=== PATIENT | female | born 1970 | race Caucasian/White ===

== ENCOUNTER 2018-07-02 12:53 | Emergency (ER) | payer BC, OTHER ==
[2018-07-02] MEDS ORDERED: METOCLOPRAMIDE 10 MG/2mL INJ ONE (13:30)
[2018-07-02] MEDS ORDERED: MORPHINE 4 MG/ML SYR ONE (13:30)
[2018-07-02] MEDS ORDERED: ONDANSETRON 4 MG/2 ML VIAL ONE (13:31)
[2018-07-02] MEDS ORDERED: NA CHLORIDE 0.9% 1,000 ML ONE (13:31)
--- NOTE | 2018-07-02 13:41 | RAD REPORT ---
EXAM DESCRIPTION: CT - Head Brain Wo Cont - 07/02/2018 1:32 pm CLINICAL HISTORY: Severe headache COMPARISON: None. TECHNIQUE: Axial 5 mm thick images of the head were obtained without IV contrast. All CT scans are performed using dose optimization technique as appropriate and may include automated exposure control or mA/KV adjustment according to patient size. FINDINGS: No intracranial hemorrhage, mass, edema or shift of mid-line structures. No acute infarcti on changes seen. Mild volume loss changes are present. No cortical edema or sulcal effacement. Ventri cles are normal. Mastoid air cells and visualized portions of the paranasal sinuses are clear. No acute bony findings. IMPRESSION: Negative non-contrast CT head examination for acute finding.
[2018-07-02 13:50] LABS: Absolute Lymphocytes (CBC) 2.6 K/uL (0.7-4.9); Absolute Monocytes 0.6 K/uL (0.1-1.3); Absolute Neutrophil 5.2 K/uL (1.8-8.0); Basophils % 1.1 % (0-1.3); Eosinophils % 3.2 % (0-4.4); Hematocrit 42.6 % (36.0-45.0); Lymphocytes % 29.9 % (15.3-44.8); MCV 103.7 fL (80-100); MPV 10.4 fL (7.6-11.3); Monocytes % 6.6 % (3.3-12.3); RBC Red Blood Cell Count 4.11 M/uL (3.86-4.86)
[2018-07-02 13:53] LABS: Protime INR 0.88
[2018-07-02 14:01] LABS: Potassium 3.8 mmol/L (3.5-5.1)
--- NOTE | 2018-07-02 15:08 | RAD REPORT ---
EXAM DESCRIPTION: CT - Head angio - 07/02/2018 2:36 pm CLINICAL HISTORY: Headache COMPARISON: CT head same date TECHNIQUE: During dynamic enhancement using nonionic IV contrast axial 1 millimeter thick images of the head were obtained. Sagittal and coronal reformatted images were generated and reviewed using max imum intensity projection protocol. The CT scan was performed using dose optimization techniques as appropriate to a performed exam incl uding one or more of the following: Automated exposure control, adjustment of the mA and/or kV accord ing to patient size (this includes techniques or standardized protocols for targeted exams where dose is matched to indication/reason for exam) and use of iterative reconstruction technique. FINDINGS: No aneurysm or mid vascular malformation. No vasculitis are diffuse vascular process ident ifiable. There is no stenosis, major branch occlusion or other acute vascular finding. Major venous s inuses are all patent. No extravasation of contrast. IMPRESSION: Negative CT angio head examination.
--- NOTE | 2018-07-02 15:12 | RAD REPORT ---
EXAM DESCRIPTION: CT - Neck Angio - 07/02/2018 2:37 pm CLINICAL HISTORY: Severe headache COMPARISON: CT head same date TECHNIQUE: During dynamic enhancement using nonionic IV contrast, axial 2 millimeter thick images we re obtained. Sagittal and coronal reformatted images were generated and reviewed using maximum intens ity projection protocol. The CT scan was performed using dose optimization techniques as appropriate to a performed exam incl uding one or more of the following: Automated exposure control, adjustment of the mA and/or kV accord ing to patient size (this includes techniques or standardized protocols for targeted exams where dose is matched to indication/reason for exam) and use of iterative reconstruction technique. FINDINGS: The aortic arch is 3 vessel. There is no stenosis at the great vessel or vertebral artery origins. The common carotid, internal carotid and vertebral artery show no stenosis, dissection or fo micheline abnormality. There is no aneurysm or vascular malformation. No suspicious vascular finding. No house spicious finding in the soft tissues. IMPRESSION: Negative CT angio neck examination.
--- NOTE | 2018-07-02 15:21 | ER ---
Nurse's Notes [facility] Name: Sally Anderson Age: 48 yrs Sex: Female : 1970 Arrival Date: 07/02/2018 Time: 12:56 Bed 30 Private MD: None, None Diagnosis: Headache associated with sexual activity Presentation: 07/02 13:03 Presenting complaint: Patient states: Severe headache that started during intercourse hb yesterday at 1400. Also c/o neck stiffness x 2-3 days. Denies headache hx/fever. Transition of care: patient was not received from another setting of care. Onset of symptoms was July 01, 2018. Risk Assessment: Do you want to hurt yourself or someone else? Patient reports no desire to harm self or others. Care prior to arrival: None. 13:03 Method Of Arrival: Ambulatory hb 13:03 Acuity: SAMANTHA 3 hb 13:15 Initial Sepsis Screen: Does the patient meet any 2 criteria? No. Patient's initial kr2 sepsis screen is negative. Does the patient have a suspected source of infection? No. Patient's initial sepsis screen is negative. Triage Assessment: 13:10 Headache History: Denies prior headaches. General: Appears in no apparent distress. kr2 uncomfortable, well groomed, well developed, well nourished. General: Behavior is calm, cooperative, appropriate for age. Pain: Also complains of nausea, inability to perform activities of daily living. Pain: Complains of pain in base of the skull and occipital area Pain does not radiate. Pain currently is 8 out of 10 on a pain scale. Quality of pain is described as aching, dull, Pain began suddenly, Is continuous. Historical: - Allergies: 13:06 No Known Allergies; hb - Home Meds: 13:06 None [Active]; hb - PMHx: 13:06 None; hb - PSHx: 13:06 Cholecystectomy; hb 13:06 Appendectomy; Tonsillectomy; hb - Immunization history:: Adult Immunizations up to date. - Social history:: Smoking status: Patient/guardian denies using tobacco. - Ebola Screening: : No symptoms or risks identified at this time. - Family history:: not pertinent. - Hospitalizations: : No recent hospitalization is reported. Screenin:54 Abuse screen: Denies threats or abuse. Denies injuries from another. Nutritional kr2 screening: No deficits noted. Tuberculosis screening: No symptoms or risk factors identified. Fall Risk IV access (20 points). Assessment: 13:10 General: Appears in no apparent distress. uncomfortable, well groomed, well developed, kr2 well nourished, Behavior is calm, cooperative, appropriate for age. Pain: Complains of pain in occipital area and base of the skull Pain does not radiate. Pain currently is 8 out of 10 on a pain scale. Quality of pain is described as aching, dull, Pain began suddenly, Is continuous, Alleviated by nothing. Neuro: Level of Consciousness is awake, alert, obeys commands, Oriented to person, place, time, situation, Appropriate for age Melter Loader are equal bilaterally Moves all extremities. Gait is steady, Speech is normal, Facial symmetry appears normal, Pupils are PERRLA, Intact Reports headache occipital area. Cardiovascular: Capillary refill < 3 seconds in bilateral fingers Patient's skin is warm and dry. Respiratory: Airway is patent Respiratory effort is even, unlabored, Respiratory pattern is regular, symmetrical. GI: Abdomen is flat, non-distended, Reports nausea. : Denies burning with urination. EENT: Nares are clear bilaterally Oral mucosa is moist. Derm: Skin is intact, is healthy with good turgor, Skin is pink, warm \\T\\ dry. Musculoskeletal: Circulation, motion, and sensation intact. 14:00 Reassessment: Patient appears in no apparent distress at this time. Patient and/or kr2 family updated on plan of care and expected duration. Pain level reassessed. Patient is alert, oriented x 3, equal unlabored respirations, skin warm/dry/pink. 14:50 Reassessment: Patient appears in no apparent distress at this time. Patient and/or kr2 family updated on plan of care and expected duration. Pain level reassessed. Patient is alert, oriented x 3, equal unlabored respirations, skin warm/dry/pink. Patient states, "the pain has let up a lot" Patient states feeling better. Patient states symptoms have improved. 15:30 Reassessment: Patient appears in no apparent distress at this time. Patient and/or kr2 family updated on plan of care and expected duration. Pain level reassessed. Patient is alert, oriented x 3, equal unlabored respirations, skin warm/dry/pink. Patient states feeling better. Patient states symptoms have improved. Vital Signs: 13:05 BP 148 / 102; Pulse 88; Resp 16; Temp 98.1; Pulse Ox 100% on R/A; Weight 86.18 kg; hb Height 5 ft. 6 in. (167.64 cm); Pain 8/10; 13:50 BP 133 / 67; Pulse 60; Resp 17; Pulse Ox 98% on R/A; kr2 14:51 BP 123 / 80; Pulse 60; Resp 17; Pulse Ox 98% on R/A; kr2 15:31 BP 119 / 76; Pulse 62; Resp 15; Pulse Ox 99% on R/A; kr2 13:05 Body Mass Index 30.67 (86.18 kg, 167.64 cm) hb ED Course: 12:56 Patient arrived in ED. sb2 12:57 None, None is Private Physician. sb2 13:05 Triage completed. hb 13:06 Arm band placed on right wrist. hb 13:09 Jamal Barone MD is Attending Physician. rn 13:15 Radiology exam delayed due to lab results not completed at this time. (BUN/Creatinine). sw 13:15 Patient has correct armband on for positive identification. Placed in gown. Bed in low kr2 position. Call light in reach. Side rails up X 1. Pulse ox on. NIBP on. Door closed. Noise minimized. Warm blanket given. Head of bed elevated. 13:17 Jessica Bonilla, RN is Primary Nurse. kr2 13:32 CT Head Brain wo Cont In Process Unspecified. EDMS 13:37 Initial lab(s) drawn, by mn, sent to lab. Inserted saline lock: 20 gauge in right kr2 antecubital area, using aseptic technique. ,using aseptic technique. IV inserted by concrete engineering technician Blood collected. 14:34 CT completed. Patient tolerated procedure well. Patient moved to CT via wheelchair. Patient moved back from CT. 14:36 Head angio In Process Unspecified. EDMS 14:37 Neck Angio In Process Unspecified. EDMS 15:31 No provider procedures requiring assistance completed. IV discontinued, intact, kr2 bleeding controlled, No redness/swelling at site. Pressure dressing applied. Administered Medications: 13:30 Drug: Reglan 10 mg Route: IVP; Site: right antecubital; kr2 14:53 Follow up: Response: No adverse reaction; Pain is decreased; Nausea is decreased kr2 13:30 Drug: morphine 4 mg Route: IVP; Site: right antecubital; kr2 14:53 Follow up: Response: No adverse reaction; Pain is decreased kr2 13:30 Drug: Zofran 4 mg Route: IVP; Site: right antecubital; kr2 14:53 Follow up: Response: No adverse reaction; Nausea is decreased kr2 13:40 Drug: NS 0.9% 1000 ml Route: IV; Rate: 1000 ml; Site: right antecubital; kr2 14:54 Follow up: Response: No adverse reaction; IV Status: Completed infusion kr2 Outcome: 15:21 Discharge ordered by . rn 15:32 Discharged to home ambulatory. kr2 15:32 Condition: good 15:32 Discharge instructions given to patient, Instructed on discharge instructions, follow up and referral plans. Demonstrated understanding of instructions, follow-up care. 15:33 Patient left the ED. kr2 Signatures: Dispatcher [employer] Triny Rivera Roman, MD MD rn Warren, Shannon sw Baxter, Heather, RN RN Jessica Bonilla RN RN kr2 Peggy Car2 Corrections: (The following items were deleted from the chart) 13:09 13:03 Presenting complaint: Patient states: Severe headache that started during hb intercourse yesterday at 1400. Denies headache hx hb
--- NOTE | 2018-07-02 15:21 | EDPHYS ---
Physician Documentation [facility] Name: Sally Anderson Age: 48 yrs Sex: Female : 1970 Arrival Date: 07/02/2018 Time: 12:56 Bed 30 Private MD: None, None ED Physician Jamal Barone HPI: 07/02 13:20 The patient has elevated blood pressure and discovered this at home. Onset: The rn symptoms/episode began/occurred yesterday, at 14:30. Modifying factors:. Severity of symptoms: At its worst the blood pressure was moderate, in the emergency department the blood pressure is unchanged. The patient has not experienced similar symptoms in the past. REports sudden onset posterior headache that began during sex yesterday, no fever, no vomiting, thinks slept wrong because now left neck is hurting, no hx of headaches like this. . Historical: - Allergies: 13:06 No Known Allergies; hb - Home Meds: 13:06 None [Active]; hb - PMHx: 13:06 None; hb - PSHx: 13:06 Cholecystectomy; hb 13:06 Appendectomy; Tonsillectomy; hb - Immunization history:: Adult Immunizations up to date. - Social history:: Smoking status: Patient/guardian denies using tobacco. - Ebola Screening: : No symptoms or risks identified at this time. - Family history:: not pertinent. - Hospitalizations: : No recent hospitalization is reported. ROS: 13:20 Constitutional: Negative for fever, chills, and weight loss, Eyes: Negative for injury, rn pain, redness, and discharge, Neck: + left neck pain Cardiovascular: Negative for chest pain, palpitations, and edema, Respiratory: Negative for shortness of breath, cough, wheezing, and pleuritic chest pain, Abdomen/GI: Negative for abdominal pain, nausea, vomiting, diarrhea, and constipation, MS/Extremity: Negative for injury and deformity, Skin: Negative for injury, rash, and discoloration, Neuro: + headache, no focal weakness/tingling/seizure Exam: 13:20 Constitutional: This is a well developed, well nourished patient who is awake, alert, rn security to room on own, holding head Head/Face: Normocephalic, atraumatic. Eyes: Pupils equal round and reactive to light, extra-ocular motions intact. Lids and lashes normal. Conjunctiva and sclera are non-icteric and not injected. Cornea within normal limits. Periorbital areas with no swelling, redness, or edema. ENT: MMM Neck: Trachea midline, no thyromegaly or masses palpated, and no cervical lymphadenopathy. Supple, full range of motion without nuchal rigidity, or vertebral point tenderness. No Meningismus. Skin: Warm, dry, no rash MS/ Extremity: Pulses equal, no cyanosis. Neuro: Awake and alert, GCS 15, oriented to person, place, time, and situation. Cranial nerves II-XII grossly intact. Motor strength 5/5 in all extremities. Sensory grossly intact. Cerebellar exam normal. Normal gait. Vital Signs: 13:05 BP 148 / 102; Pulse 88; Resp 16; Temp 98.1; Pulse Ox 100% on R/A; Weight 86.18 kg; hb Height 5 ft. 6 in. (167.64 cm); Pain 8/10; 13:50 BP 133 / 67; Pulse 60; Resp 17; Pulse Ox 98% on R/A; kr2 14:51 BP 123 / 80; Pulse 60; Resp 17; Pulse Ox 98% on R/A; kr2 15:31 BP 119 / 76; Pulse 62; Resp 15; Pulse Ox 99% on R/A; kr2 13:05 Body Mass Index 30.67 (86.18 kg, 167.64 cm) hb MDM: 13:09 Patient medically screened. rn 15:18 Differential diagnosis: hypertensive crisis, Malignant HTN, intracerebral hemorrhage, rn aneurysm, sex related headache, vascular headache. Data reviewed: vital signs, nurses notes, lab test result(s), radiologic studies, CT scan, and as a result, I will discharge patient. Counseling: I had a detailed discussion with the patient and/or guardian regarding: the historical points, exam findings, and any diagnostic results supporting the discharge/admit diagnosis, lab results, radiology results, the need for outpatient follow up, to return to the emergency department if symptoms worsen or persist or if there are any questions or concerns that arise at home. Response to treatment: the patient's symptoms have markedly improved after treatment, and as a result, I will discharge patient. Special discussion: I discussed with the patient/guardian in detail that at this point there is no indication for admission to the hospital. It is understood, however, that if the symptoms persist or worsen the patient needs to return immediately for re-evaluation. 07/02 13:09 Order name: CBC with Diff; Complete Time: 14:05 rn 07/02 13:09 Order name: Basic Metabolic Panel; Complete Time: 14:05 rn 07/02 13:09 Order name: Protime (+inr); Complete Time: 14:05 rn 07/02 13:09 Order name: Ptt, Activated; Complete Time: 14:05 rn 07/02 13:09 Order name: CT Head Brain wo Cont; Complete Time: 14:05 rn 07/02 15:32 Order name: Urine Dipstick--Ancillary (enter results) bd 07/02 13:09 Order name: IV Start; Complete Time: 13:41 rn 07/02 13:13 Order name: Head angio; Complete Time: 15:14 EDMS 07/02 13:13 Order name: Neck Angio; Complete Time: 15:14 EDMS Administered Medications: 13:30 Drug: Reglan 10 mg Route: IVP; Site: right antecubital; kr2 14:53 Follow up: Response: No adverse reaction; Pain is decreased; Nausea is decreased kr2 13:30 Drug: morphine 4 mg Route: IVP; Site: right antecubital; kr2 14:53 Follow up: Response: No adverse reaction; Pain is decreased kr2 13:30 Drug: Zofran 4 mg Route: IVP; Site: right antecubital; kr2 14:53 Follow up: Response: No adverse reaction; Nausea is decreased kr2 13:40 Drug: NS 0.9% 1000 ml Route: IV; Rate: 1000 ml; Site: right antecubital; kr2 14:54 Follow up: Response: No adverse reaction; IV Status: Completed infusion kr2 Disposition: 07/02/18 15:21 Discharged to Home. Impression: Headache associated with sexual activity. - Condition is Stable. - Discharge Instructions: Migraine Headache. - Medication Reconciliation Form, Thank You Letter, Antibiotic Education, Prescription Opioid Use form. - Follow up: Private Physician; When: As needed; Reason: Recheck today's complaints, Re-evaluation by your physician. - Problem is new. - Symptoms have improved. Signatures: Dispatcher [employer] EDMS Jamal Barone MD MD rn Baxter, Heather, RN RN hb Reaves, Jessica, RN RN kr2 Corrections: (The following items were deleted from the chart) 15:33 15:21 07/02/2018 15:21 Discharged to Home. Impression: Headache associated with sexual kr2 activity. Condition is Stable. Forms are Medication Reconciliation Form, Thank You Letter, Antibiotic Education, Prescription Opioid Use. Follow up: Private Physician; When: As needed; Reason: Recheck today's complaints, Re-evaluation by your physician. Problem is new. Symptoms have improved. rn
[2018-07-02 18:34] LABS: Urine Blood NEGATIVE (NEG); Urine Glucose NEGATIVE (NEG); Urine Protein NEGATIVE (NEG); Urine pH 5.5 (5.0-7.0)
== END 2018-07-02 15:33 | disposition home or self-care (01) ==
LOC: ER 12:53
DX: G44.82 Headache associated with sexual activity (principal)
CPT/HCPCS: 36415; 70450; 70496; 70498; 80048; 81003; 85025; 85610; 85730; 96361; 96374; 96375; 99284; J2405; J2765; J7030; Q9967

== ENCOUNTER 2021-06-17 19:29 | Emergency (ER) | payer BC, OTHER ==
--- NOTE | 2021-06-17 20:48 | EDPHYS ---
Physician Documentation [facility] Name: Sally Anderson Age: 51 yrs Sex: Female : 1970 Arrival Date: 06/17/2021 Time: 19:30 Bed 3 Private MD: ED Physician Robb Call HPI: 06/17 20:05 This 51 yrs old Female presents to ER via Ambulatory with complaints of pkl Breathing Difficulty, ARM SWELLING, Allergic Reaction. 20:05 The patient has shortness of breath at rest. Onset: The symptoms/episode began/occurred pkl just prior to arrival. Patient was stung several times on her left hand by a yellow jacket about 3 hours ago. Now complain of difficulty breathing. 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 - Social history:: Smoking status: unknown. ROS: 20:05 Eyes: Negative for injury, pain, redness, and discharge, ENT: Negative for injury, pkl pain, and discharge, Neck: Negative for injury, pain, and swelling, Cardiovascular: Negative for chest pain, palpitations, and edema. 20:05 Respiratory: Positive for shortness of breath, wheezing. 20:05 Abdomen/GI: Negative for abdominal pain, nausea, vomiting, and diarrhea. 20:05 Back: Negative for acute changes. 20:05 : Negative for urinary symptoms. 20:05 MS/extremity: Positive for bite, swelling, of the left hand. 20:05 Neuro: Negative for altered mental status, loss of consciousness. Exam: 20:05 Head/Face: Normocephalic, atraumatic. Eyes: Pupils equal round and reactive to light, pkl extra-ocular motions intact. Lids and lashes normal. Conjunctiva and sclera are non-icteric and not injected. Cornea within normal limits. Periorbital areas with no swelling, redness, or edema. ENT: Nares patent. No nasal discharge, no septal abnormalities noted. Tympanic membranes are normal and external auditory canals are clear. Oropharynx with no redness, swelling, or masses, exudates, or evidence of obstruction, uvula midline. Mucous membranes moist. Neck: Trachea midline, no thyromegaly or masses palpated, and no cervical lymphadenopathy. Supple, full range of motion without nuchal rigidity, or vertebral point tenderness. No Meningismus. Chest/axilla: Normal chest wall appearance and motion. Nontender with no deformity. No lesions are appreciated. Cardiovascular: Regular rate and rhythm with a normal S1 and S2. No gallops, murmurs, or rubs. Normal PMI, no JVD. No pulse deficits. 20:05 Respiratory: mild respiratory distress is noted, Respirations: labored breathing, that is mild, Breath sounds: bronchial sounds, that are mild, are scattered, rhonchi, that are mild, are scattered. 20:05 Abdomen/GI: Bowel sounds: normal, Palpation: abdomen is soft and non-tender, in all quadrants. 20:05 Back: Exam negative for acute changes. 20:05 : Exam negative for acute changes. 20:05 Musculoskeletal/extremity: Extremities: grossly normal except: noted in the left hand: pain, swelling. 20:05 Neuro: Orientation: is normal, Mentation: is normal, Cranial nerves: grossly normal, pkl Motor: is normal. Vital Signs: 19:37 BP 129 / 102; Pulse 99; Resp 28 S; Pulse Ox 96% on R/A; Weight 81.65 kg (R); Height 5 bb ft. 6 in. (167.64 cm) (R); 19:38 BP 129 / 102; Pulse 96; Resp 28; Temp 98.0(O); Pulse Ox 97% on 4 lpm NC; oe 21:00 BP 119 / 88; Pulse 84; Resp 18; Temp 98.7; Pulse Ox 100% on R/A; Pain 0/10; wg 19:37 Body Mass Index 29.05 (81.65 kg, 167.64 cm) bb MDM: 19:51 Patient medically screened. pkl 20:45 Data reviewed: vital signs, nurses notes. ED course: Patient feeling better. No pkl respiratory distress noted. Advised to return if necessary. Administered Medications: 19:49 Drug: NS 0.9% 500 ml Route: IV; Rate: bolus; Site: left antecubital; ea 20:00 Follow up: IV Status: Completed infusion; IV Intake: 500ml wg 19:50 Drug: NS 0.9% 1000 ml Route: IV; Rate: 125 ml/hr; Site: left antecubital; ea 21:00 Follow up: IV Status: Completed infusion; IV Intake: 250ml wg 19:50 Drug: SOLU-Medrol (methylPrednisoLONE) 125 mg Route: IVP; Site: left antecubital; ea 21:09 Follow up: Response: No adverse reaction wg 19:53 Drug: EPINEPHrine 1mg/mL 1:1,000 0.3 ml Route: Sub-Q; Site: right upper arm; ea 21:08 Follow up: Response: No adverse reaction wg 19:54 Drug: Pepcid (famotidine) 10 mg Route: IVP; Site: left antecubital; ea 21:08 Follow up: Response: No adverse reaction wg 19:54 Drug: Benadryl (diphenhydrAMINE) 25 mg Route: IVP; Site: left antecubital; ea 21:08 Follow up: Response: No adverse reaction wg Disposition Summary: 06/17/21 20:47 Discharge Ordered Location: Home pkl Problem: new pkl Symptoms: have improved pkl Condition: Stable pkl Diagnosis - Acute allergic reaction. Stung by yellow jacket lrft hand pkl Followup: pkl - With: Private Physician - When: 2 - 3 days - Reason: Re-evaluation by your physician Forms: - Medication Reconciliation Form pkl - Thank You Letter pkl - Antibiotic Education pkl - Prescription Opioid Use pkl Signatures: Robb Call MD MD pkl Latricia Dixon, Kathi Lang RN, RN RN ea Gamba, Liam, RN
--- NOTE | 2021-06-17 20:48 | ER ---
Nurse's Notes [facility] Name: Sally Anderson Age: 51 yrs Sex: Female : 1970 Arrival Date: 06/17/2021 Time: 19:30 Bed 3 Private MD: Diagnosis: Acute allergic reaction. Stung by yellow jacket lrft hand Presentation: 06/17 19:37 Chief complaint: Patient states: she was bitten by a yellow jacket several times on her bb left hand about 3 to 4 this afternoon took 2 Benadryl but symptoms are worsening she is short of breath and is having difficulty breathing. Coronavirus screen: At this time, the client does not indicate any symptoms associated with coronavirus-19. Ebola Screen: No symptoms or risks identified at this time. Initial Sepsis Screen: Does the patient meet any 2 criteria? No. Patient's initial sepsis screen is negative. Does the patient have a suspected source of infection? No. Patient's initial sepsis screen is negative. Risk Assessment: Do you want to hurt yourself or someone else? Patient reports no desire to harm self or others. Onset of symptoms was June 17, 2021. 19:37 Method Of Arrival: Ambulatory 19:37 Acuity: SAMANTHA 2 bb Triage Assessment: 21:07 General: Appears distressed, Behavior is anxious. Respiratory: Reports shortness of wg breath Onset: The symptoms/episode began/occurred today, the patient has moderate shortness of breath. 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 - Social history:: Smoking status: unknown. Screenin:54 Abuse screen: Denies threats or abuse. Nutritional screening: No deficits noted. ea Tuberculosis screening: No symptoms or risk factors identified. Fall Risk None identified. Assessment: 19:30 General: Appears uncomfortable, Behavior is appropriate for age. Pain: Complains of ea pain in left hand. Neuro: Level of Consciousness is awake, alert, obeys commands, Oriented to person, place, time. Cardiovascular: Patient's skin is warm and dry. Respiratory: Airway is patent Respiratory effort is even, labored, Respiratory pattern is tachypnea. Derm: Skin is pink, warm \T\ dry. 21:07 Cardiovascular: Rhythm is regular. Respiratory: Breath sounds are clear bilaterally. wg Vital Signs: 19:37 BP 129 / 102; Pulse 99; Resp 28 S; Pulse Ox 96% on R/A; Weight 81.65 kg (R); Height 5 bb ft. 6 in. (167.64 cm) (R); 19:38 BP 129 / 102; Pulse 96; Resp 28; Temp 98.0(O); Pulse Ox 97% on 4 lpm NC; oe 21:00 BP 119 / 88; Pulse 84; Resp 18; Temp 98.7; Pulse Ox 100% on R/A; Pain 0/10; wg 19:37 Body Mass Index 29.05 (81.65 kg, 167.64 cm) bb ED Course: 19:30 Patient arrived in ED. cf2 19:39 Triage completed. bb 19:39 Arm band placed on Patient placed in an exam room, on a stretcher, on pulse oximetry. bb 19:47 Kathi Redmond, ROSHAN is Primary Nurse. ea 19:51 Robb Call MD is Attending Physician. pkl 19:53 Inserted saline lock: 18 gauge in left forearm, using aseptic technique. wg 19:54 Patient has correct armband on for positive identification. Bed in low position. Call ea light in reach. Side rails up X2. 21:07 IV discontinued, intact, bleeding controlled, No redness/swelling at site. Pressure wg dressing applied. 21:08 No provider procedures requiring assistance completed. wg Administered Medications: 19:49 Drug: NS 0.9% 500 ml Route: IV; Rate: bolus; Site: left antecubital; ea 20:00 Follow up: IV Status: Completed infusion; IV Intake: 500ml wg 19:50 Drug: NS 0.9% 1000 ml Route: IV; Rate: 125 ml/hr; Site: left antecubital; ea 21:00 Follow up: IV Status: Completed infusion; IV Intake: 250ml wg 19:50 Drug: SOLU-Medrol (methylPrednisoLONE) 125 mg Route: IVP; Site: left antecubital; ea 21:09 Follow up: Response: No adverse reaction wg 19:53 Drug: EPINEPHrine 1mg/mL 1:1,000 0.3 ml Route: Sub-Q; Site: right upper arm; ea 21:08 Follow up: Response: No adverse reaction wg 19:54 Drug: Pepcid (famotidine) 10 mg Route: IVP; Site: left antecubital; ea 21:08 Follow up: Response: No adverse reaction wg 19:54 Drug: Benadryl (diphenhydrAMINE) 25 mg Route: IVP; Site: left antecubital; ea 21:08 Follow up: Response: No adverse reaction wg Intake: 20:00 IV: 500ml; Total: 500ml. wg 21:00 IV: 250ml; Total: 750ml. wg Outcome: 20:47 Discharge ordered by . delvis 21:06 Discharged to home ambulatory. wg 21:06 Condition: stable 21:06 Discharge instructions given to patient, Instructed on discharge instructions, follow up and referral plans. medication usage, Demonstrated understanding of instructions, follow-up care, medications, Prescriptions given X 1. 21:10 Patient left the ED. wg Signatures: Robb Call MD MD pkl Ballard, Brenda RN RN Pepe Hopson Elena, RN RN ea Frazier, Celesta Ronen Harrison RN
[2021-06-17 22:23] VITALS: BP 119/88; TEMP 98.7; O2SAT 100
== END 2021-06-17 21:10 | disposition home or self-care (01) ==
LOC: ER 19:29
DX: T63.461A Toxic effect of venom of wasps, accidental (unintentional), initial encounter (principal); Z91.030 Bee allergy status; Z91.038 Other insect allergy status
CPT/HCPCS: 96361; 96372; 96374; 96375; 99284

== ENCOUNTER 2023-05-24 21:59 | Emergency (ER) | payer BC, OTHER ==
--- OUTSIDE RECORDS SUMMARY | 2023-05-24 22:04 | XMS REPORT | Continuity of Care Document ---
:1970 Author Organization [facility] t Address [address] [place] [address] [place] [id number] Care Team Providers Name Role Phone Brunilda Cleaning Primary Care Physician Brunilda Cleaning Attending Clinician Unavailable Thao Kulkarni Attending Clinician Unavailable THAO KULKARNI Attending Clinician Unavailable Any Grant MD Attending Clinician Jacquie Crespo LVN Attending Clinician Jarrett Navarro MD Attending Clinician Braydon Perkins DO Attending Clinician Asif Martinez MD Attending Clinician ASIF MARTNIEZ Attending Clinician Unavailable Justin Cadena MD Attending Clinician [place] [employer] CRNA Attending Clinician Thao Kulkarni Admitting Clinician Unavailable Asif Martinez MD Admitting Clinician ASIF MARTINEZ Admitting Clinician Unavailable Payers Payer Name Policy Type Policy Number Effective Date Expiration Date [place] 6 [id number] [facility]iri t [employer] of - [facility] Problems Condition Condition Condition Status Onset Resolution Last Treating Co mments Source Name Details Category Date Date Treatment Clinician Date Perforated Perforated Disease Active 2020-10 U nivers appendix appendix 2-05 ity of 00:00: [place] 00 Medical Branch Acute Acute Disease Active 2020-10 Univers appendicit appendicit 2-04 it y of is with is with 00:00: [place] perforatio perforatio 00 Me dical n and n and Branch generalize generalize d d peritoniti peritoniti s, without s, without abscess or abscess or gangrene gangrene [id number] [place], [place] n [id number] joint, Spirit knee, - [facility] right [facility] [id number] Pain, [place] [id number] joint, [facility] knee, left - [facility] [id number] Other tear Problem Co mmon of medial Spirit meniscus - [facility] of right [facility] knee as [facility] current Medical injury, Center subsequent encounter [id number] Primary Problem Comm on osteoarthr Spirit itis of - [facility] right knee [facility] [id number] Pre-op Problem Common testing Spirit - [facility] [id number] Status Problem 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 [facility] Allergies, Adverse Reactions, Alerts Allergy Allergy Status Severity Reaction(s) Onset Inactive Treating Comm ents Source Name Type Date Date Clinician No Known DA Active U [facility] Allergie 1-13 [facility] [place] NO KNOWN Drug Active Univers ALLERGIE Class ity of S [facility] Social History Social Habit Start Date Stop Date Quantity Comments Source History SDOH University o f Alcohol Frequency [place] [facility] History SDOH University o f Alcohol Std Drinks [place] [facility] History SDOH University o f Alcohol Binge [place] [facility] al [facility] Exposure to Not sure University of SARS-CoV-2 (event) [facility] Gender identity [facility] Sexual orientation [facility] History of Tobacco [facility] - Use [facility] Alcohol intake 2021-09-06 2021-09-06 Current drinker Unive rsity of 00:00:00 00:00:[address] [facility] [place] ([facility] [place] Tobacco use and 2021-09-04 2021-09-04 Never used Universit y of exposure 00:00:00 00:00:00 [facility] Alcohol Comment 2021-09-04 2021-09-04 social drinker Unive rsity of 00:00:00 00:00:00 [facility] Sex Ass[birth year] At [birth year] [facility] Smoking Status Start Date Stop Date Source Tobacco smoking consumption [facility] unknown Never Smoker [facility] - [facility] Medications Ordered Filled Start Stop Current Ordering Indication Dosage Frequency Signature Comments Components Source Medication Medication Date Date Medication? Clinician (SIG) Name Name Acetaminoph Acetaminoph No 1{table Acetaminop en-Codeine en-Codeine - t_as_ne hen-Codein #3 300-30 #3 300-30 00:00: eded} e #3 MG MG 00 300-30 MG Acetaminoph Acetaminoph No 1{table Acetaminop en-Codeine en-Codeine - t_as_ne hen-Codein #3 300-30 #3 300-30 00:00: eded} e #3 MG MG 00 300-30 MG Acetaminoph Acetaminoph No 1{table Acetaminop en-Codeine en-Codeine - t_as_ne hen-Codein #3 300-30 #3 300-30 00:00: eded} e #3 MG MG 00 300-30 MG Mobic 7.5 Mobic 7.5 2021- No 1{table QD Mobic 7.5 MG MG 06-02 t} MG 00:00: 00:00 00 :00 Mobic 7.5 Mobic 7.5 2021- No 1{table QD Mobic 7.5 MG MG 06-02 t} MG 00:00: 00:00 00 :00 Mobic 7.5 Mobic 7.5 2021- No 1{table QD Mobic 7.5 MG MG 06-02 t} MG 00:00: 00:00 00 :00 Mobic 7.5 Mobic 7.5 2021- No 1{table QD Mobic 7.5 MG MG 06-02 t} MG 00:00: 00:00 00 :00 Mobic 7.5 Mobic 7.5 2021- No 1{table QD Mobic 7.5 MG MG 06-02 t} MG 00:00: 00:00 00 :00 Mobic 7.5 Mobic 7.5 2021- No 1{table QD Mobic 7.5 MG MG 06-02 t} MG 00:00: 00:00 00 :00 Mobic 7.5 Mobic 7.5 2021- No 1{table QD Mobic 7.5 MG MG 06-02 t} MG 00:00: 00:00 00 :00 Mobic 7.5 Mobic 7.5 2021- No 1{table QD Mobic 7.5 MG MG 06-02 t} MG 00:00: 00:00 00 :00 KCL 2020-10- No 40meq 40 mEq, Univers (KLOR-CON 2- 12- Oral, ity of M20) tablet 15:30: 14:55 ONCE, 1 [place] 40 mEq 00 :00 dose, On Medical [facility] Branch 09/06/21 at 0930, Routine SIMVASTATIN 2020-10 Yes 5mg Take 5 mg U nivers ORAL 2-06 by mouth. ity of 13:18: [address] sertraline 2020-10 Yes 100mg Take 100 Un ruben HCl 2-06 mg by ity of (SERTRALINE 13:18: [place] ORAL[place] [address] [place] [address] metformin 2020-10 Yes 500mg Take 500 Uni vers ER 500 mg 2-06 mg by ity of 24 hr 13:18: mouth [place] tablet 09 daily with Medical breakfast. Branch SIMVASTATIN 2020-10 Yes 5mg Take 5 mg U nivers ORAL 2-06 by mouth. ity of 13:18: [address] sertraline 2021-1 Yes 100mg Take 100 Un rub[place] HCl 2-06 mg by ity of (SERTRALINE 13:18: [place] ORAL[place] Medical Branch metformin 2020-10 Yes 500mg Take 500 Uni vers ER 500 mg 2-06 mg by ity of 24 hr 13:18: mouth [place] tablet 09 daily with Medical breakfast. Branch SIMVASTATIN 2020-10 Yes 5mg Take 5 mg U nivers ORAL 2-06 by mouth. ity of 13:18: [address] Branch sertraline 2020-10 Yes 100mg Take 100 Un ruben HCl 2-06 mg by ity of (SERTRALINE 13:18: [place] ORAL[place] metformin 2020-10 Yes 500mg Take 500 Uni vers ER 500 mg 2-06 mg by ity of 24 hr 13:18: mouth [place] tablet 09 daily with Medical breakfast. Branch SIMVASTATIN 2020-10 Yes 5mg Take 5 mg U nivers ORAL 2-06 by mouth. ity of 13:18: [address] sertraline 2020-10 Yes 100mg Take 100 Un ruben HCl 2-06 mg by ity of (SERTRALINE 13:18: [place] ORAL[place] [facility] Branch metformin 2020-10 Yes 500mg Take 500 Uni vers ER 500 mg 2-06 mg by ity of 24 hr 13:18: mouth [place] tablet 09 daily with Medical breakfast. Branch SIMVASTATIN 2020-10 Yes 5mg Take 5 mg U nivers ORAL 2-06 by mouth. ity of 13:18: [address] Branch sertraline 2020-10 Yes 100mg Take 100 Un ruben HCl 2-06 mg by ity of (SERTRALINE 13:18: [place] OR[place] [address] [place] [address] Branch metformin 2020-10 Yes 500mg Take 500 Uni vers ER 500 mg 2-06 mg by ity of 24 hr 13:18: mouth [place] tablet 09 daily with Medical breakfast. Branch SIMVASTATIN 2020-10 Yes 5mg Take 5 mg U nivers ORAL 2-06 by mouth. ity of 13:18: [address] Branch sertraline 2020-10 Yes 100mg Take 100 Un ruben HCl 2-06 mg by ity of (SERTRALINE 13:18: [place] ORAL[place] [facility] metformin 2020-10 Yes 500mg Take 500 Uni vers ER 500 mg 2-06 mg by ity of 24 hr 13:18: mouth [place] tablet 09 daily with Medical breakfast. Branch SIMVASTATIN 2020-10 Yes 5mg Take 5 mg U nivers ORAL 2-06 by mouth. ity of 13:18: [place] 09 Medical Branch sertraline 2020-10 Yes 100mg Take 100 Un ruben HCl 2-06 mg by ity of (SERTRALINE 13:18: [place]. [place] ORAL[place] 09 [place] Branch metformin 2020-10 Yes 500mg Take 500 Uni vers ER 500 mg 2-06 mg by ity of 24 hr 13:18: mouth [place] tablet 09 daily with Medical breakfast. Branch SIMVASTATIN 2020-10 Yes 5mg Take 5 mg U nivers ORAL 2-06 by mouth. ity of 13:18: [place] 09 Medical Branch sertraline 2020-10 Yes 100mg Take 100 Un ruben HCl 2-06 mg by ity of (SERTRALINE 13:18: [place]. [place] ORAL[place] 09 [place] Branch metformin 2020-10 Yes 500mg Take 500 Uni vers ER 500 mg 2-06 mg by ity of 24 hr 13:18: mouth [place] tablet 09 daily with Medical breakfast. Branch phentermine 2020-10- No 37.5mg Take 37.5 Univers 37.5 mg 2-06 12-06 mg by ity of capsule 11:44: 00:00 mouth [place] 07 :00 every Medical morning. Branch phentermine 2020-10 No 37.5mg Take 37.5 Univers 37.5 mg 2-06 12-06 mg by ity of capsule 11:44: 00:00 mouth [place] 07 :00 every Medical morning. Branch phentermine 2020-10- No 37.5mg Take 37.5 Univers 37.5 mg 2-06 12-06 mg by ity of capsule 11:44: 00:00 mouth [place] 07 :00 every Medical morning. Branch HYDROcodone 2020-10 Yes [id number] 1{tbl} Take 1 Un ruben -acetaminop 2-06 tablet by ity of hen 5-325 00:00: mouth [place] mg tablet 00 every 6 Medical (six) Branch hours as needed for Pain (scale 7-10). Indication s: acute pain HYDROcodone 2020-10 Yes [id number] 1{tbl} Take 1 Un ruben -acetaminop 2-06 tablet by ity of hen 5-325 00:00: mouth [place] mg tablet 00 every 6 Medical (six) Branch hours as needed for Pain (scale 7-10). Indication s: acute pain HYDROcodone 2020-10 Yes 4647 1{tbl} Take 1 Un ruben -acetaminop 2-06 tablet by ity of hen 5-325 00:00: mouth [place] mg tablet 00 every 6 Medical (six) Branch hours as needed for Pain (scale 7-10). Indication s: acute pain HYDROcodone 2020-10 Yes 4647 1{tbl} Take 1 Un ruben -acetaminop 2-06 tablet by ity of hen 5-325 00:00: mouth [place] mg tablet 00 every 6 Medical (six) Branch hours as needed for Pain (scale 7-10). Indication s: acute pain HYDROcodone 2020-10 Yes 4647 1{tbl} Take 1 Un ruben -acetaminop 2-06 tablet by ity of hen 5-325 00:00: mouth [place] mg tablet 00 every 6 Medical (six) Branch hours as needed for Pain (scale 7-10). Indication s: acute pain HYDROcodone 2020-10 Yes 4647 1{tbl} Take 1 Un ruben -acetaminop 2-06 tablet by ity of hen 5-325 00:00: mouth [place] mg tablet 00 every 6 Medical (six) Branch hours as needed for Pain (scale 7-10). Indication s: acute pain HYDROcodone 2020-10 Yes 4647 1{tbl} Take 1 Un ruben -acetaminop 2-06 tablet by ity of hen 5-325 00:00: mouth [place] mg tablet 00 every 6 Medical (six) Branch hours as needed for Pain (scale 7-10). Indication s: acute pain HYDROcodone 2020-10 Yes 4647 1{tbl} Take 1 Un ruben -acetaminop 2-06 tablet by ity of hen 5-325 00:00: mouth [place] mg tablet 00 every 6 Medical (six) Branch hours as needed for Pain (scale 7-10). Indication s: acute pain amoxicillin 2020-10 202- No [id number] 1{tbl} Take 1 Univers -clavulanat 2-06 12-15 tablet by it y of e 00:00: 05:59 mouth 2 [place] (AUGMENTIN) 00 :00 (two) Medical 875-125 mg times Branch per tablet daily for 8 days. amoxicillin 2020-10- No [id number] 1{tbl} Take 1 Univers -clavulanat 2-06 12-15 tablet by it y of e 00:00: 05:59 mouth 2 [place] (AUGMENTIN) 00 :00 (two) Medical 875-125 mg times Branch per tablet daily for 8 days. amoxicillin 2020-10- No [id number] 1{tbl} Take 1 Univers -clavulanat 2-06 12-15 tablet by it y of e 00:00: 05:59 mouth 2 [place] (AUGMENTIN) 00 :00 (two) Medical 875-125 mg times Branch per tablet daily for 8 days. amoxicillin 2020-10 No [id number] 1{tbl} Take 1 Univers -clavulanat 2- 12-15 tablet by it y of e 00:00: 05:59 mouth 2 [place] (AUGMENTIN) 00 :00 (two) Medical 875-125 mg times Branch per tablet daily for 8 days. amoxicillin 2020-10 No [id number] 1{tbl} Take 1 Univers -clavulanat 2- 12-15 tablet by it y of e 00:00: 05:59 mouth 2 [place] (AUGMENTIN) 00 :00 (two) Medical 875-125 mg times Branch per tablet daily for 8 days. potassium 2020-10 10meq 10 mEq, IV Univers chloride in 11-06 Piggyback, i ty of water 10 18:00: 21:38 Q1H, 3 [place] mEq/100 mL 00 :00 doses, Medical RTU 10 mEq First dose Bra nch (after last modificati on) on 09/05/21 at 1200, Last dose on 09/05/21 at 1400, Administer over 60 Minutes, 100 mL lidocaine 2020-10 PRN, Univers 1% 11-06 Starting ity of (XYLOCAINE) 17:16: 18:03 on Sun [place] 10 mg/mL (1 00 :46 09/05/21 at Me dical %) 1116, Branch injection Until 09/05/21 at 1203, Routine, Intra-op morpHINE 2020-10 Yes 2mg 2 mg, Slow Uni vers injection 2 2-05 IV Push, ity of mg 17:04: Q4HPRN, [place] [id number] Starting Medical on Sun Branch 09/05/21 at 1104, Until Discontinu ed, Routine, Breakthrou gh pain morpHINE 2020-10 Yes 2mg 2 mg, Slow Uni vers injection 2 2-05 IV Push, ity of mg 17:04: [place] [address] Starting Medical on Sun Branch 09/05/21 at 1104, Until Discontinu ed, Routine, Breakthrou gh pain HYDROcodone 2020-10 Yes 1{tbl} 1 tablet, Univers -acetaminop 2-05 Oral, ity of hen (NORCO) 17:04: Q6HPRN, [place] 10-325 mg 27 Starting Medica l tablet 1 on Sun Branch tablet 09/05/21 at 1104, Until Discontinu ed, Routine, Pain (scale 7-10) HYDROcodone 2020-10 Yes 1{tbl} 1 tablet, Univers -acetaminop 2-05 Oral, ity of hen (NORCO) 17:04: Q6HPRN, [place] 10-325 mg 27 Starting Medica l tablet 1 on Sun Branch tablet 09/05/21 at 1104, Until Discontinu ed, Routine, Pain (scale 7-10) HYDROcodone 2020-10 Yes 1{tbl} 1 tablet, Univers -acetaminop 2-05 Oral, ity of hen (NORCO 17:04: Q6HPRN, [place] 5) 5-325 mg 16 Starting Medi micheline tablet 1 on Sun Branch tablet 09/05/21 at 1104, Until Discontinu ed, Routine, Pain (scale 4-6) HYDROcodone 2020-10 Yes 1{tbl} 1 tablet, Univers -acetaminop 2-05 Oral, ity of hen (NORCO 17:04: Q6HPRN, [place] 5) 5-325 mg 16 Starting Medi micheline tablet 1 on Sun Branch tablet 09/05/21 at 1104, Until Discontinu ed, Routine, Pain (scale 4-6) ibuprofen 2020-10 Yes 400mg 400 mg, Univ ers (IBU) 2-05 Oral, ity of tablet 400 17:03: Q6HPRN, [place] mg 12 Starting Medical on Sun Branch 09/05/21 at 1103, Until Discontinu ed, Routine, Pain (scale 1-3) ibuprofen 2020-10 Yes 400mg 400 mg, Univ ers (IBU) 2-05 Oral, ity of tablet 400 17:03: Q6HPRN, [place] mg 12 Starting Medical on Sun Branch 09/05/21 at 1103, Until Discontinu ed, Routine, Pain (scale 1-3) bupivacaine 2020-10- No PRN, Unive rs (preserv 11-06 Starting ity of free) 0.5% 16:06: 18:03 on Sun [place] (SENSORCAIN 00 :46 09/05/21 at Pa dictx E [facility]) 0.5 1006, Branch % (5 mg/mL) Until Sun injection 09/05/21 at 1203, Routine, Intra-op piperacilli 2020-10 Yes 3.375g 3.375 g, Univers n-tazobacta 2-05 IV ity of m (ZOSYN) 15:45: [place]back, [place] 3.375 g in 00 Q6H ABX, Medic al NaCl 0.9% First dose Bran ch (NS) 100 mL on Sun MINI-BAG 09/05/21 at 0945, Until Discontinu ed, Administer over 30 Minutes, 100 mL
Reas on for Anti-Infec tive: Documented Infection< br>Documen alejandra Infection Site: Abdominal< br>Duratio n of Therapy: 14 days piperacilli 2020-10 Yes 3.375g 3.375 g, Univers n-tazobacta 2-05 IV ity of m (ZOSYN) 15:45: [place], [place] 3.375 g in 00 Q6H ABX, Medic al NaCl 0.9% First dose Bran ch (NS) 100 mL on Sun MINI-BAG 09/05/21 at 0945, Until Discontinu ed, Administer over 30 Minutes, 100 mL
Reas on for Anti-Infec tive: Documented Infection< br>Documen alejandra Infection Site: Abdominal< br>Duratio n of Therapy: 14 days sodium 2020-10- No PRN, Univers chloride 11-06 Starting ity of 0.9 % 15:45: 18:03 on [place] irrigation 00 :46 09/05/21 at Med ical solution 0945, Branch Until 09/05/21 at 1203, Intra-op enoxaparin 2020-10 Yes 40mg 40 mg, Unive rs (LOVENOX) 2- Subcutaneo ity of injection 15:00: [place], DAILY, [place] 40 mg 00 First dose Medical on [facility] 09/05/21 at 0900, Until Discontinu ed, Routine enoxaparin 2020-10 Yes 40mg 40 mg, Unive rs (LOVENOX) 2- Subcutaneo ity of injection 15:00: us, DAILY, [place] 40 mg 00 First dose Medical on [facility] 09/05/21 at 0900, Until Discontinu ed, Routine proMETHazin 2020-10 Yes 25mg 25 mg, IV U nivers e 2- Piggyback, ity of (PHENERGAN) 13:58: Q4HPRN, [place] 25 mg in 14 Starting Medical NaCl 0.9% on [facility] (NS) 50 mL 09/05/21 at IV 0758, piggyback Until Discontinu ed, Routine, Nausea and Vomiting (N/V) proMETHazin 2020-10 Yes 25mg 25 mg, IV U nivers e 11-06 Piggyback, ity of (PHENERGAN) 13:58: Q4HPRN, [place] 25 mg in 14 Starting Medical NaCl 0.9% on [facility] (NS) 50 mL 09/05/21 at IV 0758, piggyback Until Discontinu ed, Routine, Nausea and Vomiting (N/V) acetaminoph 2020-10- No 1000mg 1,000 mg, Univers en ADULT 11-06 IV ity of (OFIRMEV) 13:00: 12:28 Infusion, [place] injection 00 :00 Administer Medi micheline 1,000 mg over 15 Branch Minutes, ONCE, 1 dose, On [place] 09/05/21 at 0700, Routine
Indicatio n: Non-periop erative Patient
Approved by: Per Policy (NPO Status) piperacilli 2020-10- No 3.375g 3.375 g, Univers n-tazobacta 11-06 IV ity of m (ZOSYN) 10:00: 10:16 [place]back, [place] 3.375 g in 00 :00 ONCE, 1 Medica l NaCl 0.9% dose, On Branch (NS) 100 mL Sun MINI-BAG 09/05/21 at 0400, Administer over 30 Minutes, 100 mL
Reas on for Anti-Infec tive: Surgical Prophylaxi s
Surgi micheline Prophylaxi s: Abdominal< br>Dura tion of therapy: within 24 hours of surgery lactated 2020-10- No 1000mL at 100 Univ ers ringers IV 2-05 12-05 mL/hr, ity of infusion 06:30: 17:08 1,000 mL, [place] 1,000 mL 00 :13 IV Medical Infusion, Branch CONTINUOUS , Starting on 09/05/21 at 0030, Until 09/05/21 at 1108, Routine Sliding 2020-10 [facility] us, Q6H, ity of Insulin - 06:00: First dose [place] Lispro 00 on Sun Medical (HumaLOG) + 09/05/21 at Br anch Fsbg 0000, Testing Until Discontinu ed, Routine Sliding 2020-10 [facility] us, Q6H, ity of Insulin - 06:00: First dose [place] Lispro 00 on Sun Medical (HumaLOG) + 09/05/21 at Br anch Fsbg 0000, Testing Until Discontinu ed, Routine D5W 0.45% 2020-10- No 1000mL at 125 Uni vers NaCl 2-05 12-05 mL/hr, ity of (1/2NS) IV 06:00: 05:18 1,000 mL, [place] infusion 00 :31 IV Medical 1,000 mL Infusion, Branch CONTINUOUS , Starting on 09/05/21 at 0000, Until 09/04/21 at 2318, MACI piperacilli 2020-10- No 3.375g 3.375 g, Univers n-tazobacta 2- 12-05 IV ity of m (ZOSYN) 05:45: 05:08 Piggyback, [place] 3.375 g in 00 :00 ONCE, 1 Medica l NaCl 0.9% dose, On Branch (NS) 100 mL Sat MINI-BAG 09/04/21 at 2345, Administer over 30 Minutes, 100 mL
Reas on for Anti-Infec tive: Surgical Prophylaxi s
Surgi micheline Prophylaxi s: Abdominal< br>Dura tion of therapy: within 24 hours of surgery LORazepam 2020-10 Yes .5mg 0.5 mg, Unive rs (ATIVAN) 2-05 Slow IV ity of injection 05:22: Push, [place] 0.5 mg 25 QHSPRN, Medical Starting Branch on 09/04/21 at 2322, Until Discontinu ed, Routine, Anxiety LORazepam 2020-10 Yes .5mg 0.5 mg, Unive rs (ATIVAN) 2-05 Slow IV ity of injection 05:22: Push, [place] 0.5 mg 25 QHSPRN, Medical Starting Branch on 09/04/21 at 2322, Until Discontinu ed, Routine, Anxiety morpHINE 2020-10 4mg 4 mg, Slow Un ruben injection 4 2- 12-05 IV Push, ity of mg 05:15: 04:07 ONCE, 1 [place] 00 :00 dose, On Medical Sat Branch 09/04/21 at 2315, STAT glucagon 2020-10 Yes 1mg 1 mg, Univers (GLUCAGEN 2-05 Intramuscu ity of DIAGNOSTIC 04:52: lar, PRN, [place] KIT) 43 Starting Medical injection 1 on Sat Branch mg 09/04/21 at 2252, Until Discontinu ed, MACI, Blood Glucose < or = 70 mg/dL and patient is unable to swallow or has mental changes. dextrose 50 2020-10 Yes 25mL 25 mL, Univ ers % in water 2-05 Slow IV ity of (D50W) 04:52: Push, PRN, [place] injection 43 Starting Medica l 25 mL on Sat Branch 09/04/21 at 2252, Until Discontinu ed, MACI, Blood Glucose < or = 70 mg/dL and patient is unable to swallow or has mental status changes. glucagon 2020-10 Yes 1mg 1 mg, Univers (GLUCAGEN 2-05 Intramuscu ity of DIAGNOSTIC 04:52: lar, PRN, [place] KIT) 43 Starting Medical injection 1 on [facility] Branch mg 09/04/21 at 2252, Until Discontinu ed, MACI, Blood Glucose < or = 70 mg/dL and patient is unable to swallow or has mental changes. dextrose 50 2020-10 Yes 25mL 25 mL, Univ ers % in water 2-05 Slow IV ity of (D50W) 04:52: Push, PRN, [place] injection 43 Starting Medica l 25 mL on [facility] Branch 09/04/21 at 2252, Until Discontinu ed, MACI, Blood Glucose < or = 70 mg/dL and patient is unable to swallow or has mental status changes. ondansetron 2020-10 Yes 4mg 4 mg, Slow Univers (ZOFRAN 2-05 IV Push, ity of (PF)) 04:52: Q6HPRN, [place] injection 4 32 Starting Medi micheline mg on [facility] Branch 09/04/21 at 2252, Until Discontinu ed, Routine, Nausea and Vomiting (N/V) ondansetron 2020-10 Yes 4mg 4 mg, Slow Univers (ZOFRAN 2-05 IV Push, ity of (PF)) 04:52: Q6HPRN, [place] injection 4 32 Starting Medi micheline mg on [facility] Branch 09/04/21 at 2252, Until Discontinu ed, Routine, Nausea and Vomiting (N/V) morpHINE 2020-10- No 4mg 4 mg, Slow Un ruben injection 4 2- 12-05 IV Push, ity of mg 04:52: 17:07 Q4HPRN, [place] 26 :07 Starting Medical on [facility] Branch 09/04/21 at 2252, Until 09/05/21 at 1107, Routine, Pain (scale 7-10) FENTanyl PF 2020-10- No 50ug 50 mcg, Un ruben (SUBLIMAZE 2- 12-05 Slow IV ity o f (PF)) 04:30: 03:31 Push, [place] injection 00 :00 ONCE, 1 Medical 50 mcg dose, On Branch 09/04/21 at 2230, Routine NaCl 0.9% 2020-10- No 1000mL at 999 Uni vers (NS) IV 2- 12-05 mL/hr, ity of infusion 04:30: 05:49 Intravenou [place] 1,000 mL 00 :35 s, Medical CONTINUOUS Branch , Starting on 09/04/21 at 2230, Until 09/04/21 at 2349, Routine iohexol 2020-10- No [id number] 120mL 120 mL, Univers (OMNIPAQUE 11-06 Intravenou it y of 350 04:15: 03:55 s, ONCE, 1 [place] BULK-100 00 :00 dose, On Medical mL) Sat Branch injection 09/04/21 at 120 mL 2215, Routine ketorolac 2020-10- No 30mg 30 mg, Unive rs (TORADOL) 11-06 Slow IV ity of injection 03:45: 02:39 Push, [place] 30 mg 00 :00 ONCE, 1 Medical dose, On Branch 09/04/21 at 2145, Routine
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 Restricted medication : JARRETT NAVARRO FENTanyl PF 2020-10- No 50ug 50 mcg, Un ruben (SUBLIMAZE 11-06 Slow IV ity o f (PF)) 03:12: 03:13 Push, [place] injection 00 :00 ONCE, 1 Medical 50 mcg dose, On Branch 09/04/21 at 2115, STAT metFORMIN metFORMIN No metFORMIN HCl HCl HCl Contrave Contrave No Contrave metFORMIN metFORMIN No metFORMIN HCl HCl HCl Contrave Contrave No Contrave metFORMIN metFORMIN No metFORMIN HCl HCl HCl Contrave Contrave No Contrave metFORMIN metFORMIN No metFORMIN HCl HCl HCl Contrave Contrave No Contrave metFORMIN metFORMIN No metFORMIN HCl HCl HCl Contrave Contrave No Contrave metFORMIN metFORMIN No metFORMIN HCl HCl HCl Contrave Contrave No Contrave metFORMIN metFORMIN No metFORMIN HCl HCl HCl Contrave Contrave No Contrave metFORMIN metFORMIN No metFORMIN HCl HCl HCl Contrave Contrave No Contrave metFORMIN metFORMIN No metFORMIN HCl HCl HCl Contrave Contrave No Contrave Immunizations Ordered Filled Immunization Date Status Comments Sour e Immunization Name Name SARS-COV-2 COVID-2021-07-26 Completed Unive rsity of MODERNA VACCINE 00:00:00 [facility] SARS-COV-2 COVID-19 2021-07-26 Completed Unive rsity of MODERNA VACCINE 00:00:00 [facility] SARS-COV-2 COVID-19 2021-07-26 Completed Unive rsity of MODERNA VACCINE 00:00:00 [facility] SARS-COV-2 COVID-19 2021-07-26 Completed Unive rsity of MODERNA VACCINE 00:00:00 [facility] SARS-COV-2 COVID-19 2021-07-26 Completed Unive rsity of MODERNA VACCINE 00:00:00 [facility] SARS-COV-2 COVID-19 2021-07-26 Completed Unive rsity of MODERNA VACCINE 00:00:00 [facility] SARS-COV-2 COVID-19 2021-07-26 Completed Unive rsity of MODERNA VACCINE 00:00:00 [facility] SARS-COV-2 COVID-19 2021-07-26 Completed Unive rsity of MODERNA VACCINE 00:00:00 [facility] MODERNA COVID-19 2021-07-26 Completed Methodis t MRNA VACCINATION 00:00:00 [facility] Influenza Virus 2021-07-21 Completed Universit y of Vaccine 00:00:00 [facility] Influenza Virus 2021-07-21 Completed Universit y of Vaccine 00:00:00 [facility] Influenza Virus 2021-07-21 Completed Universit y of Vaccine 00:00:00 [facility] Influenza Virus 2021-07-21 Completed Universit y of Vaccine 00:00:00 [facility] Influenza Virus 2021-07-21 Completed Universit y of Vaccine 00:00:00 [facility] Influenza Virus 2021-07-21 Completed Universit y of Vaccine 00:00:00 [facility] Influenza Virus 2021-07-21 Completed Universit y of Vaccine 00:00:00 [facility] Influenza Virus 2021-07-21 Completed Universit y of Vaccine 00:00:00 [facility] MODERNA COVID-19 2020-10-21 Completed Methodis t MRNA VACCINATION 00:00:00 [facility] MODERNA COVID-19 2020-09-23 Completed Methodis t MRNA VACCINATION 00:00:00 [facility] Influenza Virus 2020-07-13 Completed Universit y of Vaccine Quad IM 3+ 00:00:00 [facility] Influenza Virus 2020-07-13 Completed Universit y of Vaccine Quad IM 3+ 00:00:00 [facility] Influenza Virus 2020-07-13 Completed Universit y of Vaccine Quad IM 3+ 00:00:00 [facility] Influenza Virus 2020-07-13 Completed Universit y of Vaccine Quad IM 3+ 00:00:00 [facility] Influenza Virus 2020-07-13 Completed Universit y of Vaccine Quad IM 3+ 00:00:00 [facility] Influenza Virus 2020-07-13 Completed Universit y of Vaccine Quad IM 3+ 00:00:00 [facility] Influenza Virus 2020-07-13 Completed Universit y of Vaccine Quad IM 3+ 00:00:00 [facility] Influenza Virus 2020-07-13 Completed Universit y of Vaccine Quad IM 3+ 00:00:00 [facility] Zoster Vaccine 2020-06-03 Completed University of Recombinant 00:00:00 [facility] Zoster Vaccine 2020-06-03 Completed University of Recombinant 00:00:00 [facility] Zoster Vaccine 2020-06-03 Completed University of Recombinant 00:00:00 [facility] Zoster Vaccine 2020-06-03 Completed University of Recombinant 00:00:00 [facility] Zoster Vaccine 2020-06-03 Completed University of Recombinant 00:00:00 [facility] Zoster Vaccine 2020-06-03 Completed University of Recombinant 00:00:00 [facility] Zoster Vaccine 2020-06-03 Completed University of Recombinant 00:00:00 [facility] Zoster Vaccine 2020-06-03 Completed University of Recombinant 00:00:00 [facility] Influenza Virus 2018-07-17 Completed Universit y of Vaccine (3+ yrs) 00:00:00 [facility] Influenza Virus 2018-07-17 Completed Universit y of Vaccine (3+ yrs) 00:00:00 [facility] Influenza Virus 2018-07-17 Completed Universit y of Vaccine (3+ yrs) 00:00:00 [facility] Influenza Virus 2018-07-17 Completed Universit y of Vaccine (3+ yrs) 00:00:00 [facility] Influenza Virus 2018-07-17 Completed Universit y of Vaccine (3+ yrs) 00:00:00 [facility] Influenza Virus 2018-07-17 Completed Universit y of Vaccine (3+ yrs) 00:00:00 [facility] Influenza Virus 2018-07-17 Completed Universit y of Vaccine (3+ yrs) 00:00:00 [facility] Influenza Virus 2018-07-17 Completed Universit y of Vaccine (3+ yrs) 00:00:00 [facility] Influenza Virus 2017-06-07 Completed Universit y of Vaccine Quad IM 3+ 00:00:00 [facility] Influenza Virus 2017-06-07 Completed Universit y of Vaccine Quad IM 3+ 00:00:00 [facility] Influenza Virus 2017-06-07 Completed Universit y of Vaccine Quad IM 3+ 00:00:00 [facility] Influenza Virus 2017-06-07 Completed Universit y of Vaccine Quad IM 3+ 00:00:00 [facility] Influenza Virus 2017-06-07 Completed Universit y of Vaccine Quad IM 3+ 00:00:00 [facility] Influenza Virus 2017-06-07 Completed Universit y of Vaccine Quad IM 3+ 00:00:00 [facility] Influenza Virus 2017-06-07 Completed Universit y of Vaccine Quad IM 3+ 00:00:00 [facility] Influenza Virus 2017-06-07 Completed Universit y of Vaccine Quad IM 3+ 00:00:00 [facility] Influenza Virus 2016-07-15 Completed Universit y of Vaccine Quad IM 00:00:00 [place] [facility] 6+ [facility] Influenza Virus 2016-07-15 Completed Universit y of Vaccine Quad IM 00:00:00 [place] [facility] Multi-dose 6+ [facility] Influenza Virus 2016-07-15 Completed Universit y of Vaccine Quad IM 00:00:00 [place] [facility] Multi-dose 6+ MO Branch Influenza Virus 2016-07-15 Completed Universit y of Vaccine Quad IM 00:00:00 [place] [facility] Multi-dose 6+ MO Branch Influenza Virus 2016-07-15 Completed Universit y of Vaccine Quad IM 00:00:00 [place] [facility] Multi-dose 6+ MO Branch Influenza Virus 2016-07-15 Completed Universit y of Vaccine Quad IM 00:00:00 [place] [facility] Multi-dose 6+ MO Branch Influenza Virus 2016-07-15 Completed Universit y of Vaccine Quad IM 00:00:00 [place] [facility] Multi-dose 6+ MO Branch Influenza Virus 2016-07-15 Completed Universit y of Vaccine Quad IM 00:00:00 [place] [facility] Multi-dose 6+ MO [facility] Tetanus Toxoid, 2014-08-02 Completed Universit y of Absorbed 00:00:00 [facility] Tetanus Toxoid, 2014-08-02 Completed Universit y of Absorbed 00:00:00 [facility] Tetanus Toxoid, 2014-08-02 Completed Universit y of Absorbed 00:00:00 [facility] Tetanus Toxoid, 2014-08-02 Completed Universit y of Absorbed 00:00:00 [facility] Tetanus Toxoid, 2014-08-02 Completed Universit y of Absorbed 00:00:00 [facility] Tetanus Toxoid, 2014-08-02 Completed Universit y of Absorbed 00:00:00 [facility] Tetanus Toxoid, 2014-08-02 Completed Universit y of Absorbed 00:00:00 [facility] Tetanus Toxoid, 2014-08-02 Completed Universit y of Absorbed 00:00:00 [facility] Influenza Virus 2014-07-14 Completed Universit y of Vaccine (3+ yrs) 00:00:00 [facility] Influenza Virus 2014-07-14 Completed Universit y of Vaccine (3+ yrs) 00:00:00 [facility] Influenza Virus 2014-07-14 Completed Universit y of Vaccine (3+ yrs) 00:00:00 [facility] Influenza Virus 2014-07-14 Completed Universit y of Vaccine (3+ yrs) 00:00:00 [facility] Influenza Virus 2014-07-14 Completed Universit y of Vaccine (3+ yrs) 00:00:00 [facility] Influenza Virus 2014-07-14 Completed Universit y of Vaccine (3+ yrs) 00:00:00 [facility] Influenza Virus 2014-07-14 Completed Universit y of Vaccine (3+ yrs) 00:00:00 [facility] Influenza Virus 2014-07-14 Completed Universit y of Vaccine (3+ yrs) 00:00:00 [facility] Influenza Virus 2013-07-05 Completed Universit y of Vaccine (3+ yrs) 00:00:00 [facility] Influenza Virus 2013-07-05 Completed Universit y of Vaccine (3+ yrs) 00:00:00 [facility] Influenza Virus 2013-07-05 Completed Universit y of Vaccine (3+ yrs) 00:00:00 [facility] Influenza Virus 2013-07-05 Completed Universit y of Vaccine (3+ yrs) 00:00:00 [place] [facility] Influenza Virus 2013-07-05 Completed Universit y of Vaccine (3+ yrs) 00:00:00 [facility] dictx Branch Influenza Virus 2013-07-05 Completed Universit y of Vaccine (3+ yrs) 00:00:00 [facility] dictx Branch Influenza Virus 2013-07-05 Completed Universit y of Vaccine (3+ yrs) 00:00:00 [facility] Influenza Virus 2013-07-05 Completed Universit y of Vaccine (3+ yrs) 00:00:00 [facility] Influenza Virus 2012-07-04 Completed Universit y of Vaccine (3+ yrs) 00:00:00 [facility] Influenza Virus 2012-07-04 Completed Universit y of Vaccine (3+ yrs) 00:00:00 [facility] Influenza Virus 2012-07-04 Completed Universit y of Vaccine (3+ yrs) 00:00:00 [facility] Influenza Virus 2012-07-04 Completed Universit y of Vaccine (3+ yrs) 00:00:00 [facility] Influenza Virus 2012-07-04 Completed Universit y of Vaccine (3+ yrs) 00:00:00 [facility] Influenza Virus 2012-07-04 Completed Universit y of Vaccine (3+ yrs) 00:00:00 [facility] Influenza Virus 2012-07-04 Completed Universit y of Vaccine (3+ yrs) 00:00:00 [facility] Influenza Virus 2012-07-04 Completed Universit y of Vaccine (3+ yrs) 00:00:00 [facility] Influenza Virus 2011-07-06 Completed Universit y of Vaccine (3+ yrs) 00:00:00 [facility] Influenza Virus 2011-07-06 Completed Universit y of Vaccine (3+ yrs) 00:00:00 [facility] Influenza Virus 2011-07-06 Completed Universit y of Vaccine (3+ yrs) 00:00:00 [facility] dictx Branch Influenza Virus 2011-07-06 Completed Universit y of Vaccine (3+ yrs) 00:00:00 [facility] Influenza Virus 2011-07-06 Completed Universit y of Vaccine (3+ yrs) 00:00:00 [facility] Influenza Virus 2011-07-06 Completed Universit y of Vaccine (3+ yrs) 00:00:00 [facility] Influenza Virus 2011-07-06 Completed Universit y of Vaccine (3+ yrs) 00:00:00 [facility] Influenza Virus 2011-07-06 Completed Universit y of Vaccine (3+ yrs) 00:00:00 [facility] TDAP 2011-04-29 Completed University of 00:00:00 [facility] TDAP 2011-04-29 Completed University of 00:00:[address] [facility] TDAP 2011-04-29 Completed University of 00:00:[address] [facility] TDAP 2011-04-29 Completed University of 00:00:[address] [facility] TDAP 2011-04-29 Completed University of 00:00:00 [facility] TDAP 2011-04-29 Completed University of 00:00:00 [facility] TDAP 2011-04-29 Completed University of 00:00:00 [facility] TDAP 2011-04-29 Completed University of 00:00:00 [facility] Influenza Virus 2010-07-05 Completed Universit y of Vaccine (3+ yrs) 00:00:00 [facility] Influenza Virus 2010-07-05 Completed Universit y of Vaccine (3+ yrs) 00:00:00 [facility] Influenza Virus 2010-07-05 Completed Universit y of Vaccine (3+ yrs) 00:00:00 [facility] Influenza Virus 2010-07-05 Completed Universit y of Vaccine (3+ yrs) 00:00:00 [facility] Influenza Virus 2010-07-05 Completed Universit y of Vaccine (3+ yrs) 00:00:00 [facility] Influenza Virus 2010-07-05 Completed Universit y of Vaccine (3+ yrs) 00:00:00 [facility] Influenza Virus 2010-07-05 Completed Universit y of Vaccine (3+ yrs) 00:00:00 [facility] Influenza Virus 2010-07-05 Completed Universit y of Vaccine (3+ yrs) 00:00:00 [facility] H1n1 Vaccine 2009-07-28 Completed University o f 00:00:00 [facility] H1n1 Vaccine 2009-07-28 Completed University o f 00:00:00 [facility] H1n1 Vaccine 2009-07-28 Completed University o f 00:00:00 [facility] H1n1 Vaccine 2009-07-28 Completed University o f 00:00:00 [facility] H1n1 Vaccine 2009-07-28 Completed University o f 00:00:00 [facility] H1n1 Vaccine 2009-07-28 Completed University o f 00:00:00 [facility] H1n1 Vaccine 2009-07-28 Completed University o f 00:00:00 [facility] H1n1 Vaccine 2009-07-28 Completed University o f 00:00:00 [facility] Influenza Virus 2009-07-08 Completed Universit y of Vaccine (3+ yrs) 00:00:00 [facility] Influenza Virus 2009-07-08 Completed Universit y of Vaccine (3+ yrs) 00:00:00 [facility] Influenza Virus 2009-07-08 Completed Universit y of Vaccine (3+ yrs) 00:00:00 [facility] Influenza Virus 2009-07-08 Completed Universit y of Vaccine (3+ yrs) 00:00:00 [facility] Influenza Virus 2009-07-08 Completed Universit y of Vaccine (3+ yrs) 00:00:00 [facility] Influenza Virus 2009-07-08 Completed Universit y of Vaccine (3+ yrs) 00:00:00 [facility] Influenza Virus 2009-07-08 Completed Universit y of Vaccine (3+ yrs) 00:00:00 [facility] Influenza Virus 2009-07-08 Completed Universit y of Vaccine (3+ yrs) 00:00:00 [facility] Vital Signs Vital Name Observation Time Observation Value Comments Source height 2022-07-28 08:00:00 66 [in_i] [facility] weight 2022-07-28 08:00:00 170 [lb_av] [facility] temperature 2022-07-28 08:00:00 97.3 [degF] [facility] bmi 2022-07-28 08:00:00 27.44 kg/m2 [facility] blood pressure 2022-07-28 08:00:00 122 mm[Hg] [facility] blood pressure 2022-07-28 08:00:00 72 mm[Hg] [facility] diastolic [facility] height 2022-06-16 13:15:00 66 [in_i] [facility] weight 2022-06-16 13:15:00 170 [lb_av] [facility] temperature 2022-06-16 13:15:00 98.0 [degF] [facility] bmi 2022-06-16 13:15:00 27.44 kg/m2 [facility] blood pressure 2022-06-16 13:15:00 120 mm[Hg] [facility] systolic [facility] blood pressure 2022-06-16 13:15:00 80 mm[Hg] [facility] diastolic [facility] height 2022-06-02 08:30:00 66 [in_i] [facility] weight 2022-06-02 08:30:00 170 [lb_av] [facility] temperature 2022-06-02 08:30:00 97.3 [degF] [facility] bmi 2022-06-02 08:30:00 27.44 kg/m2 [facility] blood pressure 2022-06-02 08:30:00 116 mm[Hg] [facility] systolic [facility] blood pressure 2022-06-02 08:30:00 75 mm[Hg] [facility] diastolic [facility] Systolic blood 2021-09-06 17:14:00 125 mm[Hg] [facility] Diastolic blood 2021-09-06 17:14:00 57 mm[Hg] Unive rsity of pressure [facility] Heart rate 2021-09-06 17:14:00 80 /min Universi [facility] Body temperature 2021-09-06 17:14:00 36.94 Michelle Univ ersity [facility] Respiratory rate 2021-09-06 17:14:00 18 /[facility] Oxygen saturation in 2021-09-06 17:14:00 94 /min University Arterial blood by [facility] Pulse oximetry Branch Body weight 2021-09-06 09:44:00 86.002 kg [facility] [place] [facility] BMI 2021-09-06 09:44:00 29.70 kg/m2 [facility] [place] [facility] Body height 2021-09-05 02:21:00 170.2 cm [facility] [place] [facility] Heart rate 2021-09-05 17:05:00 99 /min [facility] [place] [facility] Respiratory rate 2021-09-05 17:05:00 12 /min Univ ersity [facility] [place] [facility] Oxygen saturation in 2021-09-05 17:05:00 95 /min University of Arterial blood by [place] [employer] micheline Pulse oximetry Branch Systolic blood 2021-09-05 17:04:00 113 mm[Hg] Univer sity of pressure [facility] Diastolic blood 2021-09-05 17:04:00 62 mm[Hg] Unive rsity of pressure [facility] Body temperature 2021-09-05 16:53:00 37.17 Michelle Univ ersity [facility] [place] [facility] Body weight 2021-09-05 10:28:00 85.276 kg [facility] [place] [facility] BMI 2021-09-05 10:28:00 29.70 kg/m2 [facility] [place] [facility] Body height 2021-09-05 02:21:00 170.2 cm [facility] [place] [facility] Systolic blood 2021-09-06 17:14:00 125 mm[Hg] Univer sity of pressure [facility] Diastolic blood 2021-09-06 17:14:00 57 mm[Hg] Unive rsity of pressure [facility] Heart rate 2021-09-06 17:14:00 80 /min [facility]i [facility] [place] [facility] Body temperature 2021-09-06 17:14:00 36.94 Mcihelle Univ ersity [facility] [place] [facility] Respiratory rate 2021-09-06 17:14:00 18 /min Univ ersity [facility] [place] [facility] Oxygen saturation in 2021-09-06 17:14:00 94 /min University of Arterial blood by [place] [employer] micheline Pulse oximetry Branch Body weight 2021-09-06 09:44:00 86.002 kg [facility] [place] [facility] BMI 2021-09-06 09:44:00 29.70 kg/m2 [facility] [place] [facility] Body height 2021-09-05 02:21:00 170.2 cm [facility] Procedures Procedure Date / Time Performing Clinician Source Performed [id number] 2021-10-18 00:00:00 [facility] [id number] 2021-10-18 00:00:00 [facility] [id number] 2021-10-18 00:00:00 [facility] POCT GLUCOSE (AUTOMATED) 2021-09-06 17:46:00 Asif Martinez [facility] POCT GLUCOSE (AUTOMATED) 2021-09-06 17:46:00 Asif Martinez [facility] POCT GLUCOSE (AUTOMATED) 2021-09-06 17:46:00 Asif [facility] BASIC METABOLIC PANEL 2021-09-06 10:45[facility], CO2, GLUCOSE, Medica l Branch BUN, CREATININE, CA) CBC WITH DIFF 2021-09-06 10:45:00 Vinny [facility] CBC WITH DIFF 2021-09-06 10:45:00 glenn [facility] BASIC METABOLIC PANEL 2021-09-06 10:45[facility]00 [facility] ([facility], K, CL, CO2, GLUCOSE, Medica l Branch BUN, CREATININE, CA) BASIC METABOLIC PANEL 2021-09-06 10:45[facility]00 [facility] ([facility], K, CL, CO2, GLUCOSE, Medica l Branch BUN, CREATININE, CA) CBC WITH DIFF 2021-09-06 10:45[facility] 2021-09-06 05:29:00 Asif Martinez [facility] POCT GLUCOSE (AUTOMATED) 2021-09-06 05:29:00 Asif Martinez [facility] POCT GLUCOSE (AUTOMATED) 2021-09-06 05:29:00 Asif Martinez [facility] POCT GLUCOSE (AUTOMATED) 2021-09-06 00:10:00 Jarrett Navarro Un iversity [facility] POCT GLUCOSE (AUTOMATED) 2021-09-06 00:10:00 Jarrett Navarro Un iversity [facility] POCT GLUCOSE (AUTOMATED) 2021-09-06 00:10:00 Jarrett Navarro Un iversity [facility] LAPAROSCOPIC APPENDECTOMY 2021-09-05 14:45:00 [facility] LAPAROSCOPIC APPENDECTOMY 2021-09-05 14:45:00 [facility] LAPAROSCOPIC APPENDECTOMY 2021-09-05 14:45:00 Any [facility] CBC WITH DIFF 2021-09-05 12:31:00 [facility] CBC WITH DIFF 2021-09-05 12:31:00 [facility] CBC WITH DIFF 2021-09-05 12:31:00 [facility] POCT GLUCOSE (AUTOMATED) 2021-09-05 11:37:00 Jarrett Navarro Un iversity [facility] POCT GLUCOSE (AUTOMATED) 2021-09-05 11:37:00 Jarrett Navarro Un iversity [facility] POCT GLUCOSE (AUTOMATED) 2021-09-05 11:37:00 [facility] VITAMIN B12, LEVEL 2021-09-05 10:21:00 Braydon Perkins [facility] FOLATE 2021-09-05 10:21:00 [facility] BASIC METABOLIC PANEL 2021-09-05 10:21:00 Braydon Perkins [facility] (NA, K, CL, CO2, GLUCOSE, Medica l Branch BUN, CREATININE, CA) BASIC METABOLIC PANEL 2021-09-05 10:21:00 Braydon Perkins [facility] (NA, K, CL, CO2, GLUCOSE, Medica l Branch BUN, CREATININE, CA) VITAMIN B12, LEVEL 2021-09-05 10:21:00 Braydon Perkins [facility] FOLATE 2021-09-05 10:21:00 [facility]don [facility] VITAMIN B12, LEVEL 2021-09-05 10:21:00 Braydon Perkins [facility] FOLATE 2021-09-05 10:21:00 [facility] BASIC METABOLIC PANEL 2021-09-05 10:21:00 Braydon Perkins [facility] (NA, K, CL, CO2, GLUCOSE, Medica l Branch BUN, CREATININE, CA) POCT GLUCOSE (AUTOMATED) 2021-09-05 06:24:00 Jarrett Navarro [facility] POCT GLUCOSE (AUTOMATED) 2021-09-05 06:24:00 Jarrett Navarro [facility] POCT GLUCOSE (AUTOMATED) 2021-09-05 06:24:00 Jarrett Navarro [facility] GLYCOSYLATED HEMOGLOBIN 2021-09-05 05:28:00 [facility] (A1C) Medical Branch GLYCOSYLATED HEMOGLOBIN 2021-09-05 05:28:00 [facility] (A1C) Medical [place] GLYCOSYLATED HEMOGLOBIN 2021-09-05 05:28:00 [facility] ([facility]) Medical Branch CT ABDOMEN PELVIS W 2021-09-05 04:02:16 Jarrett Navarro [facility] CONTRAST Medical Branch CT ABDOMEN PELVIS W 2021-09-05 04:02:16 Jarrett Navarro [facility] CONTRAST Medical Branch CT ABDOMEN PELVIS W 2021-09-05 04:02:16 Jarrett Navarro [facility] CONTRAST Medical Branch COVID-19 (ID NOW RAPID 2021-09-05 04:01:00 [facility]) Medical Branch LAB ONLY COVID 2021-09-05 04:01:00 Jarrett Navarro [facility] INTERPRETATION Medical Branch COVID-19 (ID NOW RAPID 2021-09-05 04:01:00 [facility] TEST[facility] Medical Branch LAB ONLY COVID 2021-09-05 04:01:00 Jarrett Navarro [facility] INTERPRETATION [facility] Branch COVID-19 (ID NOW RAPID 2021-09-05 04:01:00 [facility] TEST[facility] Medical Branch LAB ONLY COVID 2021-09-05 04:01:00 Jarrett Navarro [facility] INTERPRETATION [facility] LIPASE 2021-09-05 02:23:00 Jarrett Navarro [facility] MAGNESIUM 2021-09-05 02:23:00 [facility] COMP. METABOLIC PANEL 2021-09-05 02:23:00 Jarrett Navarro [facility] ([id number]) [facility] CBC WITH DIFF 2021-09-05 02:23:00 Jarrett Navarro [facility] URINALYSIS 2021-09-05 02:23:00 Jarrett Navarro [facility] COMP. METABOLIC PANEL 2021-09-05 02:23:00 Jarrett Navarro [facility] ([id number]) [facility] CBC WITH DIFF 2021-09-05 02:23:00 Jarrett Navarro [facility] LIPASE 2021-09-05 02:23:00 Jarrett Navarro [facility] URINALYSIS 2021-09-05 02:23:00 Jarrett Navarro [facility] MAGNESIUM 2021-09-05 02:23:00 [facility] LIPASE 2021-09-05 02:23:00 Jarrett Navarro [facility] MAGNESIUM 2021-09-05 02:23:00 [facility] COMP. METABOLIC PANEL 2021-09-05 02:23:00 Jarrett Navarro [facility] ([id number]) [facility] CBC WITH DIFF 2021-09-05 02:23:00 Jarrett Navarro [facility] URINALYSIS 2021-09-05 02:23:00 Jarrett Navarro [facility] NOTICE OF PRIVACY 2021-09-05 02:13:46 Doctor Unassigned, [facility] [facility] NOTICE OF PRIVACY 2021-09-05 02:13:46 Doctor Unassigned, [facility] NOTICE OF PRIVACY 2021-09-05 02:13:46 Doctor Unassigned, [facility] CONSENT/REFUSAL FOR 2021-09-05 02:13:08 Doctor Unassigned, [facility] [place] [facility] CONSENT/REFUSAL FOR 2021-09-05 02:13:08 Doctor Unassigned, [facility] DIAGNOSIS AND TREATMENT [place] [facility] CONSENT/REFUSAL FOR 2021-09-05 02:13:08 Doctor Unassigned, [facility]NOS[facility] [place] [facility] Plan of Care Planned Activity Planned Date Details Comments Source Future Scheduled 2023-05-08 [facility] Test 06:18:31 malignant neoplasm of colon (procedure) [code = 265623682] Future Scheduled 2023-05-08 [facility] Test 06:18:31 malignant neoplasm of colon (procedure) [code = 903769540] Future Scheduled 2023-05-08 [facility] 06:18:31 screening (procedure) [code = 112571795] Future Scheduled 2023-05-08 [facility] Test 06:18:31 malignant neoplasm of cervix (procedure) [code = 249946744] Future Scheduled 2023-05-08 BREAST CANCER [facility] Test 06:18:31 SCREENING [code = BREAST CANCER SCREENING] Future Scheduled 2023-05-08 [facility] Test 06:18:31 malignant neoplasm of colon (procedure) [code = 026594403] Future Scheduled 2023-05-08 [facility] Test 06:18:31 malignant neoplasm of colon (procedure) [code = 680086723] Future Scheduled 2023-05-08 [facility] 06:18:31 (2 of 2) [code = SHINGLES VACCINES (2 of 2)] Future Scheduled 2023-05-08 COVID-19 VACCINE (4 [facility] 06:18:31 - Moderna series) [code = COVID-19 VACCINE (4 - Moderna series)] Future Scheduled 2023-05-08 INFLUENZA VACCINE [facility] 06:18:31 [code = INFLUENZA VACCINE] Future Scheduled 2023-05-08 Scre[facility] Test 06:18:31 malignant neoplasm of colon (procedure) [code = 923858151] Encounters Start End Encounter Admission Attending Care Care Encounter Source Date/Time Date/Time Type Type Clinicians Facility Department ID 2022-11-10 Outpatient Black, STLMLC STLMLC [id number] Common 15:58:01 Brunilda [id number] [facility] 2022-09-28 Outpatient Black, STLMLC STLMLC [id number] Common 14:29:03 Brunilda [id number] [facility] 2022-06-13 Outpatient Black, STLMLC STLMLC [id number] Common 12:11:02 Brunilda [id number] [facility] 2022-06-02 Outpatient Black, STLMLC STLMLC [id number] Common 08:31:03 Brunilda [id number] [facility] 2022-07-28 2022-07-28 NON-BILLAB STLMLC STLMLC [id number] Common 00:00:00 00:00:00 LE VISIT Spiri t [facility] 2022-06-27 2022-06-27 (TEL) STLMLC STLMLC [id number] Co mmon 00:00:00 00:00:00 [facility] 2022-06-21 2022-06-21 (TEL) STLMLC STLMLC [id number] Co mmon 00:00:00 00:00:00 [facility] 2022-06-20 2022-06-20 (TEL) STLMLC STLMLC [id number] Co mmon 00:00:00 00:00:00 [facility] 2022-06-16 2022-06-16 OFFICE STLMLC STLMLC [id number] Co mmon 00:00:00 00:00:00 VISIT EST Spir it PT LEVEL 3 [facility] 2022-06-02 2022-06-02 OFFICE STLMLC STLMLC [id number] Co mmon 00:00:00 00:00:00 VISIT NEW Spir it PT LEVEL 3 - [facility] 2022-06-02 2022-06-02 [facility] [id number] Co mmon 00:00:00 00:00:00 Spirit - [facility] 2021-10-18 2021-10-21 Inpatient EL Thao Kulkarni [facility] [id number] [facility] [facility] 12:28:00 13:47:00 30 [facility] 2021-10-12 2021-10-12 Outpatient KULKARNITHAO CLAY [facility] [id number] [place] 00:00:00 00:00:00 224 Method i 2021-10-06 2021-10-06 Telephone ESTRELLITA Grant 1.2.840.114 [id number] Univers 00:00:00 00:00:00 Any CRUMP 350.1.13.10 it y of [facility] 4.2.7.2.686 Jay as [phone] [facility] 010 Branch 2021-10-06 2021-10-06 Multidisci [facility] 1.2.840.114 [id number] Univers 00:00:00 00:00:00 plinary Any [facility] 350.1.13.10 i ty of [facility] 4.2.7.2.686 [place] [phone] [facility] 188 Branch 2021-09-17 2021-09-17 Telephone SHARI Grant 1.2.840.114 [id number] Univers 00:00:00 00:00:00 Any [place] 350.1.13.10 i ty [place] [phone] Pa dical NAL 188 Branch BUILDING 2021-09-07 2021-09-07 Transition JUAN Crespo 1.2.840.114 [id number] Univers 00:00:00 00:00:00 of Care Jacquie LEON 350.1.13.10 [place] [id number] [facility] 403 Branch 2021-09-04 2021-09-06 [facility] [place] S 1.2.840.5 [id number] Univers 20:13:00 13:14:00 Encounter Braydon Perkins 92790.1.1 ity of [place] 3.104.2.7 [place] .3.027718 Medica l .8 Branch 2021-09-04 2021-09-06 [facility]patient [facility] [id number] Univers 20:13:00 13:14:00 ASIF ity of [facility] 2021-09-06 2021-09-06 Telephone [facility] 1.2.840.114 [id number] Univers 00:00:00 00:00:00 Any [place] 350.1.13.10 i ty of [facility] 4.[place] [id number] Pa dical NAL 188 [facility] 2021-09-05 2021-09-05 Surgery [facility] 1.2.952.563 [id number] Univers 09:00:00 11:09:00 Any [place] 350.1.13.10 i ty [place] SURGICAL [id number] [facility] 020 [place] 2021-09-05 2021-09-05 Anesthesia Justin Cadena 1.2.840.1 [id number] Univers 09:00:00 10:52:00 Event [place] 11450.1.1 ity of 3.104.2.7 [place] .3.328313 Medica l .8 Branch 2021-09-04 2021-09-04 Travel 1.2.840.1 1.2.859.161 [id number] [id number] Univers 00:00:00 00:00:00 10889.1.1 350.1.13.10 ity of 3.104.2.7 4.[place]7.3.698 [place] .3.939628 084.8 Medica l .8 [place] Results Test Description Test Time Test Comments Results Result Comments Source SURGICAL 2021-10-21 16:18:00 Test Item Value Reference Range Interpretation Comme nts SURGICAL RUN DATE: (test 10/21/21 [facility] PAGE 1 RUN TIME: 1619 Specimen Inquiry RUN USER: INTERFACE code = PATIENT: SALLY HOWELL [id number] LOC: DANITA U #: [id number] AGE/SX: 51/F ROOM: [facility] RE10/18/21REG DR: Thao Kulkarni MD : 68 BED: A DIS: 10/21/21 STATUS: DIS IN TLOC: SPEC #: [id number] RECD: STATUS: JOVON REQ #: [id number] SERENE: 10/18/21- [address] [facility] [address]: Thao Kulkarni MD ENTERED: 10/02 04/22-901 SP TYPE: SURGICAL OTHR DR: Brunilda Cleaning ORDERED: ANATOMIC SPEC/2, SPEC TRACK, 65084, 30769, 69108, 10415/3, 51170 COPIES TO: Thao Kulkarni MD [address] [place], [place] [address] [facility] [address] [facility] [address] [place] [address] PROCEDURES: 883 05 (10/18/21-901) 50771 (10/18/21) 52132 (10/20/21) 08149 (10/21/21) 39495 (10/21) TISSUES: A. PERITONEUM BIOPSY - FROZEN, PERITONEAL NODULE B. COLON NOS - RIGHT COLON SAMAN L DIAGNOSIS A. PERITONEAL NODULE, BIOPSY: - Fibroadipose tissue with inflammation, fat necrosis a nd reactive changes. - No neuroendocrine tumor identified.- See comment. B. COLON, RIGHT, RESECTION:- No residual neuroendocrine tumor identified- Unremarkable small bowel and colonic mucosa. - Focal reactive changes in pericolonic adipose tissue. - Twenty-five benign lymph nodes ( 0/25). Comment : Peritoneal nodule biopsy consists a piece of fibroadipose tissue with fatnecrosis, inflammation, a nd reactive changes. No definitive neuroendocrine tumor is seen. The tissue has thermal artifact. To exclude neuroendocrine tumor, immunohistochemicalstudy of CD56, synaptophysin and chromogran in is performed and is negative, excludingneuroendocrine tumor. AE1/AE3 has some nonspecific stain. CONTINUED ON NEXT PAGE RUN DATE: 10/21/21 [facility] PAGE 2 RUN TIME: 1619 Specimen Inquiry RUN USER: INTERFACE SPEC #: [id number] PATIENT: SALLY MILTON #[id number] (Continued) -- GROSS DESCRIPTION A. Spec imen is received in fresh labeled peritoneal nodule for frozen section. Thespecimen consists a piece of pink brown soft tissue, 0.7 x 0.6 x 0.2 cm. Attachedperforation is performed as ATP1. The speci men is entirely submitted in AFS1. B. The specimen received in formalin labeled, "right colon" and c onsists of a right colonresection. Both the proximal and distal margins are stapled shut. The segmen t of terminalileum measures 3.8 cm in length and averages from 1.8 up to 2.3 cm in overall maximumdia meter. The ascending colon measures 16.5 x 5.5 x 4.5 cm. The appendix is notidentified. The serosa is pink-jacobo and intact revealing slight right jacobo attachedadhesions within the fat subjacent to the cec um. The specimen is opened along the anterioraspect to reveal pink-jacobo edematous mucosa within the terminal ileum and ascending colon. A discrete mass -polypoid areas are grossly not identified. The cecum is slightlyedematous and measures up to 3.5 cm in overall maximum dimension. The attached fat issectioned to reveal multiple irregular pink-jacobo lymph nodes ranging in size from 0.2 up to1.2 cm in greatest dimension. Inside Sales Coordinator section is submitted. Summary of sections: B1: Proximal miguel n submitted tangential B2: Distal margin submitted tangentialB3: Inside Sales Coordinator sectioning of the mucosa at the area of the terminal ileumB4-B7: Inside Sales Coordinator perpendicular cross sections of the cecum at the area of the possible appendicular openingB8-B9: Inside Sales Coordinator sectioning of the mucosa at the area of the ascending colon submitted from proximal to jiawkzV98: Inside Sales Coordinator se ctioning of the fibromembranous adhesions situated within the fat subjacent to the trwdzQ76: S titched radial vascular margin submitted udjqfpbdamH51: 5 possible lymph mcjitP43: 5 possible lymph n odesB14: 5 possible lymph dwbkzL09: 5 possible lymph itrllP49: 5 possible lymph nodes KKTechnical comp onent performed at [facility],[id number] , [place] [address] Immunohistochemistry: This t est was developed and its performance characteristicsdetermined by this laboratory. It has not been approved nor does it need approval by [place] FDA. Appropriate positive and negative controls are review ed and judged to beacceptable. This laboratory is certified under the Clinical Laboratory Improvem entAmendments (CLIA-88) as qualified to perform high complexity clinical laboratory testing. CONTINUED ON NEXT PAGE RUN DATE: 10/21/21 [facility] PAGE 3 RUN TIME: 1619 Specimen Inquiry RUN USER: INTERFACE SPEC #: [id number] PATIENT: SALLY MILTON #[id number] (Continued) -- INTRAOPERATIVE CONSULTATI ON ATP1-AFS1: PERITONEAL NODULE, BIOPSY: - Fibrous tissue with focal increase in cellularity and thermal artifact, defer to permanent sections. - Reported to Dr. Kulkarni at 9:16 a.m. October 18, [address] Dexter (starting at 8:56 am). MICROSCOPIC DESCRIPTION A and B. The diagnoses are based on micro scopic examination. CLINICAL INFORMATION NEUROENDOCRINE OF APPENDIX Signed GueritaBisong 0 10/21/21 1618 END OF REPORT BASIC METABOLIC [id number] 06:06:00 Test Item Value Reference Range Interpretation Comments SODIUM (test code = NA) 142 mEq/L 135-145 N POTASSIUM (test code = K) 3.8 mEq/L 3.5-5.0 N CHLORIDE (test code = CL) 106 mEq/L 100-115 N CARBON DIOXIDE (test code = CO2) 28 mEq/L 22-31 N ANION GAP (test code = GAP) 11.40 10-20 N GLUCOSE (test code = GLU) 103 mg/dL 65-110 N BLOOD UREA NITROGEN (test code = 6 mg/dL 7-18 L BUN) CREATININE (test code = CREAT) 0.6 mg/dL 0.5-1.0 N CALCIUM (test code = CA) 7.9 mg/dL 8.4-10.2 L GLOMERULAR FILTRATION RATE (test 105 ml/min >60 N code = GFR) CBC W/AUTO [id number] 05:50:00 Test Item Value Reference Range Interpretation Comments WHITE BLOOD CELL (test code = WBC) 7.7 K/mm3 6.5-12.3 N RED BLOOD CELL (test code = RBC) 3.09 M/mm3 3.51-4.69 L HEMOGLOBIN (test code = HGB) 10.4 g/dL 10.1-13.8 N HEMATOCRIT (test code = HCT) 32.5 % 32.5-41.8 N MEAN CELL VOLUME (test code = MCV) 105.2 fL 84.6-96.6 H MEAN CELL HGB (test code = MCH) 33.7 pg 27.3-33.9 N MEAN CELL HGB CONCETRATION (test 32.0 gm/dL 32.0-34.2 N code = MCHC) RED CELL DISTRIBUTION WIDTH (test 12.5 % 12.2-16.3 N code = RDW) PLATELET COUNT (test code = PLT) 173 K/mm3 134-363 N MEAN PLATELET VOLUME (test code = 11.7 fL 9.2-12.7 N MPV) NEUTROPHIL % (test code = NT%) 71.8 % 57.9-77.3 N LYMPHOCYTE % (test code = LY%) 17.8 % 14.5-29.7 N MONOCYTE % (test code = MO%) 6.7 % 3.6-10.2 N EOSINOPHIL % (test code = EO%) 3.2 % 0.0-3.0 H BASOPHIL % (test code = BA%) 0.1 % 0.1-0.9 N NEUTROPHIL # (test code = NT#) 5.6 K/mm3 LYMPHOCYTE # (test code = LY#) 1.4 K/mm3 MONOCYTE # (test code = MO#) 0.5 K/mm3 EOSINOPHIL # (test code = EO#) 0.25 K/mm3 BASOPHIL # (test code = BA#) 0.0 K/mm3 RBC MORPHOLOGY REQUIRED (test code NORMAL NORMAL = RBCM) PLATELET MORPHOLOGY REQUIRED (test NORMAL NORMAL code = PLTMR) BASIC METABOLIC [id number] 05:30:00 Test Item Value Reference Range Interpretation Comments SODIUM (test code = NA) 137 mEq/L 135-145 N POTASSIUM (test code = K) 3.8 mEq/L 3.5-5.0 N CHLORIDE (test code = CL) 103 mEq/L 100-115 N CARBON DIOXIDE (test code = CO2) 27 mEq/L 22-31 N ANION GAP (test code = GAP) 10.90 10-20 N GLUCOSE (test code = GLU) 98 mg/dL 65-110 N BLOOD UREA NITROGEN (test code = 5 mg/dL 7-18 L BUN) GLOMERULAR FILTRATION RATE (test 105 ml/min >60 N code = GFR) CREATININE (test code = CREAT) 0.6 mg/dL 0.5-1.0 N CALCIUM (test code = CA) 7.6 mg/dL 8.4-10.2 L CBC W/AUTO [id number] 05:18:00 Test Item Value Reference Range Interpretation Comments WHITE BLOOD CELL (test code = WBC) 7.8 K/mm3 6.5-12.3 N RED BLOOD CELL (test code = RBC) 3.04 M/mm3 3.51-4.69 L HEMOGLOBIN (test code = HGB) 10.4 g/dL 10.1-13.8 N HEMATOCRIT (test code = HCT) 32.3 % 32.5-41.8 L MEAN CELL VOLUME (test code = MCV) 106.3 fL 84.6-96.6 H MEAN CELL HGB (test code = MCH) 34.2 pg 27.3-33.9 H MEAN CELL HGB CONCETRATION (test 32.2 gm/dL 32.0-34.2 N code = MCHC) RED CELL DISTRIBUTION WIDTH (test 12.7 % 12.2-16.3 N code = RDW) PLATELET COUNT (test code = PLT) 168 K/mm3 134-363 N MEAN PLATELET VOLUME (test code = 11.4 fL 9.2-12.7 N MPV) NEUTROPHIL % (test code = NT%) 71.1 % 57.9-77.3 N LYMPHOCYTE % (test code = LY%) 19.2 % 14.5-29.7 N MONOCYTE % (test code = MO%) 5.6 % 3.6-10.2 N EOSINOPHIL % (test code = EO%) 3.3 % 0.0-3.0 H BASOPHIL % (test code = BA%) 0.3 % 0.1-0.9 N NEUTROPHIL # (test code = NT#) 5.6 K/mm3 LYMPHOCYTE # (test code = LY#) 1.5 K/mm3 MONOCYTE # (test code = MO#) 0.4 K/mm3 EOSINOPHIL # (test code = EO#) 0.26 K/mm3 BASOPHIL # (test code = BA#) 0.0 K/mm3 RBC MORPHOLOGY REQUIRED (test code NORMAL NORMAL = RBCM) PLATELET MORPHOLOGY REQUIRED (test NORMAL NORMAL code = PLTMR) BASIC METABOLIC [id number] 05:12:00 Test Item Value Reference Range Interpretation Comments SODIUM (test code = NA) 139 mEq/L 135-145 N POTASSIUM (test code = K) 4.2 mEq/L 3.5-5.0 N CHLORIDE (test code = CL) 104 mEq/L 100-115 N CARBON DIOXIDE (test code = CO2) 27 mEq/L 22-31 N ANION GAP (test code = GAP) 12.30 10-20 N GLUCOSE (test code = GLU) 107 mg/dL 65-110 N BLOOD UREA NITROGEN (test code = 9 mg/dL 7-18 N BUN) GLOMERULAR FILTRATION RATE (test 65 ml/min >60 N code = GFR) CREATININE (test code = CREAT) 0.9 mg/dL 0.5-1.0 N CALCIUM (test code = CA) 7.8 mg/dL 8.4-10.2 L CBC W/AUTO [id number] 04:52:00 Test Item Value Reference Range Interpretation Comments WHITE BLOOD CELL (test code = WBC) 10.0 K/mm3 6.5-12.3 N RED BLOOD CELL (test code = RBC) 3.40 M/mm3 3.51-4.69 L HEMOGLOBIN (test code = HGB) 11.7 g/dL 10.1-13.8 N HEMATOCRIT (test code = HCT) 35.3 % 32.5-41.8 N MEAN CELL VOLUME (test code = MCV) 103.8 fL 84.6-96.6 H MEAN CELL HGB (test code = MCH) 34.4 pg 27.3-33.9 H MEAN CELL HGB CONCETRATION (test 33.1 gm/dL 32.0-34.2 N code = MCHC) RED CELL DISTRIBUTION WIDTH (test 12.8 % 12.2-16.3 N code = RDW) PLATELET COUNT (test code = PLT) 211 K/mm3 134-363 N MEAN PLATELET VOLUME (test code = 11.2 fL 9.2-12.7 N MPV) NEUTROPHIL % (test code = NT%) 76.2 % 57.9-77.3 N LYMPHOCYTE % (test code = LY%) 16.4 % 14.5-29.7 N MONOCYTE % (test code = MO%) 6.3 % 3.6-10.2 N EOSINOPHIL % (test code = EO%) 0.4 % 0.0-3.0 N BASOPHIL % (test code = BA%) 0.4 % 0.1-0.9 N NEUTROPHIL # (test code = NT#) 7.6 K/mm3 LYMPHOCYTE # (test code = LY#) 1.6 K/mm3 MONOCYTE # (test code = MO#) 0.6 K/mm3 EOSINOPHIL # (test code = EO#) 0.04 K/mm3 BASOPHIL # (test code = BA#) 0.0 K/mm3 RBC MORPHOLOGY REQUIRED (test code NORMAL NORMAL = RBCM) PLATELET MORPHOLOGY REQUIRED (test NORMAL NORMAL code = PLTMR) COVID 19 Asymptomatic IH [id number] 18:59:00 Test Item Value Reference Range Interpretation Comments COVID 19 NEGATIVE NEGATIVE This test has b een Asymptomatic IH AG authorize d only for the (test code = detection ofpro teins from COVNONPUIAG) SARS-CoV-2, not for any other viruses orpathogens. Ne gative results should be treated as presumptive andconfirmed wi th a molecular assay , if necessary for patientmanageme nt. Negative result s do not rule out COVID- 19 andshould not b e used as the sole basis for treatment orpat ient management deci sions, including infec tion controldecision s. Negative result s should be considered i n thecontext of a patient's recent exposure s, history and thepresence of clinical signs and symptoms consis tent withCOVID-19. T his test has not been FD A cleared or approved; th e test hasbeen authori zed by FDA under an Emerge ncy Use Authorization(E UA) for use by rachel barry certified under the CLIA thatmeet the re quirements to perform mode rate, high or waivedcomple xity tests. This pa t is authorized for use at thePoint of Car e (POC), i.e., in patien t care settingsoperati ng under a CLIA Certificat e of Waiver, Certifi angel ofCompliance, o r Certificate of Accreditation. This test is only authori zed for the duration of thedeclaration that circumstances e xist justifying theauthorizatio n of emergency use o f in vitro diagnostic test sfor detection and/o r diagnosis of CO VID-19 under Bqhbltk57 4(b)(1) of the Act, 21 U.S .C. 360bbb-3(b)(1), unless theauthorizatio n is terminated or r evoked sooner. COMPREHENSIVE METABOLIC [id number] 15:49:00 Test Item Value Reference Range Interpretation Comments SODIUM (test code = NA) 141 mEq/L 135-145 N POTASSIUM (test code = K) 4.1 mEq/L 3.5-5.0 N CHLORIDE (test code = CL) 104 mEq/L 100-115 N CARBON DIOXIDE (test code = CO2) 30 mEq/L 22-31 N ANION GAP (test code = GAP) 10.90 10-20 N GLUCOSE (test code = GLU) 92 mg/dL 65-110 N BLOOD UREA NITROGEN (test code = 13 mg/dL 7-18 N BUN) GLOMERULAR FILTRATION RATE (test 88 ml/min >60 N code = GFR) CREATININE (test code = CREAT) 0.7 mg/dL 0.5-1.0 N TOTAL PROTEIN (test code = PROT) 6.8 gm/dL 6.3-8.2 N ALBUMIN (test code = ALB) 3.9 gm/dL 3.4-4.8 N CALCIUM (test code = CA) 8.9 mg/dL 8.4-10.2 N BILIRUBIN TOTAL (test code = 0.3 mg/dL 0.2-1.0 N BILT) SGOT/AST (test code = AST) 18 units/L 15-37 N SGPT/ALT (test code = ALT) 21 units/L 12-78 N ALKALINE PHOSPHATASE TOTAL (test 121 units/L 46-116 H code = ALKP) HCG SERUM [id number] 15:39:00 Test Item Value Reference Range Interpretation Comments HCG SERUM QUAL (test code = HCGQL) NEGATIVE PROTHROMBIN [id number] 15:27:00 Test Item Value Reference Range Interpretation Comments PROTHROMBIN TIME PATIENT (test code 10.3 secs 10.1-12.3 N = PTP) THROMBOPLASTIN TIME [id number] 15:27:00 Test Item Value Reference Range Interpretation Comments THROMBOPLASTIN TIME PARTIAL (test 29.9 secs 22-38 N code = PTT) CBC W/AUTO [id number] 15:24:00 Test Item Value Reference Range Interpretation Comments WHITE BLOOD CELL (test code = WBC) 7.1 K/mm3 6.5-12.3 N RED BLOOD CELL (test code = RBC) 3.72 M/mm3 3.51-4.69 N HEMOGLOBIN (test code = HGB) 12.5 g/dL 10.1-13.8 N HEMATOCRIT (test code = HCT) 38.2 % 32.5-41.8 N MEAN CELL VOLUME (test code = MCV) 102.7 fL 84.6-96.6 H MEAN CELL HGB (test code = MCH) 33.6 pg 27.3-33.9 N MEAN CELL HGB CONCETRATION (test 32.7 gm/dL 32.0-34.2 N code = MCHC) RED CELL DISTRIBUTION WIDTH (test 12.5 % 12.2-16.3 N code = RDW) PLATELET COUNT (test code = PLT) 210 K/mm3 134-363 N MEAN PLATELET VOLUME (test code = 11.5 fL 9.2-12.7 N MPV) NEUTROPHIL % (test code = NT%) 49.0 % 57.9-77.3 L LYMPHOCYTE % (test code = LY%) 40.5 % 14.5-29.7 H MONOCYTE % (test code = MO%) 8.0 % 3.6-10.2 N EOSINOPHIL % (test code = EO%) 1.8 % 0.0-3.0 N BASOPHIL % (test code = BA%) 0.4 % 0.1-0.9 N NEUTROPHIL # (test code = NT#) 3.5 K/mm3 LYMPHOCYTE # (test code = LY#) 2.9 K/mm3 MONOCYTE # (test code = MO#) 0.6 K/mm3 EOSINOPHIL # (test code = EO#) 0.13 K/mm3 BASOPHIL # (test code = BA#) 0.0 K/mm3 RBC MORPHOLOGY REQUIRED (test code NORMAL NORMAL = RBCM) PLATELET MORPHOLOGY REQUIRED (test NORMAL NORMAL code = PLTMR) POCT GLUCOSE (AUTOMATED)2021-09-06 17:48:10 Test Item Value Reference Range Interpretation Comments POCT GLU (test code = 3931211821) 111 mg/dL 70-110 H Lab Interpretation (test code = Abnormal 60542-3) [facility] GLUCOSE (AUTOMATED)2021-09-06 17:48:10 Test Item Value Reference Range Interpretation Comments POCT GLU (test code = 8637707924) 111 mg/dL 70-110 H Lab Interpretation (test code = Abnormal 25318-9) [facility] GLUCOSE (AUTOMATED)2021-09-06 17:48:10 Test Item Value Reference Range Interpretation Comments POCT GLU (test code = 9662222909) 111 mg/dL 70-110 H Lab Interpretation (test code = Abnormal 40703-8) [facility] WITH [id number] 12:34:27 Test Item Value Reference Range Interpretation Comments WBC (test code = See_Comment H [Automated 6690-2) message] The system which generated this result transmit alejandra reference range : 4.30 - 11.10 10*3/?L. The reference range was not used to interpret this result as normal/abnormal . RBC (test code = See_Comment L [Automated 789-8) message] The system which generated this result transmit alejandra reference range : 3.93 - 5.25 10*6/?L. The reference range was not used to interpret this result as normal/abnormal . HGB (test code = 10.2 g/dL 11.6-15.0 L 718-7) HCT (test code = 31.2 % 35.7-45.2 L 4544-3) MCV (test code = 106.5 fL 80.6-95.5 H 787-2) MCH (test code = 34.8 pg 25.9-32.8 H 785-6) MCHC (test code = 32.7 g/dL 31.6-35.1 786-4) RDW-SD (test code = 51.0 fL 39.0-49.9 H 79313-4) RDW-CV (test code = 13.0 % 12.0-15.5 788-0) PLT (test code = See_Comment L [Automated 777-3) message] The system which generated this result transmit alejandra reference range : 166 - 358 10*3/ ?L. The reference range was not u sed to interpret th is result as normal/abnormal . MPV (test code = 11.8 fL 9.5-12.9 69534-3) NRBC/100 WBC (test See_Comment [Automat ed code = [id number]) message] The system which generated this result transmit alejandra reference range : 0.0 - 10.0 /100 WBCs. The reference range was not used to interpret this result as normal/abnormal . NRBC x10^3 (test code <0.01 See_Comment [Auto mated = [id number]) message] The system which generated this result transmit alejandra reference range : 10*3/?L. The reference range was not used to interpret this result as normal/abnormal . GRAN MAT (NEUT) % 86.9 % (test code = 770-8) IMM GRAN % (test code 1.60 % = [id number]) LYMPH % (test code = 7.9 % 736-9) MONO % (test code = 3.1 % 5905-5) EOS % (test code = 0.2 % 713-8) BASO % (test code = 0.3 % 706-2) GRAN MAT x10^3(ANC) 10.44 10*3/uL 1.88-7.09 H (test code = [id number]) IMM GRAN x10^3 (test 0.19 10*3/uL 0.00-0.06 H code = [id number]) LYMPH x10^3 (test code 0.95 10*3/uL 1.32-3.29 L = 731-0) MONO x10^3 (test code 0.37 10*3/uL 0.33-0.92 = 742-7) EOS x10^3 (test code = <0.03 0.03-0.39 L 711-2) BASO x10^3 (test code 0.03 10*3/uL 0.01-0.07 = 704-7) Lab Interpretation Abnormal (test code = 10270-6) [facility] WITH [id number] 12:34:27 Test Item Value Reference Range Interpretation Comments WBC (test code = See_Comment H [Automated 6690-2) message] The system which generated this result transmit alejandra reference range : 4.30 - 11.10 10*3/?L. The reference range was not used to interpret this result as normal/abnormal . RBC (test code = See_Comment L [Automated 789-8) message] The system which generated this result transmit alejandra reference range : 3.93 - 5.25 10*6/?L. The reference range was not used to interpret this result as normal/abnormal . HGB (test code = 10.2 g/dL 11.6-15.0 L 718-7) HCT (test code = 31.2 % 35.7-45.2 L 4544-3) MCV (test code = 106.5 fL 80.6-95.5 H 787-2) MCH (test code = 34.8 pg 25.9-32.8 H 785-6) MCHC (test code = 32.7 g/dL 31.6-35.1 786-4) RDW-SD (test code = 51.0 fL 39.0-49.9 H 03906-5) RDW-CV (test code = 13.0 % 12.0-15.5 788-0) PLT (test code = See_Comment L [Automated 777-3) message] The system which generated this result transmit alejandra reference range : 166 - 358 10*3/ ?L. The reference range was not u sed to interpret th is result as normal/abnormal . MPV (test code = 11.8 fL 9.5-12.9 67551-7) NRBC/100 WBC (test See_Comment [Automat ed code = 1559594260) message] The system which generated this result transmit alejandra reference range : 0.0 - 10.0 /100 WBCs. The reference range was not used to interpret this result as normal/abnormal . NRBC x10^3 (test code <0.01 See_Comment [Auto mated = 6146397136) message] The system which generated this result transmit alejandra reference range : 10*3/?L. The reference range was not used to interpret this result as normal/abnormal . GRAN MAT (NEUT) % 86.9 % (test code = 770-8) IMM GRAN % (test code 1.60 % = 3816266256) LYMPH % (test code = 7.9 % 736-9) MONO % (test code = 3.1 % 5905-5) EOS % (test code = 0.2 % 713-8) BASO % (test code = 0.3 % 706-2) GRAN MAT x10^3(ANC) 10.44 10*3/uL 1.88-7.09 H (test code = 3709846811) IMM GRAN x10^3 (test 0.19 10*3/uL 0.00-0.06 H code = 3510518262) LYMPH x10^3 (test code 0.95 10*3/uL 1.32-3.29 L = 731-0) MONO x10^3 (test code 0.37 10*3/uL 0.33-0.92 = 742-7) EOS x10^3 (test code = <0.03 0.03-0.39 L 711-2) BASO x10^3 (test code 0.03 10*3/uL 0.01-0.07 = 704-7) Lab Interpretation Abnormal (test code = 79621-1) [facility] WITH [id number] 12:34:27 Test Item Value Reference Range Interpretation Comments WBC (test code = See_Comment H [Automated 4290-2) message] The system which generated this result transmit alejandra reference range : 4.30 - 11.10 10*3/?L. The reference range was not used to interpret this result as normal/abnormal . RBC (test code = See_Comment L [Automated 769-8) message] The system which generated this result transmit alejandra reference range : 3.93 - 5.25 10*6/?L. The reference range was not used to interpret this result as normal/abnormal . HGB (test code = 10.2 g/dL 11.6-15.0 L 718-7) HCT (test code = 31.2 % 35.7-45.2 L 4544-3) MCV (test code = 106.5 fL 80.6-95.5 H 787-2) MCH (test code = 34.8 pg 25.9-32.8 H 785-6) MCHC (test code = 32.7 g/dL 31.6-35.1 786-4) RDW-SD (test code = 51.0 fL 39.0-49.9 H 95985-3) RDW-CV (test code = 13.0 % 12.0-15.5 788-0) PLT (test code = See_Comment L [Automated 777-3) message] The system which generated this result transmit alejandra reference range : 166 - 358 10*3/ ?L. The reference range was not u sed to interpret th is result as normal/abnormal . MPV (test code = 11.8 fL 9.5-12.9 71199-2) NRBC/100 WBC (test See_Comment [Automat ed code = 2296896361) message] The system which generated this result transmit alejandra reference range : 0.0 - 10.0 /100 WBCs. The reference range was not used to interpret this result as normal/abnormal . NRBC x10^3 (test code <0.01 See_Comment [Auto mated = 4448086806) message] The system which generated this result transmit alejandra reference range : 10*3/?L. The reference range was not used to interpret this result as normal/abnormal . GRAN MAT (NEUT) % 86.9 % (test code = 770-8) IMM GRAN % (test code 1.60 % = 9427990768) LYMPH % (test code = 7.9 % 736-9) MONO % (test code = 3.1 % 5905-5) EOS % (test code = 0.2 % 713-8) BASO % (test code = 0.3 % 706-2) GRAN MAT x10^3(ANC) 10.44 10*3/uL 1.88-7.09 H (test code = 5578245645) IMM GRAN x10^3 (test 0.19 10*3/uL 0.00-0.06 H code = 6177131837) LYMPH x10^3 (test code 0.95 10*3/uL 1.32-3.29 L = 731-0) MONO x10^3 (test code 0.37 10*3/uL 0.33-0.92 = 742-7) EOS x10^3 (test code = <0.03 0.03-0.39 L 711-2) BASO x10^3 (test code 0.03 10*3/uL 0.01-0.07 = 704-7) Lab Interpretation Abnormal (test code = 10745-4) [facility] METABOLIC PANEL (NA, K, CL, CO2, GLUCOSE, BUN, CREATININE, CA)2021-09-06 11:57:18 Test Item Value Reference Range Interpretation Comments NA (test code = 135 mmol/L 135-145 8927037358) K (test code = 3.4 mmol/L 3.5-5.0 L 5508504035) CL (test code = 105 mmol/L 98-108 2134090250) CO2 TOTAL (test code = 26 mmol/L 23-31 2928335081) AGAP (test code = 2-16 4009909941) BUN (test code = 12 mg/dL 7-23 7605923223) GLUCOSE (test code = 101 mg/dL 70-110 9362000829) CREATININE (test code = 0.68 mg/dL 0.50-1.04 1036026854) CALCIUM (test code = 8.3 mg/dL 8.6-10.6 L 7683447277) eGFR (test code = mL/min/1.73m2 7491838630) NEAL (test code = NEAL) Association of Glomerular Filtration Rate (GFR) and Staging of Kidney Disease* + --+ --+ ------+| GFR (mL/min/1.73 m2) ?| With Kidney Damage ?| ?Without Kidney Damage+ --------+ --------+ +| ?>90 ?| ?Stage one ?| ? Normal ?+ ---+ ---+ -------+| ?60-89 ?| ?Stage two ?| ? Decreased GFR ? + --+ --+ ------+| ?30-59 ?| ?Stage three ?| ? Stage three ? + --+ --+ ------+| ?15-29 ?| ?Stage four ? | ? Stage four ?+ ---+ ---+ -------+| ?<15 (or dialysis) ? ?| ?Stage five ? | ? Stage five ?+ ---+ ---+ -------+ *Each stage assumes the associated GFR level has been in effect for at least three months. ?Stages 1 to 5, with or without kidney disease, indicate chronic kidney disease. Notes: Determination of stages one and two (with eGFR >59mL/min/1.73 m2) requires estimation of kidney damage for at least three months as defined by structural or functional abnormalities of the kidney, manifested by either:Pathological abnormalities or Markers of kidney damage (including abnormalities in the composition of the blood or urine or abnormalities in imaging tests). Lab Interpretation Abnormal (test code = 52096-6) [facility] METABOLIC PANEL (NA, K, CL, CO2, GLUCOSE, BUN, CREATININE, CA)2021-09-06 11:57:18 Test Item Value Reference Range Interpretation Comments NA (test code = 135 mmol/L 135-145 2225520434) K (test code = 3.4 mmol/L 3.5-5.0 L 1133067389) CL (test code = 105 mmol/L 98-108 4182405236) CO2 TOTAL (test code = 26 mmol/L 23-31 6160852461) AGAP (test code = 2-16 4628188826) BUN (test code = 12 mg/dL 7-23 1625638923) GLUCOSE (test code = 101 mg/dL 70-110 5534778174) CREATININE (test code = 0.68 mg/dL 0.50-1.04 9869402790) CALCIUM (test code = 8.3 mg/dL 8.6-10.6 L 9211725990) eGFR (test code = mL/min/1.73m2 3158896716) NEAL (test code = NEAL) Association of Glomerular Filtration Rate (GFR) and Staging of Kidney Disease* + --+ --+ ------+| GFR (mL/min/1.73 m2) ?| With Kidney Damage ?| ?Without Kidney Damage+ --------+ --------+ +| ?>90 ?| ?Stage one ?| ? Normal ?+ ---+ ---+ -------+| ?60-89 ?| ?Stage two ?| ? Decreased GFR ? + --+ --+ ------+| ?30-59 ?| ?Stage three ?| ? Stage three ? + --+ --+ ------+| ?15-29 ?| ?Stage four ? | ? Stage four ?+ ---+ ---+ -------+| ?<15 (or dialysis) ? ?| ?Stage five ? | ? Stage five ?+ ---+ ---+ -------+ *Each stage assumes the associated GFR level has been in effect for at least three months. ?Stages 1 to 5, with or without kidney disease, indicate chronic kidney disease. Notes: Determination of stages one and two (with eGFR >59mL/min/1.73 m2) requires estimation of kidney damage for at least three months as defined by structural or functional abnormalities of the kidney, manifested by either:Pathological abnormalities or Markers of kidney damage (including abnormalities in the composition of the blood or urine or abnormalities in imaging tests). Lab Interpretation Abnormal (test code = 91069-8) [facility] METABOLIC PANEL (NA, K, CL, CO2, GLUCOSE, BUN, CREATININE, CA)2021-09-06 11:57:18 Test Item Value Reference Range Interpretation Comments NA (test code = 135 mmol/L 135-145 4120247472) K (test code = 3.4 mmol/L 3.5-5.0 L 6120195348) CL (test code = 105 mmol/L 98-108 2488215502) CO2 TOTAL (test code = 26 mmol/L 23-31 6366979755) AGAP (test code = 2-16 5083329550) BUN (test code = 12 mg/dL 7-23 8048466058) GLUCOSE (test code = 101 mg/dL 70-110 4285110026) CREATININE (test code = 0.68 mg/dL 0.50-1.04 2509860408) CALCIUM (test code = 8.3 mg/dL 8.6-10.6 L 5152255982) eGFR (test code = mL/min/1.73m2 4393952302) NEAL (test code = NEAL) Association of Glomerular Filtration Rate (GFR) and Staging of Kidney Disease* + --+ --+ ------+| GFR (mL/min/1.73 m2) ?| With Kidney Damage ?| ?Without Kidney Damage+ --------+ --------+ +| ?>90 ?| ?Stage one ?| ? Normal ?+ ---+ ---+ -------+| ?60-89 ?| ?Stage two ?| ? Decreased GFR ? + --+ --+ ------+| ?30-59 ?| ?Stage three ?| ? Stage three ? + --+ --+ ------+| ?15-29 ?| ?Stage four ? | ? Stage four ?+ ---+ ---+ -------+| ?<15 (or dialysis) ? ?| ?Stage five ? | ? Stage five ?+ ---+ ---+ -------+ *Each stage assumes the associated GFR level has been in effect for at least three months. ?Stages 1 to 5, with or without kidney disease, indicate chronic kidney disease. Notes: Determination of stages one and two (with eGFR >59mL/min/1.73 m2) requires estimation of kidney damage for at least three months as defined by structural or functional abnormalities of the kidney, manifested by either:Pathological abnormalities or Markers of kidney damage (including abnormalities in the composition of the blood or urine or abnormalities in imaging tests). Lab Interpretation Abnormal (test code = 24063-5) [facility] GLUCOSE (AUTOMATED)2021-09-06 06:20:39 Test Item Value Reference Range Interpretation Comments POCT GLU (test code = 2183312502) 140 mg/dL 70-110 H Lab Interpretation (test code = Abnormal 61340-0) [facility] GLUCOSE (AUTOMATED)2021-09-06 06:20:39 Test Item Value Reference Range Interpretation Comments POCT GLU (test code = 9152282777) 140 mg/dL 70-110 H Lab Interpretation (test code = Abnormal 80675-9) [facility] GLUCOSE (AUTOMATED)2021-09-06 00:12:38 Test Item Value Reference Range Interpretation Comments POCT GLU (test code = 3601799373) 156 mg/dL 70-110 H Lab Interpretation (test code = Abnormal 58515-6) [facility] GLUCOSE (AUTOMATED)2021-09-06 00:12:38 Test Item Value Reference Range Interpretation Comments POCT GLU (test code = 6984331748) 156 mg/dL 70-110 H Lab Interpretation (test code = Abnormal 38550-2) [facility] [id number] 22:15:38 Test Item Value Reference Range Interpretation Comments VIT B12 (test code = 506 pg/mL 240-930 6245601412) NEAL (test code = NEAL) Biotin has been reported to cause a positive bias, interpret results relative to patient's use of biotin. Lab Interpretation (test Normal code = 69980-2) [facility] [id number] 22:15:38 Test Item Value Reference Range Interpretation Comments VIT B12 (test code = 506 pg/mL 240-930 0509530076) NEAL (test code = NEAL) Biotin has been reported to cause a positive bias, interpret results relative to patient's use of biotin. Lab Interpretation (test Normal code = 62138-5) [facility] [id number] 22:15:38 Test Item Value Reference Range Interpretation Comments VIT B12 (test code = 506 pg/mL 240-930 5225265099) NEAL (test code = NEAL) Biotin has been reported to cause a positive bias, interpret results relative to patient's use of biotin. Lab Interpretation (test Normal code = 30113-2) [facility]2021-12-05 18:09:03 Test Item Value Reference Range Interpretation Comments FOLATE SER (test code = 5.5 ng/mL 3.0-20.0 Biot in has been 2500271444) reported to cau se a positive bias, interpret resul ts relative to patient's use o f biotin. Lab Interpretation (test Normal code = 85686-4) [facility]2021-12-05 18:09:03 Test Item Value Reference Range Interpretation Comments FOLATE SER (test code = 5.5 ng/mL 3.0-20.0 Biot in has been 1738133228) reported to cau se a positive bias, interpret resul ts relative to patient's use o f biotin. Lab Interpretation (test Normal code = 00867-4) [facility]2021-12-05 18:09:03 Test Item Value Reference Range Interpretation Comments FOLATE SER (test code = 5.5 ng/mL 3.0-20.0 Biot in has been 8802166711) reported to cau se a positive bias, interpret resul ts relative to patient's use o f biotin. Lab Interpretation (test Normal code = 71406-6) [facility] with [id number] 15:18:16 Test Item Value Reference Range Interpretation Comments WBC (test code = See_Comment L [Automated 6690-2) message] The sy stem which generated this result transmitted reference range : 4.30 - 11.10 10*3/?L. The reference range was not used to interpret this result as normal/abnormal . RBC (test code = See_Comment L [Automated 789-8) message] The sy stem which generated this result transmitted reference range : 3.93 - 5.25 10*6/?L. The reference range was not used to interpret this result as normal/abnormal . HGB (test code = 12.2 g/dL 11.6-15.0 718-7) HCT (test code = 36.2 % 35.7-45.2 4544-3) MCV (test code = 102.8 fL 80.6-95.5 H 787-2) MCH (test code = 34.7 pg 25.9-32.8 H 785-6) MCHC (test code = 33.7 g/dL 31.6-35.1 786-4) RDW-SD (test code = 46.8 fL 39.0-49.9 84083-2) RDW-CV (test code = 12.5 % 12.0-15.5 788-0) PLT (test code = See_Comment L [Automated 777-3) message] The sy stem which generated this result transmitted reference range : 166 - 358 10*3/ ?L. The reference r lorin was not used to interpret this result as normal/abnormal . MPV (test code = 11.5 fL 9.5-12.9 96225-7) NRBC/100 WBC (test See_Comment [Automat ed code = 3700211390) message] The system which generated this result transmitted reference range : 0.0 - 10.0 /100 WBCs. The refer ence range was not u sed to interpret th is result as normal/abnormal . NRBC x10^3 (test code <0.01 See_Comment [Auto mated = 4316202155) message] The s ystem which generated this result transmitted reference range : 10*3/?L. The reference range was not used to interpret this result as normal/abnormal . SEG % (test code = 62 % 33-76 40916-8) BAND % (test code = 33 % 0-1 H 60714-4) LYMPH % (test code = 5 % 14-54 L 87700-1) ANC (test code = 2.60 10*3/uL 1.88-7.09 753-4) Lab Interpretation Abnormal (test code = 18674-2) [facility] with [id number] 15:18:16 Test Item Value Reference Range Interpretation Comments WBC (test code = See_Comment L [Automated 6690-2) message] The sy stem which generated this result transmitted reference range : 4.30 - 11.10 10*3/?L. The reference range was not used to interpret this result as normal/abnormal . RBC (test code = See_Comment L [Automated 789-8) message] The sy stem which generated this result transmitted reference range : 3.93 - 5.25 10*6/?L. The reference range was not used to interpret this result as normal/abnormal . HGB (test code = 12.2 g/dL 11.6-15.0 718-7) HCT (test code = 36.2 % 35.7-45.2 4544-3) MCV (test code = 102.8 fL 80.6-95.5 H 787-2) MCH (test code = 34.7 pg 25.9-32.8 H 785-6) MCHC (test code = 33.7 g/dL 31.6-35.1 786-4) RDW-SD (test code = 46.8 fL 39.0-49.9 70699-8) RDW-CV (test code = 12.5 % 12.0-15.5 788-0) PLT (test code = See_Comment L [Automated 777-3) message] The sy stem which generated this result transmitted reference range : 166 - 358 10*3/ ?L. The reference r lorin was not used to interpret this result as normal/abnormal . MPV (test code = 11.5 fL 9.5-12.9 88782-5) NRBC/100 WBC (test See_Comment [Automat ed code = 4067176587) message] The system which generated this result transmitted reference range : 0.0 - 10.0 /100 WBCs. The refer ence range was not u sed to interpret th is result as normal/abnormal . NRBC x10^3 (test code <0.01 See_Comment [Auto mated = 2512246674) message] The s ystem which generated this result transmitted reference range : 10*3/?L. The reference range was not used to interpret this result as normal/abnormal . SEG % (test code = 62 % 33-76 25064-9) BAND % (test code = 33 % 0-1 H 00538-0) LYMPH % (test code = 5 % 14-54 L 47719-3) ANC (test code = 2.60 10*3/uL 1.88-7.09 753-4) Lab Interpretation Abnormal (test code = 23476-3) [facility] Metabolic Panel (NA, K, CL, CO2, GLUCOSE, BUN, CREATININE, CA)2021-09-05 11:47:06 Test Item Value Reference Range Interpretation Comments NA (test code = 137 mmol/L 135-145 2143940322) K (test code = 3.4 mmol/L 3.5-5.0 L 5531364861) CL (test code = 106 mmol/L 98-108 8658882621) CO2 TOTAL (test code = 26 mmol/L 23-31 6874532608) AGAP (test code = 2-16 4007658574) BUN (test code = 7 mg/dL 7-23 4722042754) GLUCOSE (test code = 107 mg/dL 70-110 2633468502) CREATININE (test code = 0.74 mg/dL 0.50-1.04 2794894112) CALCIUM (test code = 8.8 mg/dL 8.6-10.6 7037909892) eGFR (test code = mL/min/1.73m2 6822134673) NEAL (test code = NEAL) Association of Glomerular Filtration Rate (GFR) and Staging of Kidney Disease* + --+ --+ ------+| GFR (mL/min/1.73 m2) ?| With Kidney Damage ?| ?Without Kidney Damage+ --------+ --------+ +| ?>90 ?| ?Stage one ?| ? Normal ?+ ---+ ---+ -------+| ?60-89 ?| ?Stage two ?| ? Decreased GFR ? + --+ --+ ------+| ?30-59 ?| ?Stage three ?| ? Stage three ? + --+ --+ ------+| ?15-29 ?| ?Stage four ? | ? Stage four ?+ ---+ ---+ -------+| ?<15 (or dialysis) ? ?| ?Stage five ? | ? Stage five ?+ ---+ ---+ -------+ *Each stage assumes the associated GFR level has been in effect for at least three months. ?Stages 1 to 5, with or without kidney disease, indicate chronic kidney disease. Notes: Determination of stages one and two (with eGFR >59mL/min/1.73 m2) requires estimation of kidney damage for at least three months as defined by structural or functional abnormalities of the kidney, manifested by either:Pathological abnormalities or Markers of kidney damage (including abnormalities in the composition of the blood or urine or abnormalities in imaging tests). Lab Interpretation Abnormal (test code = 93728-2) [facility] (NA, K, CL, CO2, GLUCOSE, BUN, CREATININE, CA)2021-09-05 11:47:06 Test Item Value Reference Range Interpretation Comments NA (test code = 137 mmol/L 135-145 6592485557) K (test code = 3.4 mmol/L 3.5-5.0 L 4220225915) CL (test code = 106 mmol/L 98-108 3785438480) CO2 TOTAL (test code = 26 mmol/L 23-31 5595996129) AGAP (test code = 2-16 5104904535) BUN (test code = 7 mg/dL 7-23 5186860053) GLUCOSE (test code = 107 mg/dL 70-110 0394585319) CREATININE (test code = 0.74 mg/dL 0.50-1.04 7544695375) CALCIUM (test code = 8.8 mg/dL 8.6-10.6 7587674541) eGFR (test code = mL/min/1.73m2 1865758809) NEAL (test code = NEAL) Association of Glomerular Filtration Rate (GFR) and Staging of Kidney Disease* + --+ --+ ------+| GFR (mL/min/1.73 m2) ?| With Kidney Damage ?| ?Without Kidney Damage+ --------+ --------+ +| ?>90 ?| ?Stage one ?| ? Normal ?+ ---+ ---+ -------+| ?60-89 ?| ?Stage two ?| ? Decreased GFR ? + --+ --+ ------+| ?30-59 ?| ?Stage three ?| ? Stage three ? + --+ --+ ------+| ?15-29 ?| ?Stage four ? | ? Stage four ?+ ---+ ---+ -------+| ?<15 (or dialysis) ? ?| ?Stage five ? | ? Stage five ?+ ---+ ---+ -------+ *Each stage assumes the associated GFR level has been in effect for at least three months. ?Stages 1 to 5, with or without kidney disease, indicate chronic kidney disease. Notes: Determination of stages one and two (with eGFR >59mL/min/1.73 m2) requires estimation of kidney damage for at least three months as defined by structural or functional abnormalities of the kidney, manifested by either:Pathological abnormalities or Markers of kidney damage (including abnormalities in the composition of the blood or urine or abnormalities in imaging tests). Lab Interpretation Abnormal (test code = 18568-2) [facility] GLUCOSE (AUTOMATED)2021-09-05 11:45:45 Test Item Value Reference Range Interpretation Comments POCT GLU (test code = 3168151703) 114 mg/dL 70-110 H Lab Interpretation (test code = Abnormal 76853-3) [facility] GLUCOSE (AUTOMATED)2021-09-05 11:45:45 Test Item Value Reference Range Interpretation Comments POCT GLU (test code = 1007398486) 114 mg/dL 70-110 H Lab Interpretation (test code = Abnormal 97085-2) [facility] GLUCOSE (AUTOMATED)2021-09-05 06:30:29 Test Item Value Reference Range Interpretation Comments POCT GLU (test code = 1918884708) 116 mg/dL 70-110 H Lab Interpretation (test code = Abnormal 33868-1) [facility] 06:30:29 Test Item Value Reference Range Interpretation Comments POCT GLU (test code = 1552000653) 116 mg/dL 70-110 H Lab Interpretation (test code = Abnormal 59297-0) [id number]17:06 Test Item Value Reference Range Interpretation Comments MAGNESIUM (test code = 6290215146) 1.6 mg/dL 1.7-2.4 L Lab Interpretation (test code = Abnormal 77651-0) [facility] [id number] 06:17:06 Test Item Value Reference Range Interpretation Comments MAGNESIUM (test code = 9209607926) 1.6 mg/dL 1.7-2.4 L Lab Interpretation (test code = Abnormal 72564-8) [facility] [id number] 06:17:06 Test Item Value Reference Range Interpretation Comments MAGNESIUM (test code = 9625949769) 1.6 mg/dL 1.7-2.4 L Lab Interpretation (test code = Abnormal 08733-0) [facility] 06:01:43 Test Item Value Reference Range Interpretation Comments HGB A1C (test code = 5.3 % 4.0-5.7 4548-4) NEAL (test code = NEAL) Reference RangesNormal: <5.7%Prediabetes: 5.7 - 6.4%Diabetes: > 6.5% Lab Interpretation (test Normal code = 03428-4) [facility] 06:01:43 Test Item Value Reference Range Interpretation Comments HGB A1C (test code = 5.3 % 4.0-5.7 4548-4) NEAL (test code = NEAL) Reference RangesNormal: <5.7%Prediabetes: 5.7 - 6.4%Diabetes: > 6.5% Lab Interpretation (test Normal code = 82744-2) [facility] 06:01:43 Test Item Value Reference Range Interpretation Comments HGB A1C (test code = 5.3 % 4.0-5.7 4548-4) NEAL (test code = NEAL) Reference RangesNormal: <5.7%Prediabetes: 5.7 - 6.4%Diabetes: > 6.5% Lab Interpretation (test Normal code = 20530-4) [facility] [id number] 02:45:18 Test Item Value Reference Range Interpretation Comments NA (test code = 135 mmol/L 135-145 7424096092) K (test code = 3.9 mmol/L 3.5-5.0 4085821147) CL (test code = 104 mmol/L 98-108 4663811319) CO2 TOTAL (test code = 23 mmol/L 23-31 3099798362) AGAP (test code = 2-16 8530770808) BUN (test code = 9 mg/dL 7-23 9341160920) GLUCOSE (test code = 135 mg/dL 70-110 H 8586103618) CREATININE (test code = 0.62 mg/dL 0.50-1.04 9166371961) TOTAL BILI (test code = 0.9 mg/dL 0.1-1.5 4446931134) CALCIUM (test code = 9.9 mg/dL 8.6-10.6 7283601273) T PROTEIN (test code = 7.4 g/dL 6.3-8.2 3118343555) ALBUMIN (test code = 4.5 g/dL 3.5-5.0 0862623526) ALK PHOS (test code = 97 U/L 34-122 7455530071) ALTv (test code = 19 U/L 5-35 1742-6) AST(SGOT) (test code = 31 U/L 13-40 0450617618) eGFR (test code = mL/min/1.73m2 2228050992) NEAL (test code = NEAL) Association of Glomerular Filtration Rate (GFR) and Staging of Kidney Disease* + --+ --+ ------+| GFR (mL/min/1.73 m2) ?| With Kidney Damage ?| ?Without Kidney Damage+ --------+ --------+ +| ?>90 ?| ?Stage one ?| ? Normal ?+ ---+ ---+ -------+| ?60-89 ?| ?Stage two ?| ? Decreased GFR ? + --+ --+ ------+| ?30-59 ?| ?Stage three ?| ? Stage three ? + --+ --+ ------+| ?15-29 ?| ?Stage four ? | ? Stage four ?+ ---+ ---+ -------+| ?<15 (or dialysis) ? ?| ?Stage five ? | ? Stage five ?+ ---+ ---+ -------+ *Each stage assumes the associated GFR level has been in effect for at least three months. ?Stages 1 to 5, with or without kidney disease, indicate chronic kidney disease. Notes: Determination of stages one and two (with eGFR >59mL/min/1.73 m2) requires estimation of kidney damage for at least three months as defined by structural or functional abnormalities of the kidney, manifested by either:Pathological abnormalities or Markers of kidney damage (including abnormalities in the composition of the blood or urine or abnormalities in imaging tests). Lab Interpretation Abnormal (test code = 98599-8) [facility] [id number] 02:45:18 Test Item Value Reference Range Interpretation Comments NA (test code = 135 mmol/L 135-145 8561653262) K (test code = 3.9 mmol/L 3.5-5.0 5909435001) CL (test code = 104 mmol/L 98-108 7421878812) CO2 TOTAL (test code = 23 mmol/L 23-31 5979344781) AGAP (test code = 2-16 5970859076) BUN (test code = 9 mg/dL 7-23 2858568689) GLUCOSE (test code = 135 mg/dL 70-110 H 3833472888) CREATININE (test code = 0.62 mg/dL 0.50-1.04 6112596721) TOTAL BILI (test code = 0.9 mg/dL 0.1-1.5 2892460878) CALCIUM (test code = 9.9 mg/dL 8.6-10.6 5433472234) T PROTEIN (test code = 7.4 g/dL 6.3-8.2 8252981429) ALBUMIN (test code = 4.5 g/dL 3.5-5.0 3998781598) ALK PHOS (test code = 97 U/L 34-122 3907317248) ALTv (test code = 19 U/L 5-35 1742-6) AST(SGOT) (test code = 31 U/L 13-40 1034887832) eGFR (test code = mL/min/1.73m2 4743704638) NEAL (test code = NEAL) Association of Glomerular Filtration Rate (GFR) and Staging of Kidney Disease* + --+ --+ ------+| GFR (mL/min/1.73 m2) ?| With Kidney Damage ?| ?Without Kidney Damage+ --------+ --------+ +| ?>90 ?| ?Stage one ?| ? Normal ?+ ---+ ---+ -------+| ?60-89 ?| ?Stage two ?| ? Decreased GFR ? + --+ --+ ------+| ?30-59 ?| ?Stage three ?| ? Stage three ? + --+ --+ ------+| ?15-29 ?| ?Stage four ? | ? Stage four ?+ ---+ ---+ -------+| ?<15 (or dialysis) ? ?| ?Stage five ? | ? Stage five ?+ ---+ ---+ -------+ *Each stage assumes the associated GFR level has been in effect for at least three months. ?Stages 1 to 5, with or without kidney disease, indicate chronic kidney disease. Notes: Determination of stages one and two (with eGFR >59mL/min/1.73 m2) requires estimation of kidney damage for at least three months as defined by structural or functional abnormalities of the kidney, manifested by either:Pathological abnormalities or Markers of kidney damage (including abnormalities in the composition of the blood or urine or abnormalities in imaging tests). Lab Interpretation Abnormal (test code = 77294-5) [facility] Metabolic [id number] 02:45:18 Test Item Value Reference Range Interpretation Comments NA (test code = 135 mmol/L 135-145 5439796365) K (test code = 3.9 mmol/L 3.5-5.0 1660426120) CL (test code = 104 mmol/L 98-108 9360997546) CO2 TOTAL (test code = 23 mmol/L 23-31 1159805795) AGAP (test code = 2-16 8384054233) BUN (test code = 9 mg/dL 7-23 3450961078) GLUCOSE (test code = 135 mg/dL 70-110 H 1063929275) CREATININE (test code = 0.62 mg/dL 0.50-1.04 7713236033) TOTAL BILI (test code = 0.9 mg/dL 0.1-1.3 8950244293) CALCIUM (test code = 9.9 mg/dL 8.6-10.6 3353226842) T PROTEIN (test code = 7.4 g/dL 6.3-8.2 8403894720) ALBUMIN (test code = 4.5 g/dL 3.5-5.0 9476880088) ALK PHOS (test code = 97 U/L 34-122 8054594279) ALTv (test code = 19 U/L 5-35 1742-6) AST(SGOT) (test code = 31 U/L 13-40 6499521595) eGFR (test code = mL/min/1.73m2 0908113706) NEAL (test code = NEAL) Association of Glomerular Filtration Rate (GFR) and Staging of Kidney Disease* + --+ --+ ------+| GFR (mL/min/1.73 m2) ?| With Kidney Damage ?| ?Without Kidney Damage+ --------+ --------+ +| ?>90 ?| ?Stage one ?| ? Normal ?+ ---+ ---+ -------+| ?60-89 ?| ?Stage two ?| ? Decreased GFR ? + --+ --+ ------+| ?30-59 ?| ?Stage three ?| ? Stage three ? + --+ --+ ------+| ?15-29 ?| ?Stage four ? | ? Stage four ?+ ---+ ---+ -------+| ?<15 (or dialysis) ? ?| ?Stage five ? | ? Stage five ?+ ---+ ---+ -------+ *Each stage assumes the associated GFR level has been in effect for at least three months. ?Stages 1 to 5, with or without kidney disease, indicate chronic kidney disease. Notes: Determination of stages one and two (with eGFR >59mL/min/1.73 m2) requires estimation of kidney damage for at least three months as defined by structural or functional abnormalities of the kidney, manifested by either:Pathological abnormalities or Markers of kidney damage (including abnormalities in the composition of the blood or urine or abnormalities in imaging tests). Lab Interpretation Abnormal (test code = 42595-3) [facility], [id number] 02:44:37 Test Item Value Reference Range Interpretation Comments LIPASE (test code = 1174121881) 147 U/L 0-220 Lab Interpretation (test code = Normal 63555-2) [facility], Wwtpq6710-01-21 02:44:37 Test Item Value Reference Range Interpretation Comments LIPASE (test code = 1030084528) 147 U/L 0-220 Lab Interpretation (test code = Normal 26836-6) [facility], [id number] 02:44:37 Test Item Value Reference Range Interpretation Comments LIPASE (test code = 9523920911) 147 U/L 0-220 Lab Interpretation (test code = Normal 80433-4) [facility] with Uiqwmlvotnrr1725-81-54 02:38:55 Test Item Value Reference Range Interpretation Comments WBC (test code = See_Comment H [Automated 6690-2) message] The system which generated this result transmit alejandra reference range : 4.30 - 11.10 10*3/?L. The reference range was not used to interpret this result as normal/abnormal . RBC (test code = See_Comment L [Automated 789-8) message] The system which generated this result transmit alejandra reference range : 3.93 - 5.25 10*6/?L. The reference range was not used to interpret this result as normal/abnormal . HGB (test code = 13.1 g/dL 11.6-15.0 718-7) HCT (test code = 38.9 % 35.7-45.2 4544-3) MCV (test code = 103.2 fL 80.6-95.5 H 787-2) MCH (test code = 34.7 pg 25.9-32.8 H 785-6) MCHC (test code = 33.7 g/dL 31.6-35.1 786-4) RDW-SD (test code = 46.8 fL 39.0-49.9 92137-4) RDW-CV (test code = 12.5 % 12.0-15.5 788-0) PLT (test code = See_Comment [Automated 777-3) message] The system which generated this result transmit alejandra reference range : 166 - 358 10*3/ ?L. The reference range was not u sed to interpret th is result as normal/abnormal . MPV (test code = 10.8 fL 9.5-12.9 04944-1) NRBC/100 WBC (test See_Comment [Automat ed code = 3922258013) message] The system which generated this result transmit alejandra reference range : 0.0 - 10.0 /100 WBCs. The reference range was not used to interpret this result as normal/abnormal . NRBC x10^3 (test code <0.01 See_Comment [Auto mated = 6747487900) message] The system which generated this result transmit alejandra reference range : 10*3/?L. The reference range was not used to interpret this result as normal/abnormal . GRAN MAT (NEUT) % 80.7 % (test code = 770-8) IMM GRAN % (test code 0.70 % = 9016102758) LYMPH % (test code = 12.3 % 736-9) MONO % (test code = 5.9 % 5905-5) EOS % (test code = 0.1 % 713-8) BASO % (test code = 0.3 % 706-2) GRAN MAT x10^3(ANC) 12.39 10*3/uL 1.88-7.09 H (test code = 2753197567) IMM GRAN x10^3 (test 0.10 10*3/uL 0.00-0.06 H code = 7596053793) LYMPH x10^3 (test code 1.89 10*3/uL 1.32-3.29 = 731-0) MONO x10^3 (test code 0.90 10*3/uL 0.33-0.92 = 742-7) EOS x10^3 (test code = <0.03 0.03-0.39 L 711-2) BASO x10^3 (test code 0.04 10*3/uL 0.01-0.07 = 704-7) Lab Interpretation Abnormal (test code = 73787-1) [facility] with [id number] 02:38:55 Test Item Value Reference Range Interpretation Comments WBC (test code = See_Comment H [Automated 6690-2) message] The system which generated this result transmit alejandra reference range : 4.30 - 11.10 10*3/?L. The reference range was not used to interpret this result as normal/abnormal . RBC (test code = See_Comment L [Automated 789-8) message] The system which generated this result transmit alejandra reference range : 3.93 - 5.25 10*6/?L. The reference range was not used to interpret this result as normal/abnormal . HGB (test code = 13.1 g/dL 11.6-15.0 718-7) HCT (test code = 38.9 % 35.7-45.2 4544-3) MCV (test code = 103.2 fL 80.6-95.5 H 787-2) MCH (test code = 34.7 pg 25.9-32.8 H 785-6) MCHC (test code = 33.7 g/dL 31.6-35.1 786-4) RDW-SD (test code = 46.8 fL 39.0-49.9 16098-0) RDW-CV (test code = 12.5 % 12.0-15.5 788-0) PLT (test code = See_Comment [Automated 777-3) message] The system which generated this result transmit alejandra reference range : 166 - 358 10*3/ ?L. The reference range was not u sed to interpret th is result as normal/abnormal . MPV (test code = 10.8 fL 9.5-12.9 64482-4) NRBC/100 WBC (test See_Comment [Automat ed code = 4012228904) message] The system which generated this result transmit alejandra reference range : 0.0 - 10.0 /100 WBCs. The reference range was not used to interpret this result as normal/abnormal . NRBC x10^3 (test code <0.01 See_Comment [Auto mated = 8358554554) message] The system which generated this result transmit alejandra reference range : 10*3/?L. The reference range was not used to interpret this result as normal/abnormal . GRAN MAT (NEUT) % 80.7 % (test code = 770-8) IMM GRAN % (test code 0.70 % = 8359048810) LYMPH % (test code = 12.3 % 736-9) MONO % (test code = 5.9 % 5905-5) EOS % (test code = 0.1 % 713-8) BASO % (test code = 0.3 % 706-2) GRAN MAT x10^3(ANC) 12.39 10*3/uL 1.88-7.09 H (test code = 9612928378) IMM GRAN x10^3 (test 0.10 10*3/uL 0.00-0.06 H code = 1842953137) LYMPH x10^3 (test code 1.89 10*3/uL 1.32-3.29 = 731-0) MONO x10^3 (test code 0.90 10*3/uL 0.33-0.92 = 742-7) EOS x10^3 (test code = <0.03 0.03-0.39 L 711-2) BASO x10^3 (test code 0.04 10*3/uL 0.01-0.07 = 704-7) Lab Interpretation Abnormal (test code = 46913-7) [facility] Notes Date/Time Note Provider Source 2021-10-21 09:57:00-00:00 [facility] ([facility]) Brief Discharge Note w/Med Rec REPORT#:[id number] REPORT STATUS: Signed DATE:10/21/21 TIME: 956 PATIENT: SALLY MILTON UNIT #: [id number] ROOM/BED: [address] : 68 AGE: 51 SEX: F ATTEND: Thao Kulkarni MD ADM AUTHOR: Cedrick Torres * ALL edits or amendments must be made on the el ectronic/computer document * Med Rec Med Rec Discharge meds: Continue taking these medications: metFORMIN XR (GLUCOPHAGE XR) 500 MG TAB.SR.24H 1 TABLET ORAL SIMVASTATIN (ZOCOR) 5 MG TAB 5 MILLIGRAM ORAL BEDTIME. Start taking the following new medications: GABAPENTIN (NEURONTIN) 300 MG CAP 300 MILLIGRAM ORAL THREE TIMES A DAY. Days = 7 Qty = 21 No Refills HYDROcodone/APAP (NORCO 5/325) 1 TAB TAB 1 TABLET ORAL EVERY 4 HOURS NEEDED. as neede d for PAIN SCALE 7-10 Days = 3 Qty = 12 No Refills DOCUSATE SODIUM (COLACE) 100 MG CAP 100 MILLIGRAM ORAL DAILY. as needed for constip ation Days = 14 Qty = 14 No Refills Instructions: Take 1 tcap at night with a glass of water if n ot having BMs in 2 days. Call the office if constipation persist. Objective General appearance: alert, awake, oriented, no a cute distress, no respiratory distress GI: soft, no rebound, no distention Brief Discharge Note w/Med Rec Discharge to: Home/Self Care Hospital course: Pt was admitted to have her right colectomy, lita tosha went well, she recovered well in the floor. she recovered her bowel funct ion quickly and started tolerating diet well. Her ur ine was noted to be pink after surgery, however, it cleared up quickly without i ntervention. she reports no urinary problems at the moment. She had an episode of intense pain at th e incision site when she was walking, requiring one dose of IV narcotics. I c hanged her pain regimen to include norco 5/325 and hank pentin, and now her pain is much better controlled. she wants to go home today. I examined her with Dr. Mike hayward and we discussed the postoperative care in detail , including pain regimen. she understands that N orco should be taking only if the pain is not controlled with non-narcotic med ications. she was also instructed to take colace if she does no t have a BM in 2 days after discharge. She understood and agreed to proceed. Prescriptions sent. Contact numbers in the chart. Additional Discharge Routines: None Diet: Res Diet Low residue diet at 1000 RPT #:[id number] END OF REPORT 2021-10-21 09:47:00-00:00 [facility] ([facility]) Colorectal Surgery Prog Note REPORT#:[id number] REPORT STATUS: Signed DATE:10/21/21 TIME: 0947 PATIENT: SALLY MILTON UNIT #: [id number] ROOM/BED: [address] : 68 AGE: 51 SEX: F ATTEND: Thao Kulkarni MD ADM AUTHOR: Cedrick Torres * ALL edits or amendments must be made on the [employer]/computer document * General Date of surgery: 10/18/21 Status post: Robotic R colectomy Subjective Comments: Pt had intense pain yesterday, controlled with g abapentin. she is having BMs, passing flatus, tolerating LR D well. Urinating well, no blood seen in her urine. Objective General VS/I O: Last Documented: Result Date Time Pulse Ox 94 10/21 745 B/P 121/78 10/21 745 B/P Mean 92.1 10/21 07 Temp 36.8 10/21 0746 Pulse 75 10/21 0746 Resp 19 10/21 0746 O2 Delivery Room air 10/21 0334 O2 Flow Rate 10 10/18 1249 24 hour I O ending at 0700: 10/21 0700 10/20 1900 Intake Total 760 1100.00 Output Total 2750 800 Balance -1989 300 Intake, IV 200.00 Intake, Oral 760 900 Output, Urine 2750 800 PATIENT WEIGHT: Weight (lb): 187 Weight (oz): 6.29 Weight (kg): 85.000 Nutrition assessment: The data set between the solid lines has been im ported from the dietitian's assessment. Any exceptions have been noted under Provider comments. BMI Calculated: 30.2 Nutrition related diagnosis: Nutrition diagnosis details: Nutrition problem: Nutrition etiology: Nutrition signs and symptoms: Nutrition prescription: Dietitian name: Assessment completed: Provider comments on imported dietitian assessme nt: Physical Exam General appearance: alert, awake, oriented, no a cute distress, pleasant, conversational, mental status normal Wound/incision: Location: CDI, minimal induration at suprapubic site. Cardiovascular: normal S1/S2 Respiratory: aerating well, symmetric expansion Abdomen: non-tender, soft, no distention, no gua rding (incisions c/d/i) Diagnosis, Assessment Plan Free Text A P: 51F s/p robotic r colectomy continue cld for now until ROBF pain control OOB and ambulate will keep washburn for now to see if urine clears monitor labs 10/21/21. Pt was seen yesterday [facility], she was doing well and the plan was to discharge home. The process was started but then her nurse called me saying that the patient had intense pain at the suprapubic incis ion site and she was given dilaudid for that. I asked the nurse to stop IV narcotics and instead do PO norco, gabapentin and toradol IV PRN. This gave her adequate pain relief. Today the patient is passing flatus and BMs, jyoti erating diet. She would like to go home today. Pt seen and examined with Dr. Hodges. We will zain melendez today. Postoperative care discussed in detail, pt understood and agre ed. 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 PROCEDURES: 1. Laparoscopic-assisted robotic oncolog ic right hemicolectomy with lymph node dissection and primary anastomosis. 2. Excision of nodule of the right peritoneal re gion. COLORECTAL SURGEON: Thao Kulkarni MD IMPROVEMENT LEAD: Blayne Rodriguez MD ADDITIONAL INSTRUMENTATION TECH: Dr. Jeremy Hodges. ANESTHESIA: General endotracheal anesthesia. SPECIMEN: Right colon and lymph nodes. COMPLICATIONS: None. CONDITION: Stable. INDICATIONS AND FINDINGS: The patient presented after undergoing appendectomy and identified a neuroendocr ine tumor of the appendix meeting criteria requiring an oncologic right hemicolectomy. The procedure was performed robotically. The procedure was a bit more difficult because the patient had adhe sions from the recent appendectomy, specifically the right lower quadrant. Additionally, this was an on cologic resection performing extensive dissection of the lymph nodes at the level of the periaortic t ributaries into the retroperitoneum from the takeoff of the ileocoli c artery and the right colic artery at its base. This req uired extensive dissection into the retroperitoneum with dissection of the lymph nodes off the feeding vessels. Oncologic resection was performed with a lymph node dissection. Surg ical guest services assistant was present and required to complete the procedure in a safe and minimally invasive fashion. The patient tolerated the procedure well withou t complications. PATIENT NAME: SALLY MILTON [id number] PROCEDURE IN DETAIL: The patient was taken to e operating room and after induction of anesthesia, placed in supin e position. She was prepped and draped in sterile fashion. Laparoscopic access was gained with a 5-mm Optiview trocar in the patient's left upper quadrant. Additional ports were placed with an 8-mm port in the lower left and lower right a nd 12-mm suprapubic ports. Exploration was performed first. There w ere adhesions and recent surgical inflammatory area of the right lower quadrant. Lysis of adhesions were required mobilizing the ileocolic region. Next, the periaortic dissectio n was performed off the tributaries of the periaorti c area, specifically the ileocolic region. This was very difficult tedious disse ction. Care was taken as there were vessels deep in this area warranting control of bleeding with sharif th bipolar device and vessel seal device. The lymph nodes were swept off the base of the artery. The artery was then high ligated with robotic stapler with a white load. Next, retroperitoneal dissection was further c ompleted all the way to the takeoff of the right colic where the middle colic v essel, which was also dissected on the lymph nodes encompassing the lymph nodes and res ection. At this point, there was noted to be an abnormal appearing 2 cm lesion in the right peritoneal sidewall. This was resected and sent for frozen, which was indeterminate, but did not appear to cancer. Thi s was a 2 cm lesion. This was resected off of the lateral peritoneal wall using sharp dissection and cautery. Next, the right colon was mobilized as was the h epatic flexure. The mesentery corresponding to the proximal and distal levels of resection were taken down using the robotic stapler wi th the 8 blue load proximal and distal resection was performed. Next, an intracorporeal isoperistalti c anastomosis was created. Small bowel was aligned in a n isoperistaltic fashion to the transverse colon and the mesenteric enterotomies were made. The commo n channel of the anastomosis was completed with firing of the stapler with a blue load. The anastomosis was completed in 2 layers with 3-0 V-Loc suture and Vicryl suture. Examination revealed intact anastomosis. It was viable with ICG performed. At this juncture, the specimen was extracted by undocking the robot, removing the 12-mm port putting an Al exis after extending it and extracted the specimen. The surgical incision site was closed with #1 PD S suture, the fascia and the skin edges with 4-0 Monocryl and Dermabond. At this juncture, needle, in strument, laparotomy count was performed as correct. Pneumoperitoneum was released. The patient kait rated the procedure well and was taken to recovery room in good condition. Dictated By: Thao Kulkarni MD WT: OP:NHUNG/SALVADOR/NELSY Conf#: [id number]/DID#: [id number] Authenticated by Thao Kulkarni MD On 10/19/2021 0 2:00:15 PM PATIENT NAME: SALLY MILTON 9430 Electronically Signed by Thao Kulkarni MD on 10/02 05/23 at 0200 PATIENT NAME: SALLY MILTON 9430 2021-10-19 07:39:00-00:00 [facility] ([facility]) Colorectal Surgery Prog Note REPORT#:[id number] REPORT STATUS: Signed DATE:10/19/21 TIME: 738 PATIENT: SALLY MILTON UNIT #: [id number] ROOM/BED: [address] : 66 AGE: 51 SEX: F ATTEND: Thao Kulkarni MD ADM AUTHOR: Sajan Knight DO * ALL edits or amendments must be made on the [employer]/computer document * General Date of surgery: 10/18/21 Status post: Robotic R colectomy Subjective HPI: No events. Feels well. No fl atus yet. urine reportedly bloody yesterday but pink this morning Review of Systems All systems rev neg: except as marked Objective General VS/I O: Last Documented: Result Date Time Pulse Ox 95 10/19 727 B/P 127/79 10/19 727 B/P Mean 95.1 10/19 727 Temp 98.6 10/19 727 Pulse 82 10/19 0728 Resp 16 10/19 727 O2 Delivery Room air 10/18 1345 O2 Flow Rate 10 10/18 1249 24 hour I O ending at 0700: 10/19 0700 10/18 1900 Intake Total 2100.00 2100.00 Output Total 1600 525 Balance 500 1575.00 Intake, IV 600.00 1600.00 Intake, Oral 1500 500 Number Voids Output, 50 Estimated Blood Loss Output, Urine 1600 475 Patient 85 kg Weight Weight Standing scale Measurement Method PATIENT WEIGHT: Weight (lb): 187 Weight (oz): 6.29 Weight (kg): 85.000 Physical Exam General appearance: alert, awake, oriented, no a cute distress Cardiovascular: normal S1/S2 Respiratory: aerating well, symmetric expansion Abdomen: non-tender, soft, no distention, no gua rding (incisions c/d/i) Genitourinary - Female Washburn pink Treatment Prophylaxis Treatment Prophylaxis Washburn status: day 1 Diagnosis, Assessment Plan Free Text A P: 51F s/p robotic r colectomy continue cld for now until ROBF pain control OOB and ambulate will keep washburn for now to see if urine clears monitor labs Electronically Signed by Sajan Knight DO o n 10/19/21 at 0745 [facility] #:[id number] END OF REPORT
--- NOTE | 2023-05-24 23:20 | ER ---
Nurse's Notes [facility] Name: Sally Anderson Age: 52 yrs Sex: Female : 1970 Arrival Date: 05/24/2023 Time: 21:59 Bed IW4 Private MD: Diagnosis: Pain in left [id number]-Hihn-ehrvybhrc Presentation: 05/24 22:37 Chief complaint: Patient states: 12 days post scope to left knee. sent by lg3 for DVT rule out. new onset tenderness/pain to left calf. Coronavirus screen: Client denies travel out of the [place] in the last 14 days. At this time, the client does not indicate any symptoms associated with coronavirus-19. Ebola Screen: No symptoms or risks identified at this time. Initial Sepsis Screen: Does the patient meet any 2 criteria? No. Patient's initial sepsis screen is negative. Does the patient have a suspected source of infection? No. Patient's initial sepsis screen is negative. Risk Assessment: Do you want to hurt yourself or someone else? Patient reports no desire to harm self or others. Onset of symptoms was May 24, 2023. 22:37 Method Of Arrival: Ambulatory lg3 22:37 Acuity: SAMANTHA 3 lg3 Triage Assessment: 22:39 General: Appears in no apparent distress. comfortable, Behavior is calm, cooperative. lg3 Pain: Complains of pain in left calf. EENT: No deficits noted. No signs and/or symptoms were reported regarding the EENT system. Neuro: No deficits noted. De La Torre Agitation-Sedation Scale (RASS): 0 - Alert and Calm Level of Consciousness is awake, alert, obeys commands, Oriented to person, place, time, situation. Cardiovascular: No deficits noted. Denies chest pain, shortness of breath, Capillary refill < 3 seconds Clubbing of nail beds is absent JVD is absent Patient's skin is warm and dry. Respiratory: No deficits noted. Airway is patent Respiratory effort is even, unlabored, Respiratory pattern is regular, symmetrical, Denies cough, shortness of breath. GI: No deficits noted. No signs and/or symptoms were reported involving the gastrointestinal system. : No deficits noted. No signs and/or symptoms were reported regarding the genitourinary system. Derm: Skin is intact, is healthy with good turgor, Skin is dry, Skin is normal, Skin temperature is warm Bruising that is dark purple, green, on left leg. Musculoskeletal: Circulation, motion, and sensation intact. Range of motion: intact in all extremities. COOK CHILI: 22:39 LMP N/A - Post-menopause lg3 Historical: - Allergies: 22:39 Bees; lg3 - Home Meds: 22:39 aspirin 325 mg Oral capsule daily [Active]; lg3 - PMHx: 22:39 None; lg3 - PSHx: 22:39 Cholecystectomy; uterine ablation; Appendectomy; hemicolectomy; left knee scope; lg3 - Immunization history:: Adult Immunizations up to date, Client reports receiving the 2nd dose of the Covid vaccine, Flu vaccine is up to date. - Social history:: Smoking status: Patient denies any tobacco usage or history of. Patient uses alcohol, weekly. Patient/guardian denies using street drugs. - Family history:: not pertinent. - Hospitalizations: : No recent hospitalization is reported. Screenin:35 [facility] ED Fall Risk Assessment (Adult) Score/Fall Risk Level 0 - 2 = Low Risk. Abuse as6 screen: Denies threats or abuse. Denies injuries from another. Nutritional screening: No deficits noted. Tuberculosis screening: No symptoms or risk factors identified. Vital Signs: 22:37 BP 154 / 99; Pulse 65; Resp 18 S; Temp 98(O); Pulse Ox 100% on R/A; Weight 79.38 kg lg3 (R); Height 5 ft. 6 in. ; 22:37 Body Mass Index 28.25 (79.38 kg, 167.64 cm) lg3 ED Course: 22:02 Patient arrived in ED. ag3 22:03 Jamal Barone MD is Attending Physician. rn 22:39 Triage completed. lg3 22:39 Arm band placed on right wrist. lg3 23:19 Extremity Venous Uni Ltd US In Process Unspecified. EDMS 23:19 Sajan Cline MD is Referral Physician. rn 23:35 Patient has correct armband on for positive identification. Provided Education on: as6 follow up. 23:36 No provider procedures requiring assistance completed. Patient did not have IV access as6 during this emergency room visit. Administered Medications: No medications were administered Medication: 23:35 VIS not applicable for this client. as6 Outcome: 23:20 Discharge ordered by . rn 23:36 Discharged to home ambulatory. as6 23:36 Condition: stable 23:36 Discharge instructions given to patient, Instructed on discharge instructions, follow up and referral plans. Demonstrated understanding of instructions, follow-up care. 23:36 Patient left the ED. as6 Signatures: Dispatcher [employer] EDMS Jamal Barone MD MD rn Gomez, Alice ag3 Mikaela Marquez RN RN lg3 Balwinder Chao RN RN as6
--- NOTE | 2023-05-24 23:20 | EDPHYS ---
Physician Documentation [facility] Name: Sally Anderson Age: 52 yrs Sex: Female : 1970 Arrival Date: 05/24/2023 Time: 21:59 Bed IW4 Private MD: ED Physician Jamal Barone HPI: 05/24 22:14 This 52 yrs old Female presents to ER via Unassigned with complaints of Leg Pain. rn 22:14 The patient presents with pain, swelling. The complaints affect the left calf and left rn quadriceps. Onset: The symptoms/episode began/occurred today. Modifying factors: The symptoms are alleviated by nothing. the symptoms are aggravated by upright position. Severity of symptoms: At their worst the symptoms were mild, in the emergency department the symptoms are unchanged. The patient has not experienced similar symptoms in the past. The patient has been recently seen by a physician:. Pt reports 12 days post-op from left knee procedure, ALA and at risk for DVT, has been ambulatory for last few days and back to work, taking 325mg aspirin, has never had DVT/pE, but directed here to rule it out. NO chest pain/sob. . CARDIOVASCULAR SURGEON: 22:39 LMP N/A - Post-menopause lg3 Historical: - Allergies: 22:39 Bees; lg3 - Home Meds: 22:39 aspirin 325 mg Oral capsule daily [Active]; lg3 - PMHx: 22:39 None; lg3 - PSHx: 22:39 Cholecystectomy; uterine ablation; Appendectomy; hemicolectomy; left knee scope; lg3 - Immunization history:: Adult Immunizations up to date, Client reports receiving the 2nd dose of the Covid vaccine, Flu vaccine is up to date. - Social history:: Smoking status: Patient denies any tobacco usage or history of. Patient uses alcohol, weekly. Patient/guardian denies using street drugs. - Family history:: not pertinent. - Hospitalizations: : No recent hospitalization is reported. ROS: 22:14 Constitutional: Negative for fever, chills, and weight loss, Cardiovascular: Negative rn for chest pain, palpitations, and edema, Respiratory: Negative for shortness of breath, cough, wheezing, and pleuritic chest pain, MS/Extremity: + swelling and bruising to left leg Exam: 22:14 Constitutional: This is a well developed, well nourished patient who is awake, alert, rn and in no acute distress. Cardiovascular: Regular rate and rhythm. No pulse deficits. Respiratory: No increased work of breathing, no retractions or nasal flaring. MS/ Extremity: Pulses equal, no cyanosis. Neurovascular intact. Full, normal range of motion. LLE with 1cm greater circumference compared to RLE, with ecchymosis along medial left thigh and around knee. No focal tenderness. Vital Signs: 22:37 BP 154 / 99; Pulse 65; Resp 18 S; Temp 98(O); Pulse Ox 100% on R/A; Weight 79.38 kg lg3 (R); Height 5 ft. 6 in. ; 22:37 Body Mass Index 28.25 (79.38 kg, 167.64 cm) lg3 MDM: 22:03 Patient medically screened. rn 23:18 Differential diagnosis: DVT, edema, migration of hematoma. Data reviewed: vital signs, rn nurses notes, radiologic studies, ultrasound, and as a result, I will discharge patient. Counseling: I had a detailed discussion with the patient and/or guardian regarding the historical points, exam findings, and any diagnostic results supporting the discharge/admit diagnosis, radiology results, the need for outpatient follow up, to return to the emergency department if symptoms worsen or persist or if there are any questions or concerns that arise at home. Special discussion: I discussed with the patient/guardian in detail that at this point there is no indication for admission to the hospital. It is understood, however, that if the symptoms persist or worsen the patient needs to return immediately for re-evaluation. Based on the history and exam findings, there is no indication for further emergent testing or inpatient evaluation. I discussed with the patient/guardian the need to see the orthopedic surgeon for further evaluation of the symptoms. ED course: set up mold technician called me to report ultrasound for DVT negative. Updated patient and will dc home. Has appt with Dr. Cline tomorrow. Return precautions given and understood.. 05/24 22:14 Order name: Extremity Venous [facility] [employer] rn Administered Medications: No medications were administered Disposition Summary: 05/24/23 23:20 Discharge Ordered Location: Home rn Problem: new rn Symptoms: have improved rn Condition: Stable rn Diagnosis - Pain in left leg - Post-operative rn Followup: rn - With: Sajan Cline MD - When: Tomorrow - Reason: Recheck today's complaints, Re-evaluation by your physician Forms: - Medication Reconciliation Form rn - Thank You Letter rn - Antibiotic phd intern - Prescription Opioid Use rn - Patient Portal Instructions rn - Leadership Thank You Letter rn Signatures: Dispatcher [employer] Jamal Alexis MD MD rn Gibson, Lacie, RN RN lg3
[2023-05-24 23:45] VITALS: BP 154/99; TEMP 98; O2SAT 100
--- NOTE | 2023-05-25 08:11 | RAD REPORT ---
EXAM DESCRIPTION: US - Extremity Venous Uni Ltd - 05/24/2023 11:18 pm CLINICAL HISTORY: recent knee surgery;Pain;Swelling Leg swelling and edema. COMPARISON: No comparisons FINDINGS: Left lower extremity venous system was interrogated with Doppler technique. Normal flow, c ompressibility and augmentation was noted. There is no DVT present. IMPRESSION: No evidence of left lower extremity deep venous thrombosis.
== END 2023-05-24 23:36 | disposition home or self-care (01) ==
LOC: ER 21:59
DX: M79.605 Pain in left leg (principal); Z98.890 Other specified postprocedural states; Z91.030 Bee allergy status
CPT/HCPCS: 93971

== ENCOUNTER 2023-09-10 01:16 | Emergency (ER) | payer BC ==
--- OUTSIDE RECORDS SUMMARY | 2023-09-10 01:28 | XMS REPORT | Continuity of Care Document ---
Author Name Unknown Address [address] [facility] [address] [place] [address] [facility] thconnect Address [address] [facility] 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 Phone Asked, No Pcp Primary Care Physician Unavailab Brunilda Elliott Attending Clinician Unavailable [email or web address] Attending Clinician UnavailThao Branch Attending Clinician Unavailable THAO KULKARNI Attending Clinician Unavailable Any Grant MD Attending Clinician [phone] Jacquie Crespo LVN Attending Clinician [phone] Jarrett Navarro MD Attending Clinician [phone] Braydon Perkins DO Attending Clinician [phone] Asif Martinez MD Attending Clinician [phone] ASIF MARTINEZ Attending Clinician Unavailable Justin Caedna MD Attending Clinician [phone] [place] Redmond CRNA Attending Clinician [phone] [email or web address] Admitting Clinician Unavaila Thao Uriarte Admitting Clinician Unavailable Asif Martinez MD Admitting Clinician + ASIF MARTINEZ Admitting Clinician Unavailable Payers Payer Name Policy Type Policy Number Effective Date Expirati on Date Source [employer] [id number] [facility] 6 [id number] [facility] Problems Condition Name Condition Details Condition Category Status Onset Date Resolution Date Last Treatment Date Treating Clinician Comments Source Perforated appendix Perforated appendix Disease Active 2020-10 00:00: 00 [facility] Acute appendicit is with perforatio n and generalize d peritoniti s, without abscess or gangrene Acute appendicit is with perforatio n and generalize d peritoniti s, without abscess or gangrene Disease Active 2020-10 00:00: 00 [facility] [id number] Pain, joint, knee, right Problem [facility] [id number] Pain, joint, knee, left Problem [facility] [id number] Other tear of medial meniscus of right knee as current injury, subsequent encounter Problem [facility] [id number] Primary osteoarthr itis of right knee Problem [facility] [id number] Pre-op testing Problem [facility] [id number] Status post arthroscop y of right knee Problem [facility] [id number] Arthritis of left knee Problem [facility] Allergies, Adverse Reactions, Alerts Allergy Name Allergy Type Status Severity Reaction(s) Onset Date Inactive Date Treating Clinician Comments Source No Known Allergie s DA Active U 2022-0 1-13 00:00: 00 [facility] NO KNOWN ALLERGIE S Drug Class Active [facility] Social History Social Habit Start Date Stop Date Quantity Comments Source History of Tobacco Use [facility] Gender identity [facility] History SDOH Alcohol Frequency [facility] History SDOH Alcohol Std Drinks [facility] History SDOH Alcohol Binge [facility] intake 2021-09-06 00:00:00 2021-09-06 00:00:00 Current drinker of alcohol (finding) [facility] History of Social function 2021-09-06 00:00:00 2021-09-06 00:00:00 [facility] Exposure to SARS-CoV-2 (event) 2021-08-05 00:00:00 2021-09-04 20:42:00 Not sure [facility] Tobacco use and exposure 2021-09-04 00:00:00 2021-09-04 00:00:00 Smokeless tobacco non-user [facility] Alcohol Comment 2021-09-04 00:00:00 2021-09-04 00:00:00 social drinker [facility] Sex Assigned At 1970 00:00:00 1970 00:00:00 [facility] Smoking Status Start Date Stop Date Source Tobacco smoking consumption unknown [facility] Never Smoker [facility] Medications Ordered Medication Name Filled Medication Name Start Date Stop Date Current Medication? Ordering Clinician Indication Dosage Frequency Signature (SIG) Comments Components Source Acetaminoph en-Codeine 300-30 MG Acetaminoph en-Codeine 300-30 MG 2022-0 - 00:00: 00 No 1{table t_as_ne eded} QID Acetaminop hen-Codein e 300-30 MG Acetaminoph en-Codeine 300-30 MG Acetaminoph en-Codeine 300-30 MG 3-0 8- 00:00: 00 No 1{table t_as_ne eded} QID Acetaminop hen-Codein e 300-30 MG Acetaminoph en-Codeine 300-30 MG Acetaminoph en-Codeine 300-30 MG 2023-0 8-11 00:00: 00 No 1{table t_as_ne eded} QID Acetaminop hen-Codein e 300-30 MG Acetaminoph en-Codeine 300-30 MG Acetaminoph en-Codeine 300-30 MG 2023-0 8-11 00:00: 00 No 1{table t_as_ne eded} QID Acetaminop hen-Codein e 300-30 MG Acetaminoph en-Codeine 300-30 MG Acetaminoph en-Codeine 300-30 MG 2023-0 8-11 00:00: 00 No 1{table t_as_ne eded} QID Acetaminop hen-Codein e 300-30 MG Acetaminoph en-Codeine #3 300-30 MG Acetaminoph en-Codeine #3 300-30 MG 2022-0 9-26 00:00: 00 No 1{table t_as_ne eded} Acetaminop hen-Codein e #3 300-30 MG Acetaminoph en-Codeine #3 300-30 MG Acetaminoph en-Codeine #3 300-30 MG 2022-0 926 00:00: 00 No 1{table t_as_ne eded} Acetaminop hen-Codein e #3 300-30 MG Acetaminoph en-Codeine #3 300-30 MG Acetaminoph en-Codeine #3 300-30 MG 2022-0 9-26 00:00: 00 No 1{table t_as_ne eded} Acetaminop hen-Codein e #3 300-30 MG Acetaminoph en-Codeine #3 300-30 MG Acetaminoph en-Codeine #3 300-30 MG 2022-0 9-26 00:00: 00 No 1{table t_as_ne eded} Acetaminop hen-Codein e #3 300-30 MG Acetaminoph en-Codeine #3 300-30 MG Acetaminoph en-Codeine #3 300-30 MG 2022-0 9-26 00:00: 00 No 1{table t_as_ne eded} Acetaminop hen-Codein e #3 300-30 MG Acetaminoph en-Codeine #3 300-30 MG Acetaminoph en-Codeine #3 300-30 MG 2022-0 9-26 00:00: 00 No 1{table t_as_ne eded} Acetaminop hen-Codein e #3 300-30 MG Acetaminoph en-Codeine #3 300-30 MG Acetaminoph en-Codeine #3 300-30 MG 2022-0 9-26 00:00: 00 No 1{table t_as_ne eded} Acetaminop hen-Codein e #3 300-30 MG Acetaminoph en-Codeine #3 300-30 MG Acetaminoph en-Codeine #3 300-30 MG 2022-0 9-26 00:00: 00 No 1{table t_as_ne eded} Acetaminop hen-Codein e #3 300-30 MG Mobic 7.5 MG Mobic 7.5 MG 2022-0 9- 00:00: 00 07-02 00:00 :00 No 1{table t} QD Mobic 7.5 MG Mobic 7.5 MG Mobic 7.5 MG 2-0 - 00:00: 00 07-02 00:00 :00 No 1{table t} QD Mobic 7.5 MG Mobic 7.5 MG Mobic 7.5 MG 2-0 - 00:00: 00 07-02 00:00 :00 No 1{table t} QD Mobic 7.5 MG Mobic 7.5 MG Mobic 7.5 MG 2-0 - 00:00: 00 07-02 00:00 :00 No 1{table t} QD Mobic 7.5 MG Mobic 7.5 MG Mobic 7.5 MG 2-0 - 00:00: 00 07-02 00:00 :00 No 1{table t} QD Mobic 7.5 MG Mobic 7.5 MG Mobic 7.5 MG 2-0 - 00:00: 00 07-02 00:00 :00 No 1{table t} QD Mobic 7.5 MG Mobic 7.5 MG Mobic 7.5 MG 2-0 - 00:00: 00 07-02 00:00 :00 No 1{table t} QD Mobic 7.5 MG Mobic 7.5 MG Mobic 7.5 MG 06-02 00:00: 00 07-02 00:00 :00 No 1{table t} QD Mobic 7.5 MG KCL (KLOR-CON M20) tablet 40 mEq 2020-10 15:30: 00 09-06 14:55 :00 No 40meq 40 mEq, Oral, ONCE, 1 dose, On Mon09/06/21 at 0930, Routine [facility] SIMVASTATIN ORAL 2020-10 13:18: 09 Yes 5mg Take 5 mg by mouth. [facility] sertraline HCl (SERTRALINE ORAL) 2020-10 13:18: 09 Yes 100mg Take 100 mg by mouth. [facility] metformin ER 500 mg 24 hr tablet 2020-10 13:18: 09 Yes 500mg Take 500 mg by mouth daily with breakfast. [facility] SIMVASTATIN ORAL 2020-10 13:18: 09 Yes 5mg Take 5 mg by mouth. [facility] sertraline HCl (SERTRALINE ORAL) 2020-10 13:18: 09 Yes 100mg Take 100 mg by mouth. [facility] metformin ER 500 mg 24 hr tablet 2020-10 13:18: 09 Yes 500mg Take 500 mg by mouth daily with breakfast. [facility] SIMVASTATIN ORAL 2020-10 13:18: 09 Yes 5mg Take 5 mg by mouth. [facility] sertraline HCl (SERTRALINE ORAL) 2020-10 13:18: 09 Yes 100mg Take 100 mg by mouth. [facility] metformin ER 500 mg 24 hr tablet 2020-10 13:18: 09 Yes 500mg Take 500 mg by mouth daily with breakfast. [facility] SIMVASTATIN ORAL 2020-10 13:18: 09 Yes 5mg Take 5 mg by mouth. [facility] sertraline HCl (SERTRALINE ORAL) 2020-10 13:18: 09 Yes 100mg Take 100 mg by mouth. [facility] metformin ER 500 mg 24 hr tablet 2020-10 13:18: 09 Yes 500mg Take 500 mg by mouth daily with breakfast. [facility] SIMVASTATIN ORAL 2020-10 13:18: 09 Yes 5mg Take 5 mg by mouth. [facility] sertraline HCl (SERTRALINE ORAL) 2020-10 13:18: 09 Yes 100mg Take 100 mg by mouth. [facility] metformin ER 500 mg 24 hr tablet 2020-10 13:18: 09 Yes 500mg Take 500 mg by mouth daily with breakfast. [facility] SIMVASTATIN ORAL 2020-10 13:18: 09 Yes 5mg Take 5 mg by mouth. [facility] sertraline HCl (SERTRALINE ORAL) 2020-10 13:18: 09 Yes 100mg Take 100 mg by mouth. [facility] metformin ER 500 mg 24 hr tablet 2020-10 13:18: 09 Yes 500mg Take 500 mg by mouth daily with breakfast. [facility] SIMVASTATIN ORAL 2020-10 13:18: 09 Yes 5mg Take 5 mg by mouth. [facility] sertraline HCl (SERTRALINE ORAL) 2020-10 13:18: 09 Yes 100mg Take 100 mg by mouth. [facility] metformin ER 500 mg 24 hr tablet 2020-10 13:18: 09 Yes 500mg Take 500 mg by mouth daily with breakfast. [facility] SIMVASTATIN ORAL 2020-10 13:18: 09 Yes 5mg Take 5 mg by mouth. [facility] sertraline HCl (SERTRALINE ORAL) 2020-10 13:18: 09 Yes 100mg Take 100 mg by mouth. [facility] metformin ER 500 mg 24 hr tablet 2020-10 13:18: 09 Yes 500mg Take 500 mg by mouth daily with breakfast. [facility] SIMVASTATIN ORAL 2020-10 13:18: 09 Yes 5mg Take 5 mg by mouth. [facility] sertraline HCl (SERTRALINE ORAL) 2020-10 13:18: 09 Yes 100mg Take 100 mg by mouth. [facility] metformin ER 500 mg 24 hr tablet 2020-10 13:18: 09 Yes 500mg Take 500 mg by mouth daily with breakfast. [facility] phentermine 37.5 mg capsule 2020-10 11:44: 07 09-06 00:00 :00 No 37.5mg Take 37.5 mg by mouth every morning. [facility] phentermine 37.5 mg capsule 2020-10 11:44: 07 09-06 00:00 :00 No 37.5mg Take 37.5 mg by mouth every morning. [facility] phentermine 37.5 mg capsule 2020-10 11:44: 07 09-06 00:00 :00 No 37.5mg Take 37.5 mg by mouth every morning. [facility] HYDROcodone -acetaminop hen 5-325 mg tablet 2020-10 00:00: 00 Yes [id number] 1{tbl} Take 1 tablet by mouth every 6 (six) hours as needed for Pain (scale 7-10). Indication s: acute pain [facility] HYDROcodone -acetaminop hen 5-325 mg tablet 2020-10 00:00: 00 Yes [id number] 1{tbl} Take 1 tablet by mouth every 6 (six) hours as needed for Pain (scale 7-10). Indication s: acute pain [facility] HYDROcodone -acetaminop hen 5-325 mg tablet 2020-10 00:00: 00 Yes [id number] 1{tbl} Take 1 tablet by mouth every 6 (six) hours as needed for Pain (scale 7-10). Indication s: acute pain [facility] HYDROcodone -acetaminop hen 5-325 mg tablet 2020-10 00:00: 00 Yes [id number] 1{tbl} Take 1 tablet by mouth every 6 (six) hours as needed for Pain (scale 7-10). Indication s: acute pain [facility] HYDROcodone -acetaminop hen 5-325 mg tablet 2020-10 2- 00:00: 00 Yes [id number] 1{tbl} Take 1 tablet by mouth every 6 (six) hours as needed for Pain (scale 7-10). Ind[facility]-325 mg tablet 2020-10 2 00:00: 00 Yes 4647 1{tbl} Take 1 tablet by mouth every 6 (six) hours as needed for Pain (scale 7-10). Indication [facility]: [facility] -[facility] 5-325 mg tablet 2020-10 00:00: 00 Yes [id number] 1{tbl} Take 1 tablet by mouth every 6 (six) hours as needed for Pain (scale 7-10). Indication [facility]: [facility] -[facility] 5-325 mg tablet 2020-10 00:00: 00 Yes 4647 1{tbl} Take 1 tablet by mouth every 6 (six) hours as needed for Pain (scale 7-10). Indication s: acute pain [facility] HYDROcodone -acetaminop hen 5-325 mg tablet 2020-10 00:00: 00 Yes [id number] 1{tbl} Take 1 tablet by mouth every 6 (six) hours as needed for Pain (scale 7-10). Indication s: acute pain [facility] amoxicillin -clavulanat e (AUGMENTIN) 875-125 mg per tablet 2020-10 2 00:00: 00 09-15 05:59 :00 No [id number] 1{tbl} Take 1 tablet by mouth 2 (two) times daily for 8 days. [facility] amoxicillin -clavulanat e (AUGMENTIN) 875-125 mg per tablet 2020-10 2 00:00: 00 09-15 05:59 :00 No [id number] 1{tbl} Take 1 tablet by mouth 2 (two) times daily for 8 days. [facility] amoxicillin -clavulanat e (AUGMENTIN) 875-125 mg per tablet 2020-10 2- 00:00: 00 09-15 05:59 :00 No [id number] 1{tbl} Take 1 tablet by mouth 2 (two) times daily for 8 days. [facility] amoxicillin -clavulanat e (AUGMENTIN) 875-125 mg per tablet 2020-10 00:00: 00 09-15 05:59 :00 No [id number] 1{tbl} Take 1 tablet by mouth 2 (two) times daily for 8 days. [facility] amoxicillin -clavulanat e (AUGMENTIN) 875-125 mg per tablet 2020-10 00:00: 00 09-15 05:59 :00 No [id number] 1{tbl} Take 1 tablet by mouth 2 (two) times daily for 8 days. [facility] potassium chloride in water 10 mEq/100 mL RTU 10 mEq 2020-10 18:00: 00 09-05 21:38 :00 No 10meq 10 mEq, IV Piggyback, Q1H, 3 doses, First dose (after last modificati on) on 09/05/21 at 1200, Last dose on 09/05/21 at 1400, Administer over 60 Minutes, 100 mL [facility] lidocaine 1% (XYLOCAINE) 10 mg/mL (1 %) injection 2020-10 17:16: 00 09-05 18:03 :46 No PRN, Starting on 09/05/21 at 1116, Until 09/05/21 at 1203, Routine, Intra-op [facility] morpHINE injection 2 mg 2020-10 17:04: 46 Yes 2mg 2 mg, Slow IV Push, Q4HPRN, Starting on 09/05/21 at 1104, Until Discontinu ed, Routine, Breakthrou gh pain [facility] morpHINE injection 2 mg 2020-10 17:04: 46 Yes 2mg 2 mg, Slow IV Push, Q4HPRN, Starting on 09/05/21 at 1104, Until Discontinu ed, Routine, Breakthrou gh pain [facility] HYDROcodone -acetaminop hen (NORCO) 10-325 mg tablet 1 tablet 2020-10 17:04: 27 Yes 1{tbl} 1 tablet, Oral, Q6HPRN, Starting on 09/05/21 at 1104, Until Discontinu ed, Routine, Pain (scale 7-10) [facility] HYDROcodone -acetaminop hen (NORCO) 10-325 mg tablet 1 tablet 2020-10 17:04: 27 Yes 1{tbl} 1 tablet, Oral, Q6HPRN, Starting on 09/05/21 at 1104, Until Discontinu ed, Routine, Pain (scale 7-10) [facility] HYDROcodone -acetaminop hen (NORCO 5) 5-325 mg tablet 1 tablet 2020-10 17:04: 16 Yes 1{tbl} 1 tablet, Oral, Q6HPRN, Starting on 09/05/21 at 1104, Until Discontinu ed, Routine, Pain (scale 4-6) [facility] HYDROcodone -acetaminop hen (NORCO 5) 5-325 mg tablet 1 tablet 2020-10 17:04: 16 Yes 1{tbl} 1 tablet, Oral, Q6HPRN, Starting on 09/05/21 at 1104, Until Discontinu ed, Routine, Pain (scale 4-6) [facility] ibuprofen (IBU) tablet 400 mg 2020-10 17:03: 12 Yes 400mg 400 mg, Oral, Q6HPRN, Starting on 09/05/21 at 1103, Until Discontinu ed, Routine, Pain (scale 1-3) [facility] ibuprofen (IBU) tablet 400 mg 2020-10 17:03: 12 Yes 400mg 400 mg, Oral, Q6HPRN, Starting on 09/05/21 at 1103, Until Discontinu ed, Routine, Pain (scale 1-3) [facility] bupivacaine (preserv free) 0.5% (SENSORCAIN E MPF) 0.5 % (5 mg/mL) injection 2020-10 16:06: 00 09-05 18:03 :46 No PRN, Starting on 09/05/21 at 1006, Until 09/05/21 at 1203, Routine, Intra-op [facility] piperacilli n-tazobacta m (ZOSYN) 3.375 g in NaCl 0.9% (NS) 100 mL MINI-BAG 2020-10 15:45: 00 Yes 3.375g 3.375 g, IV Piggyback, Q6H ABX, First dose on 09/05/21 at 0945, Until Discontinu ed, Administer over 30 Minutes, 100 mL
Reas on for Anti-Infec tive: Documented Infection< br>Documen alejandra Infection Site: Abdominal< br>Duratio n of Therapy: 14 days [facility] piperacilli n-tazobacta m (ZOSYN) 3.375 g in NaCl 0.9% (NS) 100 mL MINI-BAG 2020-10 15:45: 00 Yes 3.375g 3.375 g, IV Piggyback, Q6H ABX, First dose on 09/05/21 at 0945, Until Discontinu ed, Administer over 30 Minutes, 100 mL
Reas on for Anti-Infec tive: Documented Infection< br>Documen alejandra Infection Site: Abdominal< br>Duratio n of Therapy: 14 days [facility] sodium chloride 0.9 % irrigation solution 2020-10 15:45: 00 09-05 18:03 :46 No PRN, Starting on Mon09/05/21 at 0945, Until Mon09/05/21 at 1203, Intra-op [facility] enoxaparin (LOVENOX) injection 40 mg 2020-10 15:00: 00 Yes 40mg 40 mg, Subcutaneo us, DAILY, First dose on 09/05/21 at 0900, Until Discontinu ed, Routine [facility] enoxaparin (LOVENOX) injection 40 mg 2020-10 15:00: 00 Yes 40mg 40 mg, Subcutaneo us, DAILY, First dose on 09/05/21 at 0900, Until Discontinu ed, Routine [facility] proMETHazin e (PHENERGAN) 25 mg in NaCl 0.9% (NS) 50 mL IV piggyback 2020-10 13:58: 14 Yes 25mg 25 mg, IV Piggyback, Q4HPRN, Starting on Mon09/05/21 at 0758, Until Discontinu ed, Routine, Nausea and Vomiting (N/V) [facility] proMETHazin e (PHENERGAN) 25 mg in NaCl 0.9% (NS) 50 mL IV piggyback 2020-10 13:58: 14 Yes 25mg 25 mg, IV Piggyback, Q4HPRN, Starting on Mon09/05/21 at 0758, Until Discontinu ed, Routine, Nausea and Vomiting (N/V) [facility] acetaminoph en ADULT (OFIRMEV) injection 1,000 mg 2020-10 13:00: 00 09-05 12:28 :00 No 1000mg 1,000 mg, IV Infusion, Administer over 15 Minutes, ONCE, 1 dose, On Mon09/05/21 at 0700, Routine
Indicatio n: Non-periop erative Patient
Approved by: Per Policy (NPO Status) [facility] piperacilli n-tazobacta m (ZOSYN) 3.375 g in NaCl 0.9% (NS) 100 mL MINI-BAG 2020-10 10:00: 00 09-05 10:16 :00 No 3.375g 3.375 g, IV Piggyback, ONCE, 1 dose, On Mon09/05/21 at 0400, Administer over 30 Minutes, 100 mL
Reas on for Anti-Infec tive: Surgical Prophylaxi s
Surgi micheline Prophylaxi s: Abdominal< br>Duratio n of therapy: within 24 hours of surgery [facility] lactated ringers IV infusion 1,000 mL 2020-10 06:30: 00 09-05 17:08 :13 No 1000mL at 100 mL/hr, 1,000 mL, IV Infusion, CONTINUOUS , Starting on Mon09/05/21 at 0030, Until Mon09/05/21 at 1108, Routine [facility] Sliding Scale Insulin - Lispro (HumaLOG) + Fsbg Testing 2020-10 06:00: 00 Yes Subcutaneo us, Q6H, First dose on 09/05/21 at 0000, Until Discontinu ed, Routine [facility] Sliding Scale Insulin - Lispro (HumaLOG) + Fsbg Testing 2020-10 06:00: 00 Yes Subcutaneo us, Q6H, First dose on 09/05/21 at 0000, Until Discontinu ed, Routine [facility] D5W 0.45% NaCl (1/2NS) IV infusion 1,000 mL 2020-10 06:00: 00 09-05 05:18 :31 No 1000mL at 125 mL/hr, 1,000 mL, IV Infusion, CONTINUOUS , Starting on 09/05/21 at 0000, Until 09/04/21 at 2318, MACI [facility] piperacilli n-tazobacta m (ZOSYN) 3.375 g in NaCl 0.9% (NS) 100 mL MINI-BAG 2020-10 05:45: 00 09-05 05:08 :00 No 3.375g 3.375 g, IV Piggyback, ONCE, 1 dose, On 09/04/21 at 2345, Administer over 30 Minutes, 100 mL
Reas on for Anti-Infec tive: Surgical Prophylaxi s
Surgi micheline Prophylaxi s: Abdominal< br>Duratio n of therapy: within 24 hours of surgery [facility] LORazepam (ATIVAN) injection 0.5 mg 2020-10 05:22: 25 Yes .5mg 0.5 mg, Slow IV Push, QHSPRN, Starting on 09/04/21 at 2322, Until Discontinu ed, Routine, Anxiety [facility] LORazepam (ATIVAN) injection 0.5 mg 2020-10 05:22: 25 Yes .5mg 0.5 mg, Slow IV Push, QHSPRN, Starting on 09/04/21 at 2322, Until Discontinu ed, Routine, Anxiety [facility] morpHINE injection 4 mg 2020-10 05:15: 00 09-05 04:07 :00 No 4mg 4 mg, Slow IV Push, ONCE, 1 dose, On 09/04/21 at 2315, STAT [facility] glucagon (GLUCAGEN DIAGNOSTIC KIT) injection 1 mg 2020-10 04:52: 43 Yes 1mg 1 mg, Intramuscu lar, PRN, Starting on 09/04/21 at 2252, Until Discontinu ed, MACI, Blood Glucose < or = 70 mg/dL and patient is unable to swallow or has mental changes. [facility] dextrose 50 % in water (D50W) injection 25 mL 2020-10 04:52: 43 Yes 25mL 25 mL, Slow IV Push, PRN, Starting on 09/04/21 at 2252, Until Discontinu ed, MACI, Blood Glucose < or = 70 mg/dL and patient is unable to swallow or has mental status changes. [facility] glucagon (GLUCAGEN DIAGNOSTIC KIT) injection 1 mg 2020-10 04:52: 43 Yes 1mg 1 mg, Intramuscu lar, PRN, Starting on 09/04/21 at 2252, Until Discontinu ed, MACI, Blood Glucose < or = 70 mg/dL and patient is unable to swallow or has mental changes. [facility] dextrose 50 % in water (D50W) injection 25 mL 2020-10 04:52: 43 Yes 25mL 25 mL, Slow IV Push, PRN, Starting on 09/04/21 at 2252, Until Discontinu ed, MACI, Blood Glucose < or = 70 mg/dL and patient is unable to swallow or has mental status changes. [facility] ondansetron (ZOFRAN (PF)) injection 4 mg 2020-10 04:52: 32 Yes 4mg 4 mg, Slow IV Push, Q6HPRN, Starting on 09/04/21 at 2252, Until Discontinu ed, Routine, Nausea and Vomiting (N/V) [facility] ondansetron (ZOFRAN (PF)) injection 4 mg 2020-10 04:52: 32 Yes 4mg 4 mg, Slow IV Push, Q6HPRN, Starting on 09/04/21 at 2252, Until Discontinu ed, Routine, Nausea and Vomiting (N/V) [facility] morpHINE injection 4 mg 2020-10 04:52: 26 09-05 17:07 :07 No 4mg 4 mg, Slow IV Push, Q4HPRN, Starting on 09/04/21 at 2252, Until 09/05/21 at 1107, Routine, Pain (scale 7-10) [facility] FENTanyl PF (SUBLIMAZE (PF)) injection 50 mcg 2020-10 04:30: 00 09-05 03:31 :00 No 50ug 50 mcg, Slow IV Push, ONCE, 1 dose, On 09/04/21 at 2230, Routine [facility] NaCl 0.9% (NS) IV infusion 1,000 mL 2020-10 04:30: 00 09-05 05:49 :35 No 1000mL at 999 mL/hr, Intravenou s, CONTINUOUS , Starting on 09/04/21 at 2230, Until 09/04/21 at 2349, Routine [facility] iohexol (OMNIPAQUE 350 BULK-100 mL) injection 120 mL 2020-10 04:15: 00 09-05 03:55 :00 No [id number] 120mL 120 mL, Intravenou s, ONCE, 1 dose, On 09/04/21 at 2215, Routine [facility] ketorolac (TORADOL) injection 30 mg 2020-10 03:45: 00 09-05 02:39 :00 No 30mg 30 mg, Slow IV Push, ONCE, 1 dose, On 09/04/21 at 2145, Routine
adjunct psychology faculty member approving Restricted medication : JARRETT NAVARRO [facility] FENTanyl PF (SUBLIMAZE (PF)) injection 50 mcg 2020-10 03:12: 00 09-05 03:13 :00 No 50ug 50 mcg, Slow IV Push, ONCE, 1 dose, On 09/04/21 at 2115, STAT [facility] metFORMIN HCl ER metFORMIN HCl ER No metFORMIN HCl ER Contrave Contrave No Contrave metFORMIN HCl metFORMIN HCl No metFORMIN HCl metFORMIN HCl ER metFORMIN HCl ER No metFORMIN HCl ER Contrave Contrave No Contrave metFORMIN HCl metFORMIN HCl No metFORMIN HCl metFORMIN HCl ER metFORMIN HCl ER No metFORMIN HCl ER Contrave Contrave No Contrave metFORMIN HCl metFORMIN HCl No metFORMIN HCl metFORMIN HCl ER metFORMIN HCl ER No metFORMIN HCl ER Contrave Contrave No Contrave metFORMIN HCl metFORMIN HCl No metFORMIN HCl metFORMIN HCl metFORMIN HCl No metFORMIN HCl Contrave Contrave No Contrave metFORMIN HCl metFORMIN HCl No metFORMIN HCl Contrave Contrave No Contrave metFORMIN HCl metFORMIN HCl No metFORMIN HCl Contrave Contrave No Contrave metFORMIN HCl metFORMIN HCl No metFORMIN HCl Contrave Contrave No Contrave metFORMIN HCl metFORMIN HCl No metFORMIN HCl Contrave Contrave No Contrave metFORMIN HCl metFORMIN HCl No metFORMIN HCl Contrave Contrave No Contrave metFORMIN HCl metFORMIN HCl No metFORMIN HCl Contrave Contrave No Contrave metFORMIN HCl metFORMIN HCl No metFORMIN HCl Contrave Contrave No Contrave metFORMIN HCl metFORMIN HCl No metFORMIN HCl Contrave Contrave No Contrave metFORMIN HCl ER metFORMIN HCl ER No metFORMIN HCl ER Contrave Contrave No Contrave metFORMIN HCl metFORMIN HCl No metFORMIN HCl Immunizations Ordered Immunization Name Filled Immunization Name Date Status Comments Source MODERNA COVID-19 MRNA VACCINATION 2021-07-26 00:00:00 [facility] SARS-COV-2 COVID-19 MODERNA VACCINE 2021-07-26 00:00:00 Completed [facility] SARS-COV-2 COVID-19 MODERNA VACCINE 2021-07-26 00:00:00 Completed [facility] SARS-COV-2 COVID-19 MODERNA VACCINE 2021-07-26 00:00:00 Completed [facility] SARS-COV-2 COVID-19 MODERNA VACCINE 2021-07-26 00:00:00 Completed [facility] SARS-COV-2 COVID-19 MODERNA VACCINE 2021-07-26 00:00:00 Completed [facility] SARS-COV-2 COVID-19 MODERNA VACCINE 2021-07-26 00:00:00 Completed [facility] SARS-COV-2 COVID-19 MODERNA VACCINE 2021-07-26 00:00:00 Completed [facility] SARS-COV-2 COVID-19 MODERNA VACCINE 2021-07-26 00:00:00 Completed [facility] Influenza Virus Vaccine 2021-07-21 00:00:00 Completed [facility] Influenza Virus Vaccine 2021-07-21 00:00:00 Completed [facility] Influenza Virus Vaccine 2021-07-21 00:00:00 Completed [facility] Influenza Virus Vaccine 2021-07-21 00:00:00 Completed [facility] Influenza Virus Vaccine 2021-07-21 00:00:00 Completed [facility] Influenza Virus Vaccine 2021-07-21 00:00:00 Completed [facility] Influenza Virus Vaccine 2021-07-21 00:00:00 Completed [facility] Influenza Virus Vaccine 2021-07-21 00:00:00 Completed [facility] MODERNA COVID-19 MRNA VACCINATION 2020-10-21 00:00:00 Completed [facility] MODERNA COVID-19 MRNA VACCINATION 2020-09-23 00:00:00 Completed [facility] Influenza Virus Vaccine Quad IM 3+ YRS 2020-07-13 00:00:00 Completed [facility] Influenza Virus Vaccine Quad IM 3+ YRS 2020-07-13 00:00:00 Completed [facility] Influenza Virus Vaccine Quad IM 3+ YRS 2020-07-13 00:00:00 Completed [facility] Influenza Virus Vaccine Quad IM 3+ YRS 2020-07-13 00:00:00 Completed [facility] Influenza Virus Vaccine Quad IM 3+ YRS 2020-07-13 00:00:00 Completed [facility] Influenza Virus Vaccine Quad IM 3+ YRS 2020-07-13 00:00:00 Completed [facility] Influenza Virus Vaccine Quad IM 3+ YRS 2020-07-13 00:00:00 Completed [facility] Influenza Virus Vaccine Quad IM 3+ YRS 2020-07-13 00:00:00 Completed [facility] Zoster Vaccine Recombinant 2020-06-03 00:00:00 Completed [facility] Zoster Vaccine Recombinant 2020-06-03 00:00:00 Completed [facility] Zoster Vaccine Recombinant 2020-06-03 00:00:00 Completed [facility] Zoster Vaccine Recombinant 2020-06-03 00:00:00 Completed [facility] Zoster Vaccine Recombinant 2020-06-03 00:00:00 Completed [facility] Zoster Vaccine Recombinant 2020-06-03 00:00:00 Completed [facility] Zoster Vaccine Recombinant 2020-06-03 00:00:00 Completed [facility] Zoster Vaccine Recombinant 2020-06-03 00:00:00 Completed [facility] Influenza Virus Vaccine (3+ yrs) 2018-07-17 00:00:00 Completed [facility] Influenza Virus Vaccine (3+ yrs) 2018-07-17 00:00:00 Completed [facility] Influenza Virus Vaccine (3+ yrs) 2018-07-17 00:00:00 Completed [facility] Influenza Virus Vaccine (3+ yrs) 2018-07-17 00:00:00 Completed [facility] Influenza Virus Vaccine (3+ yrs) 2018-07-17 00:00:00 Completed [facility] Influenza Virus Vaccine (3+ yrs) 2018-07-17 00:00:00 Completed [facility] Influenza Virus Vaccine (3+ yrs) 2018-07-17 00:00:00 Completed [facility] Influenza Virus Vaccine (3+ yrs) 2018-07-17 00:00:00 Completed [facility] Influenza Virus Vaccine Quad IM 3+ YRS 2017-06-07 00:00:00 Completed [facility] Influenza Virus Vaccine Quad IM 3+ YRS 2017-06-07 00:00:00 Completed [facility] Influenza Virus Vaccine Quad IM 3+ YRS 2017-06-07 00:00:00 Completed [facility] Influenza Virus Vaccine Quad IM 3+ YRS 2017-06-07 00:00:00 Completed [facility] Influenza Virus Vaccine Quad IM 3+ YRS 2017-06-07 00:00:00 Completed [facility] Influenza Virus Vaccine Quad IM 3+ YRS 2017-06-07 00:00:00 Completed [facility] Influenza Virus Vaccine Quad IM 3+ YRS 2017-06-07 00:00:00 Completed [facility] Influenza Virus Vaccine Quad IM 3+ YRS 2017-06-07 00:00:00 Completed [facility] Influenza Virus Vaccine Quad IM Multi-dose 6+ MO 2016-07-15 00:00:00 Completed [facility] Influenza Virus Vaccine Quad IM Multi-dose 6+ MO 2016-07-15 00:00:00 Completed [facility] Influenza Virus Vaccine Quad IM Multi-dose 6+ MO 2016-07-15 00:00:00 Completed [facility] Influenza Virus Vaccine Quad IM Multi-dose 6+ MO 2016-07-15 00:00:00 Completed [facility] Influenza Virus Vaccine Quad IM Multi-dose 6+ MO 2016-07-15 00:00:00 Completed [facility] Influenza Virus Vaccine Quad IM Multi-dose 6+ MO 2016-07-15 00:00:00 Completed [facility] Influenza Virus Vaccine Quad IM Multi-dose 6+ MO 2016-07-15 00:00:00 Completed [facility] Influenza Virus Vaccine Quad IM Multi-dose 6+ MO 2016-07-15 00:00:00 Completed [facility] Tetanus Toxoid, Absorbed 2014-08-02 00:00:00 Completed [facility] Tetanus Toxoid, Absorbed 2014-08-02 00:00:00 Completed [facility] Tetanus Toxoid, Absorbed 2014-08-02 00:00:00 Completed [facility] Tetanus Toxoid, Absorbed 2014-08-02 00:00:00 Completed [facility] Tetanus Toxoid, Absorbed 2014-08-02 00:00:00 Completed [facility] Tetanus Toxoid, Absorbed 2014-08-02 00:00:00 Completed [facility] Tetanus Toxoid, Absorbed 2014-08-02 00:00:00 Completed [facility] Tetanus Toxoid, Absorbed 2014-08-02 00:00:00 Completed [facility] Influenza Virus Vaccine (3+ yrs) 2014-07-14 00:00:00 Completed [facility] Influenza Virus Vaccine (3+ yrs) 2014-07-14 00:00:00 Completed [facility] Influenza Virus Vaccine (3+ yrs) 2014-07-14 00:00:00 Completed [facility] Influenza Virus Vaccine (3+ yrs) 2014-07-14 00:00:00 Completed [facility] Influenza Virus Vaccine (3+ yrs) 2014-07-14 00:00:00 Completed [facility] Influenza Virus Vaccine (3+ yrs) 2014-07-14 00:00:00 Completed [facility] Influenza Virus Vaccine (3+ yrs) 2014-07-14 00:00:00 Completed [facility] Influenza Virus Vaccine (3+ yrs) 2014-07-14 00:00:00 Completed [facility] Influenza Virus Vaccine (3+ yrs) 2013-07-05 00:00:00 Completed [facility] Influenza Virus Vaccine (3+ yrs) 2013-07-05 00:00:00 Completed [facility] Influenza Virus Vaccine (3+ yrs) 2013-07-05 00:00:00 Completed [facility] Influenza Virus Vaccine (3+ yrs) 2013-07-05 00:00:00 Completed [facility] Influenza Virus Vaccine (3+ yrs) 2013-07-05 00:00:00 Completed [facility] Influenza Virus Vaccine (3+ yrs) 2013-07-05 00:00:00 Completed [facility] Influenza Virus Vaccine (3+ yrs) 2013-07-05 00:00:00 Completed [facility] Influenza Virus Vaccine (3+ yrs) 2013-07-05 00:00:00 Completed [facility] Influenza Virus Vaccine (3+ yrs) 2012-07-04 00:00:00 Completed [facility] Influenza Virus Vaccine (3+ yrs) 2012-07-04 00:00:00 Completed [facility] Influenza Virus Vaccine (3+ yrs) 2012-07-04 00:00:00 Completed [facility] Influenza Virus Vaccine (3+ yrs) 2012-07-04 00:00:00 Completed [facility] Influenza Virus Vaccine (3+ yrs) 2012-07-04 00:00:00 Completed [facility] Influenza Virus Vaccine (3+ yrs) 2012-07-04 00:00:00 Completed [facility] Influenza Virus Vaccine (3+ yrs) 2012-07-04 00:00:00 Completed [facility] Influenza Virus Vaccine (3+ yrs) 2012-07-04 00:00:00 Completed [facility] Influenza Virus Vaccine (3+ yrs) 2011-07-06 00:00:00 Completed [facility] Influenza Virus Vaccine (3+ yrs) 2011-07-06 00:00:00 Completed [facility] Influenza Virus Vaccine (3+ yrs) 2011-07-06 00:00:00 Completed [facility] Influenza Virus Vaccine (3+ yrs) 2011-07-06 00:00:00 Completed [facility] Influenza Virus Vaccine (3+ yrs) 2011-07-06 00:00:00 Completed [facility] Influenza Virus Vaccine (3+ yrs) 2011-07-06 00:00:00 Completed [facility] Influenza Virus Vaccine (3+ yrs) 2011-07-06 00:00:00 Completed [facility] Influenza Virus Vaccine (3+ yrs) 2011-07-06 00:00:00 Completed [facility] TDAP 2011-04-29 00:00:00 Completed [facility] TDAP 2011-04-29 00:00:00 Completed [facility] TDAP 2011-04-29 00:00:00 Completed [facility] TDAP 2011-04-29 00:00:00 Completed [facility] TDAP 2011-04-29 00:00:00 Completed [facility] TDAP 2011-04-29 00:00:00 Completed [facility] TDAP 2011-04-29 00:00:00 Completed [facility] TDAP 2011-04-29 00:00:00 Completed [facility] Influenza Virus Vaccine (3+ yrs) 2010-07-05 00:00:00 Completed [facility] Influenza Virus Vaccine (3+ yrs) 2010-07-05 00:00:00 Completed [facility] Influenza Virus Vaccine (3+ yrs) 2010-07-05 00:00:00 Completed [facility] Influenza Virus Vaccine (3+ yrs) 2010-07-05 00:00:00 Completed [facility] Influenza Virus Vaccine (3+ yrs) 2010-07-05 00:00:00 Completed [facility] Influenza Virus Vaccine (3+ yrs) 2010-07-05 00:00:00 Completed [facility] Influenza Virus Vaccine (3+ yrs) 2010-07-05 00:00:00 Completed [facility] Influenza Virus Vaccine (3+ yrs) 2010-07-05 00:00:00 Completed [facility] H1n1 Vaccine 2009-07-28 00:00:00 Completed [facility] H1n1 Vaccine 2009-07-28 00:00:00 Completed [facility] H1n1 Vaccine 2009-07-28 00:00:00 Completed [facility] H1n1 Vaccine 2009-07-28 00:00:00 Completed [facility] H1n1 Vaccine 2009-07-28 00:00:00 Completed [facility] H1n1 Vaccine 2009-07-28 00:00:00 Completed [facility] H1n1 Vaccine 2009-07-28 00:00:00 Completed [facility] H1n1 Vaccine 2009-07-28 00:00:00 Completed [facility] Influenza Virus Vaccine (3+ yrs) 2009-07-08 00:00:00 Completed [facility] Influenza Virus Vaccine (3+ yrs) 2009-07-08 00:00:00 Completed [facility] Influenza Virus Vaccine (3+ yrs) 2009-07-08 00:00:00 Completed [facility] Influenza Virus Vaccine (3+ yrs) 2009-07-08 00:00:00 Completed [facility] Influenza Virus Vaccine (3+ yrs) 2009-07-08 00:00:00 Completed [facility] Influenza Virus Vaccine (3+ yrs) 2009-07-08 00:00:00 Completed [facility] Influenza Virus Vaccine (3+ yrs) 2009-07-08 00:00:00 Completed [facility] Influenza Virus Vaccine (3+ yrs) 2009-07-08 00:00:00 Completed [facility] H1n1 Vaccine Unknown Completed [facility] Influenza Virus Vaccine Unknown Completed [facility] Influenza Virus Vaccine (3+ yrs) Unknown Completed [facility] Influenza Virus Vaccine (3+ yrs) Unknown Completed [facility] Influenza Virus Vaccine (3+ yrs) Unknown Completed [facility] Influenza Virus Vaccine (3+ yrs) Unknown Completed [facility] Influenza Virus Vaccine (3+ yrs) Unknown Completed [facility] Influenza Virus Vaccine Quad IM Multi-dose 6+ MO Unknown Completed [facility] Influenza Virus Vaccine (3+ yrs) Unknown Completed [facility] Influenza Virus Vaccine Quad IM 3+ YRS Unknown Completed [facility] Influenza Virus Vaccine Quad IM 3+ YRS Unknown Completed [facility] Influenza Virus Vaccine (3+ yrs) Unknown Completed [facility] SARS-COV-2 COVID-19 MODERNA 12+ YRS VACCINE Unknown Completed [facility] TDAP Unknown Completed [facility] Tetanus Toxoid, Absorbed Unknown Completed [facility] Zoster Vaccine Recombinant Unknown Completed [facility] Vital Signs Vital Name Observation Time Observation Value Comments Ozzie sawyer height 2023-04-06 08:00:00 66 [in_i] Commo n [facility] weight 2023-04-06 08:00:00 173 [lb_av] Comm on [facility] temperature 2023-04-06 08:00:00 97.6 [degF] Com [facility] bmi 2023-04-06 08:00:00 27.92 kg/m2 Comm on [facility] blood pressure systolic 2023-04-06 08:00:00 136 mm[Hg] [facility] blood pressure diastolic 2023-04-06 08:00:00 76 mm[Hg] [facility] height 2022-11-24 10:00:00 66 [in_i] Commo n [facility] weight 2022-11-24 10:00:00 172 [lb_av] Comm on [facility] temperature 2022-11-24 10:00:00 98.2 [degF] Com [facility] bmi 2022-11-24 10:00:00 27.76 kg/m2 Comm on [facility] blood pressure systolic 2022-11-24 10:00:00 132 mm[Hg] [facility] blood pressure diastolic 2022-11-24 10:00:00 69 mm[Hg] [facility] height 2022-11-17 13:45:00 66 [in_i] Commo n [facility] weight 2022-11-17 13:45:00 170 [lb_av] Comm on [facility] temperature 2022-11-17 13:45:00 97.2 [degF] Com [facility] bmi 2022-11-17 13:45:00 27.44 kg/m2 Comm on [facility] blood pressure systolic 2022-11-17 13:45:00 130 mm[Hg] [facility] diastolic 2022-11-17 13:45:00 74 mm[Hg] [facility] height 2022-11-11 08:00:00 66 [in_i] Commo n [facility] weight 2022-11-11 08:00:00 171 [lb_av] Comm on [facility] temperature 2022-11-11 08:00:00 97.8 [degF] Com [facility] bmi 2022-11-11 08:00:00 27.6 kg/m2 Commo n [facility] blood pressure systolic 2022-11-11 08:00:00 128 mm[Hg] [facility] blood pressure diastolic 2022-11-11 08:00:00 77 mm[Hg] [facility] height 2022-07-28 08:00:00 66 [in_i] Commo n [facility] weight 2022-07-28 08:00:00 170 [lb_av] Comm on [facility] temperature 2022-07-28 08:00:00 97.3 [degF] Com [facility] bmi 2022-07-28 08:00:00 27.44 kg/m2 Comm on [facility] blood pressure systolic 2022-07-28 08:00:00 122 mm[Hg] [facility] blood pressure diastolic 2022-07-28 08:00:00 72 mm[Hg] [facility] height 2022-06-16 13:15:00 66 [in_i] Commo n [facility] weight 2022-06-16 13:15:00 170 [lb_av] Comm on [facility] temperature 2022-06-16 13:15:00 98.0 [degF] Com [facility] bmi 2022-06-16 13:15:00 27.44 kg/m2 Comm on [facility] blood pressure systolic 2022-06-16 13:15:00 120 mm[Hg] [facility] blood pressure diastolic 2022-06-16 13:15:00 80 mm[Hg] [facility] height 2022-06-02 08:30:00 66 [in_i] Commo n [facility] weight 2022-06-02 08:30:00 170 [lb_av] Comm on [facility] temperature 2022-06-02 08:30:00 97.3 [degF] Com mon [facility] bmi 2022-06-02 08:30:00 27.44 kg/m2 Comm on [facility] blood pressure systolic 2022-06-02 08:30:00 116 mm[Hg] [facility] blood pressure diastolic 2022-06-02 08:30:00 75 mm[Hg] [facility] Systolic blood pressure 2021-09-06 17:14:00 125 mm[Hg] [facility] Diastolic blood pressure 2021-09-06 17:14:00 57 mm[Hg] [facility] Heart rate 2021-09-06 17:14:00 80 /min [facility] Body temperature 2021-09-06 17:14:00 36.94 Michelle [facility] Respiratory rate 2021-09-06 17:14:00 18 /min [facility] Oxygen saturation in Arterial blood by Pulse oximetry 2021-09-06 17:14:00 94 /min [facility] Body weight 2021-09-06 09:44:00 86.002 kg [facility] BMI 2021-09-06 09:44:00 29.70 kg/m2 [facility] Body height 2021-09-05 02:21:00 170.2 cm [facility] Heart rate 2021-09-05 17:05:00 99 /min [facility] Respiratory rate 2021-09-05 17:05:00 12 /min [facility] Oxygen saturation in Arterial blood by Pulse oximetry 2021-09-05 17:05:00 95 /min [facility] Systolic blood pressure 2021-09-05 17:04:00 113 mm[Hg] [facility] Diastolic blood pressure 2021-09-05 17:04:00 62 mm[Hg] [facility] Body temperature 2021-09-05 16:53:00 37.17 Michelle [facility] Body weight 2021-09-05 10:28:00 85.276 kg [facility] BMI 2021-09-05 10:28:00 29.70 kg/m2 [facility] Body height 2021-09-05 02:21:00 170.2 cm [facility] Systolic blood pressure 2021-09-06 17:14:00 125 mm[Hg] [facility] Diastolic blood pressure 2021-09-06 17:14:00 57 mm[Hg] [facility] Heart rate 2021-09-06 17:14:00 80 /min [facility] Body temperature 2021-09-06 17:14:00 36.94 Michelle [facility] Respiratory rate 2021-09-06 17:14:00 18 /min [facility] Oxygen saturation in Arterial blood by Pulse oximetry 2021-09-06 17:14:00 94 /min [facility] Body weight 2021-09-06 09:44:00 86.002 kg [facility] BMI 2021-09-06 09:44:00 29.70 kg/m2 [facility] Body height 2021-09-05 02:21:00 170.2 cm [facility] Procedures Procedure Date / Time Performed Performing Clinician Source [id number] 2021-10-18 00:00:00 SALVADOR [facility] [id number] 2021-10-18 00:00:00 HAAER [facility] [id number] 2021-10-18 00:00:00 HAAER [facility] POCT GLUCOSE (AUTOMATED) 2021-09-06 17:46:00 Asif Martinez [facility] POCT GLUCOSE (AUTOMATED) 2021-09-06 17:46:00 Asif Martinez [facility] POCT GLUCOSE (AUTOMATED) 2021-09-06 17:46:00 Asif Martinez [facility] BASIC METABOLIC PANEL (NA, K, CL, CO2, GLUCOSE, BUN, CREATININE, CA) 2021-09-06 10:45:00 Jacky Casillas [facility] CBC WITH DIFF 2021-09-06 10:45:00 [facility]y [facility] CBC WITH DIFF 2021-09-06 10:45:[address] [facility] BASIC METABOLIC PANEL (NA, K, CL, CO2, GLUCOSE, BUN, CREATININE, CA) 2021-09-06 10:45:00 Jacky Casillas [facility] BASIC METABOLIC PANEL (NA, K, CL, CO2, GLUCOSE, BUN, CREATININE, CA) 2021-09-06 10:45:00 Jacky Casillas [facility] CBC WITH DIFF 2021-09-06 10:45:00 Jacky Casillas [facility] POCT GLUCOSE (AUTOMATED) 2021-09-06 05:29:00 Asif Martinez [facility] POCT GLUCOSE (AUTOMATED) 2021-09-06 05:29:00 Asif Martinez [facility] POCT GLUCOSE (AUTOMATED) 2021-09-06 05:29:00 Asif Martinez [facility] POCT GLUCOSE (AUTOMATED) 2021-09-06 00:10:00 Thomas Navarro [facility] POCT GLUCOSE (AUTOMATED) 2021-09-06 00:10:00 Thomas Navarro [facility] POCT GLUCOSE (AUTOMATED) 2021-09-06 00:10:00 Thomas Navarro [facility] LAPAROSCOPIC APPENDECTOMY 2021-09-05 14:45:00 [place] , [facility] LAPAROSCOPIC APPENDECTOMY 2021-09-05 14:45:00 [facility] LAPAROSCOPIC APPENDECTOMY 2021-09-05 14:45:00 Any Grant [facility] CBC WITH DIFF 2021-09-05 12:31:00 Braydon [facility] CBC WITH DIFF 2021-09-05 12:31:00 [facility] CBC WITH DIFF 2021-09-05 12:31:00 [facility]don [facility] POCT GLUCOSE (AUTOMATED) 2021-09-05 11:37:00 Thomas Navarro [facility] POCT GLUCOSE (AUTOMATED) 2021-09-05 11:37:00 Thomas Navarro [facility] POCT GLUCOSE (AUTOMATED) 2021-09-05 11:37:00 Thomas Navarro [facility] VITAMIN B12, LEVEL 2021-09-05 10:21:00 Braydon Perkins [facility] FOLATE 2021-09-05 10:21:00 Braydon Pekrins [facility] BASIC METABOLIC PANEL (NA, K, CL, CO2, GLUCOSE, BUN, CREATININE, CA) 2021-09-05 10:21:00 Braydon Perkins [facility] BASIC METABOLIC PANEL (NA, K, CL, CO2, GLUCOSE, BUN, CREATININE, CA) 2021-09-05 10:21:00 Braydon Perkins [facility] VITAMIN B12, LEVEL 2021-09-05 10:21:00 Braydon Perkins [facility] FOLATE 2021-09-05 10:21:00 Braydon Perkins [facility] VITAMIN B12, LEVEL 2021-09-05 10:21:00 Braydon Perkins [facility] FOLATE 2021-09-05 10:21:00 Braydon Perkins [facility] BASIC METABOLIC PANEL (NA, K, CL, CO2, GLUCOSE, BUN, CREATININE, CA) 2021-09-05 10:21:00 Braydon Perkins [facility] POCT GLUCOSE (AUTOMATED) 2021-09-05 06:24:00 Thomas Navarro [facility] POCT GLUCOSE (AUTOMATED) 2021-09-05 06:24:00 Thomas Navarro [facility] POCT GLUCOSE (AUTOMATED) 2021-09-05 06:24:00 Thomas Navarro [facility] GLYCOSYLATED HEMOGLOBIN (A1C) 2021-09-05 05:28:00 Braydon Perkins [facility] GLYCOSYLATED HEMOGLOBIN (A1C) 2021-09-05 05:28:00 Braydon Perkins [facility] GLYCOSYLATED HEMOGLOBIN (A1C) 2021-09-05 05:28:00 Braydon Perkins [facility] CT ABDOMEN PELVIS W CONTRAST 2021-09-05 04:02:16 Jarrett Navarro [facility] CT ABDOMEN PELVIS W CONTRAST 2021-09-05 04:02:16 Jarrett Navarro [facility] CT ABDOMEN PELVIS W CONTRAST 2021-09-05 04:02:16 Jarrett Navarro [facility] COVID-19 (ID NOW RAPID TESTING) 2021-09-05 04:01:00 Jarrett Navarro [facility] LAB ONLY COVID INTERPRETATION 2021-09-05 04:01:00 Jarrett Navarro [facility] COVID-19 (ID NOW RAPID TESTING) 2021-09-05 04:01:00 Jarrett Navarro [facility] LAB ONLY COVID INTERPRETATION 2021-09-05 04:01:00 Jarrett Navarro [facility] COVID-19 (ID NOW RAPID TESTING) 2021-09-05 04:01:00 Jarrett Navarro [facility] LAB ONLY COVID INTERPRETATION 2021-09-05 04:01:00 Jarrett Navarro [facility] LIPASE 2021-09-05 02:23:00 Jarrett Navarro [facility] MAGNESIUM 2021-09-05 02:23:00 Braydon Perkins [facility] COMP. METABOLIC PANEL ([id number]) 2021-09-05 02:23:00 Jarrett Navarro [facility] CBC WITH DIFF 2021-09-05 02:23:00 Jarrett Navarro [facility] URINALYSIS 2021-09-05 02:23:00 Jarrett Navarro [facility] COMP. METABOLIC PANEL ([id number]) 2021-09-05 02:23:00 Jarrett Navarro [facility] CBC WITH DIFF 2021-09-05 02:23:00 Jarrett Navarro [facility] LIPASE 2021-09-05 02:23:00 Jarrett Navarro [facility] URINALYSIS 2021-09-05 02:23:00 Jarrett Navarro [facility] MAGNESIUM 2021-09-05 02:23:00 Braydon Perkins [facility] LIPASE 2021-09-05 02:23:00 Jarrett Navarro [facility] MAGNESIUM 2021-09-05 02:23:00 Braydon Perkins [facility] COMP. METABOLIC PANEL ([id number]) 2021-09-05 02:23:00 Jarrett Navarro [facility] CBC WITH DIFF 2021-09-05 02:23:00 Jarrett Navarro [facility] URINALYSIS 2021-09-05 02:23:00 Jarrett Navarro [facility] NOTICE OF PRIVACY PRACTICES 2021-09-05 02:13:46 Doctor Unassigned, [facility] NOTICE OF PRIVACY PRACTICES 2021-09-05 02:13:46 Doctor Unassigned, [facility] NOTICE OF PRIVACY PRACTICES 2021-09-05 02:13:46 Doctor Unassigned, [facility] CONSENT/REFUSAL FOR DIAGNOSIS AND TREATMENT 2021-09-05 02:13:08 Doctor Unassigned, [facility] CONSENT/REFUSAL FOR DIAGNOSIS AND TREATMENT 2021-09-05 02:13:08 Doctor Unassigned, [facility] CONSENT/REFUSAL FOR DIAGNOSIS AND TREATMENT 2021-09-05 02:13:08 Doctor Unassigned, [facility] Plan of Care Planned Activity Planned Date Details Comments Source Future Scheduled Test 2023-05-08 06:18:31 BREAST CANCER SCREENING [code = BREAST CANCER SCREENING] [facility] Future Scheduled Test 2023-05-08 06:18:31 Screening for malignant neoplasm of colon (procedure) [code = 949528682] [facility] Future Scheduled Test 2023-05-08 06:18:31 Screening for malignant neoplasm of colon (procedure) [code = 759702146] [facility] Future Scheduled Test 2023-05-08 06:18:31 SHINGLES VACCINES (2 of 2) [code = SHINGLES VACCINES (2 of 2)] [facility] Future Scheduled Test 2023-05-08 06:18:31 COVID-19 VACCINE (4 - Moderna series) [code = COVID-19 VACCINE (4 - Moderna series)] [facility] Future Scheduled Test 2023-05-08 06:18:31 INFLUENZA VACCINE [code = INFLUENZA VACCINE] [facility] Future Scheduled Test 2023-05-08 06:18:31 Screening for malignant neoplasm of colon (procedure) [code = 022435230] [facility] Future Scheduled Test 2023-05-08 06:18:31 Screening for malignant neoplasm of colon (procedure) [code = 858221570] [facility] Future Scheduled Test 2023-05-08 06:18:31 Screening for malignant neoplasm of colon (procedure) [code = 590784662] [facility] Future Scheduled Test 2023-05-08 06:18:31 Hepatitis C screening (procedure) [code = 822291222] [facility] Future Scheduled Test 2023-05-08 06:18:31 Screening for malignant neoplasm of cervix (procedure) [code = 404661544] [facility] Encounters Start Date/Time End Date/Time Encounter Type Admission Type Attending Clinicians Care Facility Care Department Encounter ID Source 2022-11-10 15:58:01 Outpatient Brunilda Cleaning [facility] [id number] [facility] 2022-09-28 14:29:03 Outpatient Brunilda Cleaning [facility] [id number] [facility] 2022-06-13 12:11:02 Outpatient Brunilda Cleaning [facility] [id number] [facility] 2022-06-02 08:31:03 Outpatient Brunilda Cleaning [facility] [id number] [facility] 2023-08-02 00:00:00 2023-08-02 00:00:00 Outpatient GC_GCBZW_Ka diyala_S [facility] [id number] [facility] 2023-04-06 00:00:00 2023-04-06 00:00:00 OFFICE VISIT ESTAB PT LEVEL 3 [facility] [id number] [facility] 2022-11-29 00:00:00 2022-11-29 00:00:00 (TEL) [facility] [id number] [facility] 2022-11-24 00:00:00 2022-11-24 00:00:00 OFFICE VISIT ESTAB PT LEVEL 3 [facility] [id number] [facility] 2022-11-17 00:00:00 2022-11-17 00:00:00 OFFICE VISIT ESTAB PT LEVEL 3 [facility] [id number] [facility] 2022-11-11 00:00:00 2022-11-11 00:00:00 OFFICE VISIT ESTAB PT LEVEL 3 [facility] [id number] [facility] 2022-07-28 00:00:00 2022-07-28 00:00:00 NON-BILLAB LE VISIT [facility] [id number] [facility] 2022-06-27 00:00:00 2022-06-27 00:00:00 (TEL) [facility] [id number] [facility] 2022-06-21 00:00:00 2022-06-21 00:00:00 (TEL) [facility] [id number] [facility] 2022-06-20 00:00:00 2022-06-20 00:00:00 (TEL) [facility] [id number] [facility] 2022-06-16 00:00:00 2022-06-16 00:00:00 OFFICE VISIT EST PT LEVEL 3 [facility] [id number] [facility] 2022-06-02 00:00:00 2022-06-02 00:00:00 OFFICE VISIT NEW PT LEVEL 3 [facility] [id number] [facility] 2022-06-02 00:00:00 2022-06-02 00:00:00 (TEL) [facility] [id number] [facility] 2021-10-18 12:28:00 2021-10-21 13:47:00 Inpatient Thao Hawthorne [facility]01 [id number] [facility] 2021-10-12 00:00:00 2021-10-12 00:00:00 Outpatient THAO KULKARNI [facility] [id number] [address] [place] [address] 2021-10-06 00:00:00 2021-10-06 00:00:00 Telephone Any Grant [facility] .0.114 350.1.13.10 4.2.7.2.686 [id number] [facility] 2021-10-06 00:00:00 2021-10-06 00:00:00 Multidisci plinary Conference Any Grant [facility] .840.114 350.1.13.10 4.2.7.2.686 [id number] [facility] 2021-09-29 00:00:00 2021-09-29 00:00:00 Patient Secure Msg Any Grant [facility] 1.840.114 350.1.13.10 4.2.7.2.686 [id number] [facility] 2021-09-17 00:00:00 2021-09-17 00:00:00 Telephone [facility] 1.2.840.114 350.1.13.10 4.2.7.2.686 [id number] [facility] 2021-09-07 00:00:00 2021-09-07 00:00:00 Transition of Care CrespoJacquie ott 1.2.840.114 350.1.13.10 4.2.7.2.686 [id number] [facility] 2021-09-04 20:13:00 2021-09-06 13:14:00 Hospital Encounter Jarrett Navarro David Abdullah, Yaman 1.2.840.1 [id number] 3.104.2.7 [id number] [facility] 2021-09-04 20:13:00 2021-09-06 13:14:00 Inpatient X ASIF MARTINEZ [facility] [id number] [facility] 2021-09-06 00:00:00 2021-09-06 00:00:00 Telephone Any Grant [facility] 1.2.840.114 350.1.13.10 4.2.7.2.686 [id number] [facility] 2021-09-05 09:00:00 2021-09-05 11:09:00 Surgery Any Grant [facility] 1.2.840.114 350.1.13.10 4.2.7.2.686 [id number] [facility] 2021-09-05 09:00:00 2021-09-05 10:52:00 Anesthesia Event Justin Cadena Brian 1.2.840.1 [id number] 3.104.2.7 .[id number] .[id number] [facility] 2021-09-04 00:00:00 2021-09-04 00:00:00 Travel 1.2.840.1 11067.1.1 3.104.2.7 .[id number] .8 1.2.840.114 350.1.13.10 4.2.7.3.698 [id number] [facility] Results Test Description Test Time Test Comments Results Result Co mments Source BASIC METABOLIC [id number] 06:06:00* Test Item Value Reference Range Interpretation Comme nts SODIUM (test code = NA) 142 mEq/L 135-145 N POTASSIUM (test code = K) 3.8 mEq/L 3.5-5.0 N CHLORIDE (test code = CL) 106 mEq/L 100-115 N CARBON DIOXIDE (test code = CO2) 28 mEq/L 22-31 N ANION GAP (test code = GAP) 11.40 10-20 N GLUCOSE (test code = GLU) 103 mg/dL 65-110 N BLOOD UREA NITROGEN (test co de = BUN) 6 mg/dL 7-18 L CREATININE (test code = CREAT) 0.6 mg/dL 0.5-1.0 N CALCIUM (test code = CA) 7.9 mg/dL 8.4-10.2 L GLOMERULAR FILTRATION RATE ( test code = GFR) 105 ml/min >60 N CBC W/AUTO [id number] 05:50:00* Test Item Value Reference Range Interpretation Comme nts WHITE BLOOD CELL (test code = WBC) [...] pg 27.3-33.9 N MEAN CELL HGB CONCETRATION ( test code = MCHC) 32.0 gm/dL 32.0-34.2 N RED CELL DISTRIBUTION WIDTH (test code = RDW) 12.5 % 12.2-16.3 N PLATELET COUNT (test code = PLT) 173 K/mm3 134-363 N MEAN PLATELET VOLUME (test c ode = MPV) 11.7 fL 9.2-12.7 N NEUTROPHIL % (test code = NT%) 71.8 [...] = BA#) 0.0 K/mm3 RBC MORPHOLOGY REQUIRED (pa t code = RBCM) NORMAL NORMAL PLATELET MORPHOLOGY REQUIRED (test code = PLTMR) NORMAL NORMAL BASIC METABOLIC [id number] 05:30:00* Test Item Value Reference Range Interpretation Comme nts SODIUM (test code = NA) 137 mEq/L 135-145 N POTASSIUM (test code = K) 3.8 mEq/L 3.5-5.0 N CHLORIDE (test code = CL) 103 mEq/L 100-115 N CARBON DIOXIDE (test code = CO2) 27 mEq/L 22-31 N ANION GAP (test code = GAP) 10.90 10-20 N GLUCOSE (test code = GLU) 98 mg/dL 65-110 N BLOOD UREA NITROGEN (test co de = BUN) 5 mg/dL 7-18 L GLOMERULAR FILTRATION RATE ( test code = GFR) 105 ml/min >60 N CREATININE (test code = CREAT) 0.6 mg/dL 0.5-1.0 N CALCIUM (test code = CA) 7.6 mg/dL 8.4-10.2 L CBC W/AUTO [id number] 05:18:00* Test Item Value Reference Range Interpretation Comme nts WHITE BLOOD CELL (test code = WBC) [...] pg 27.3-33.9 H MEAN CELL HGB CONCETRATION ( test code = MCHC) 32.2 gm/dL 32.0-34.2 N RED CELL DISTRIBUTION WIDTH (test code = RDW) 12.7 % 12.2-16.3 N PLATELET COUNT (test code = PLT) 168 K/mm3 134-363 N MEAN PLATELET VOLUME (test c ode = MPV) 11.4 fL 9.2-12.7 N NEUTROPHIL % (test code = NT%) 71.1 [...] = BA#) 0.0 K/mm3 RBC MORPHOLOGY REQUIRED (pa t code = RBCM) NORMAL NORMAL PLATELET MORPHOLOGY REQUIRED (test code = PLTMR) NORMAL NORMAL BASIC METABOLIC [id number] 05:12:00* Test Item Value Reference Range Interpretation Comme nts SODIUM (test code = NA) 139 mEq/L 135-145 N POTASSIUM (test code = K) 4.2 mEq/L 3.5-5.0 N CHLORIDE (test code = CL) 104 mEq/L 100-115 N CARBON DIOXIDE (test code = CO2) 27 mEq/L 22-31 N ANION GAP (test code = GAP) 12.30 10-20 N GLUCOSE (test code = GLU) 107 mg/dL 65-110 N BLOOD UREA NITROGEN (test co de = BUN) 9 mg/dL 7-18 N GLOMERULAR FILTRATION RATE ( test code = GFR) 65 ml/min >60 N CREATININE (test code = CREAT) 0.9 mg/dL 0.5-1.0 N CALCIUM (test code = CA) 7.8 mg/dL 8.4-10.2 L CBC W/AUTO [id number] 04:52:00* Test Item Value Reference Range Interpretation Comme nts WHITE BLOOD CELL (test code = WBC) [...] pg 27.3-33.9 H MEAN CELL HGB CONCETRATION ( test code = MCHC) 33.1 gm/dL 32.0-34.2 N RED CELL DISTRIBUTION WIDTH (test code = RDW) 12.8 % 12.2-16.3 N PLATELET COUNT (test code = PLT) 211 K/mm3 134-363 N MEAN PLATELET VOLUME (test c ode = MPV) 11.2 fL 9.2-12.7 N NEUTROPHIL % (test code = NT%) 76.2 [...] = BA#) 0.0 K/mm3 RBC MORPHOLOGY REQUIRED (pa t code = RBCM) NORMAL NORMAL PLATELET MORPHOLOGY REQUIRED (test code = PLTMR) NORMAL NORMAL COVID 19 Asymptomatic IH [id number] 18:59:00* Test Item Value Reference Range Interpretation Comme nts COVID 19 Asymptomatic IH AG (test code = COVNONPUIAG) NEGATIVE NEGATIVE This test has be en authorized only for the detection ofproteins from SARS-CoV-2, not for any other viruses orpathogens. Negative results should be treated as presumptive andconfirmed with a molecular assay, if necessary for patientmanagement. Negative results do not rule out COVID-19 andshould not be used as the sole basis for treatment orpatient management decisions, including infection controldecisions. Negative results should be considered in thecontext of a patient's recent exposures, history and thepresence of clinical signs and symptoms consistent withCOVID-19. This test has not been FDA cleared or approved; the test hasbeen authorized by FDA under an Emergency Use Authorization(EUA) for use by laboratories certified under the CLIA thatmeet the requirements to perform moderate, high or waivedcomplexity tests. This test is authorized for use at thePoint of Care (POC), i.e., in patient care settingsoperating under a CLIA Certificate of Waiver, Certificate ofCompliance, or Certificate of Accreditation. This test is only authorized for the duration of thedeclaration that circumstances exist justifying theauthorization of emergency use of in vitro diagnostic testsfor detection and/or diagnosis of COVID-19 under Qclsuqm370(b)(1) of the Act, 21 U.S.C. 360bbb-3(b)(1), unless theauthorization is terminated or revoked sooner. COMPREHENSIVE METABOLIC [id number] 15:49:00* Test Item Value Reference Range Interpretation Comme nts SODIUM (test code = NA) 141 mEq/L 135-145 N POTASSIUM (test code = K) 4.1 mEq/L 3.5-5.0 N CHLORIDE (test code = CL) 104 mEq/L 100-115 N CARBON DIOXIDE (test code = CO2) 30 mEq/L 22-31 N ANION GAP (test code = GAP) 10.90 10-20 N GLUCOSE (test code = GLU) 92 mg/dL 65-110 N BLOOD UREA NITROGEN (test co de = BUN) 13 mg/dL 7-18 N GLOMERULAR FILTRATION RATE ( test code = GFR) 88 ml/min >60 N CREATININE (test code = CREAT) 0.7 mg/dL 0.5-1.0 N TOTAL PROTEIN (test code = PROT) 6.8 gm/dL 6.3-8.2 N ALBUMIN (test code = ALB) 3.9 gm/dL 3.4-4.8 N CALCIUM (test code = CA) 8.9 mg/dL 8.4-10.2 N BILIRUBIN TOTAL (test code = BILT) 0.3 mg/dL 0.2-1.0 N SGOT/AST (test code = AST) 18 units/L 15-37 N SGPT/ALT (test code = ALT) 21 units/L 12-78 N ALKALINE PHOSPHATASE TOTAL ( test code = ALKP) 121 units/L 46-116 H HCG SERUM [id number] 15:39:00* Test Item Value Reference Range Interpretation Comme [facility] HCG SERUM QUAL (test code = HCGQL) NEGATIVE PROTHROMBIN [id number] 15:27:00* Test Item Value Reference Range Interpretation Comme [facility] PROTHROMBIN TIME PATIENT (te st code = PTP) 10.3 secs 10.1-12.3 N THROMBOPLASTIN TIME [id number] 15:27:00* Test Item Value Reference Range Interpretation Comme [facility] THROMBOPLASTIN TIME PARTIAL (test code = PTT) 29.9 secs 22-38 N CBC W/AUTO [id number] 15:24:00* Test Item Value Reference Range Interpretation Comme nts WHITE BLOOD CELL (test code = WBC) [...] pg 27.3-33.9 N MEAN CELL HGB CONCETRATION ( test code = MCHC) 32.7 gm/dL 32.0-34.2 N RED CELL DISTRIBUTION WIDTH (test code = RDW) 12.5 % 12.2-16.3 N PLATELET COUNT (test code = PLT) 210 K/mm3 134-363 N MEAN PLATELET VOLUME (test c ode = MPV) 11.5 fL 9.2-12.7 N NEUTROPHIL % (test code = NT%) 49.0 [...] = BA#) 0.0 K/mm3 RBC MORPHOLOGY REQUIRED (pa t code = RBCM) NORMAL NORMAL PLATELET MORPHOLOGY REQUIRED (test code = PLTMR) NORMAL NORMAL POCT GLUCOSE (AUTOMATED)2021-09-06 17:48:10* Test Item Value Reference Range Interpretation Comme [facility] POCT GLU (test code = 7894812780) 111 mg/dL 70-110 H Lab Interpretation (test cod e = 36089-3) Abnormal [facility] GLUCOSE (AUTOMATED)2021-09-06 17:48:10* Test Item Value Reference Range Interpretation Comme nts POCT GLU (test code = 7788385408) 111 mg/dL 70-110 H Lab Interpretation (test cod e = 65071-3) Abnormal [facility] GLUCOSE (AUTOMATED)2021-09-06 17:48:10* Test Item Value Reference Range Interpretation Comme nts POCT GLU (test code = 4767522497) 111 mg/dL 70-110 H Lab Interpretation (test cod e = 01180-3) Abnormal [facility] WITH [id number] 12:34:27* Test Item Value Reference Range Interpretation Comme nts WBC (test code = 6690-2) See_Comment H [Automated message] The system which generated this result transmitted reference range: 4.30 - 11.10 10*3/?L. The reference range was not used to interpret this result as normal/abnormal. RBC (test code = 789-8) See_Comment L [Automated message] The system which generated this result transmitted reference range: 3.93 - 5.25 10*6/?L. The reference range was not used to interpret this result as normal/abnormal. HGB (test code = 718-7) 10.2 g/dL 11.6-15.0 L HCT (test code = 4544-3) 31.2 % 35.7-45.2 L MCV (test code = 787-2) 106.5 fL 80.6-95.5 H MCH (test code = 785-6) 34.8 pg 25.9-32.8 H MCHC (test code = 786-4) 32.7 g/dL 31.6-35.1 RDW-SD (test code = 37484-3) 51.0 fL 39.0-49.9 H RDW-CV (test code = 788-0) 13.0 % 12.0-15.5 PLT (test code = 777-3) See_Comment L [Automated message] The system which generated this result transmitted reference range: 166 - 358 10*3/?L. The reference range was not used to interpret this result as normal/abnormal. MPV (test code = 32265-0) 11.8 fL 9.5-12.9 NRBC/100 WBC (test code = 8258473068) See_Comment [Automated message] The system which generated this result transmitted reference range: 0.0 - 10.0 /100 WBCs. The reference range was not used to interpret this result as normal/abnormal. NRBC x10^3 (test code = 4225222429) <0.01 See_Comment [Automated message] The system which generated this result transmitted reference range: 10*3/?L. The reference range was not used to interpret this result as normal/abnormal. GRAN MAT (NEUT) % (test code = 770-8) 86.9 % IMM GRAN % (test code = 7081852920) 1.60 % LYMPH % (test code = 736-9) 7.9 % MONO % (test code = 5905-5) 3.1 % EOS % (test code = 713-8) 0.2 % BASO % (test code = 706-2) 0.3 % GRAN MAT x10^3(ANC) (test code = 3213764702) 10.44 10*3/uL 1.88-7.09 H IMM GRAN x10^3 (test code = 1351548089) 0.19 10*3/uL 0.00-0.06 H LYMPH x10^3 (test code = 731-0) 0.95 10*3/uL 1.32-3.29 L MONO x10^3 (test code = 742-7) 0.37 10*3/uL 0.33-0.92 EOS x10^3 (test code = 711-2) <0.03 0.03-0.39 L BASO x10^3 (test code = 704-7) 0.03 10*3/uL 0.01-0.07 Lab Interpretation (test code = 98099-5) Abnormal [facility] WITH [id number] 12:34:27* Test Item Value Reference Range Interpretation Comme nts WBC (test code = 6690-2) See_Comment H [Automated message] The system which generated this result transmitted reference range: 4.30 - 11.10 10*3/?L. The reference range was not used to interpret this result as normal/abnormal. RBC (test code = 789-8) See_Comment L [Automated message] The system which generated this result transmitted reference range: 3.93 - 5.25 10*6/?L. The reference range was not used to interpret this result as normal/abnormal. HGB (test code = 718-7) 10.2 g/dL 11.6-15.0 L HCT (test code = 4544-3) 31.2 % 35.7-45.2 L MCV (test code = 787-2) 106.5 fL 80.6-95.5 H MCH (test code = 785-6) 34.8 pg 25.9-32.8 H MCHC (test code = 786-4) 32.7 g/dL 31.6-35.1 RDW-SD (test code = 12517-1) 51.0 fL 39.0-49.9 H RDW-CV (test code = 788-0) 13.0 % 12.0-15.5 PLT (test code = 777-3) See_Comment L [Automated message] The system which generated this result transmitted reference range: 166 - 358 10*3/?L. The reference range was not used to interpret this result as normal/abnormal. MPV (test code = 49231-2) 11.8 fL 9.5-12.9 NRBC/100 WBC (test code = 6167793574) See_Comment [Automated message] The system which generated this result transmitted reference range: 0.0 - 10.0 /100 WBCs. The reference range was not used to interpret this result as normal/abnormal. NRBC x10^3 (test code = [id number]) <0.01 See_Comment [Automated message] The system which generated this result transmitted reference range: 10*3/?L. The reference range was not used to interpret this result as normal/abnormal. GRAN MAT (NEUT) % (test code = 770-8) 86.9 % IMM GRAN % (test code = [id number]) 1.60 % LYMPH % (test code = 736-9) 7.9 % MONO % (test code = 5905-5) 3.1 % EOS % (test code = 713-8) 0.2 % BASO % (test code = 706-2) 0.3 % GRAN MAT x10^3(ANC) (test code = [id number]) 10.44 10*3/uL 1.88-7.09 H IMM GRAN x10^3 (test code = [id number]) 0.19 10*3/uL 0.00-0.06 H LYMPH x10^3 (test code = 731-0) 0.95 10*3/uL 1.32-3.29 L MONO x10^3 (test code = 742-7) 0.37 10*3/uL 0.33-0.92 EOS x10^3 (test code = 711-2) <0.03 0.03-0.39 L BASO x10^3 (test code = 704-7) 0.03 10*3/uL 0.01-0.07 Lab Interpretation (test code = 56228-6) Abnormal [facility] WITH [id number] 12:34:27* Test Item Value Reference Range Interpretation Comme nts WBC (test code = 6690-2) See_Comment H [Automated message] The system which generated this result transmitted reference range: 4.30 - 11.10 10*3/?L. The reference range was not used to interpret this result as normal/abnormal. RBC (test code = 789-8) See_Comment L [Automated message] The system which generated this result transmitted reference range: 3.93 - 5.25 10*6/?L. The reference range was not used to interpret this result as normal/abnormal. HGB (test code = 718-7) 10.2 g/dL 11.6-15.0 L HCT (test code = 4544-3) 31.2 % 35.7-45.2 L MCV (test code = 787-2) 106.5 fL 80.6-95.5 H MCH (test code = 785-6) 34.8 pg 25.9-32.8 H MCHC (test code = 786-4) 32.7 g/dL 31.6-35.1 RDW-SD (test code = 23489-8) 51.0 fL 39.0-49.9 H RDW-CV (test code = 788-0) 13.0 % 12.0-15.5 PLT (test code = 777-3) See_Comment L [Automated message] The system which generated this result transmitted reference range: 166 - 358 10*3/?L. The reference range was not used to interpret this result as normal/abnormal. MPV (test code = 82343-2) 11.8 fL 9.5-12.9 NRBC/100 WBC (test code = 2015961640) See_Comment [Automated message] The system which generated this result transmitted reference range: 0.0 - 10.0 /100 WBCs. The reference range was not used to interpret this result as normal/abnormal. NRBC x10^3 (test code = 0923554306) <0.01 See_Comment [Automated message] The system which generated this result transmitted reference range: 10*3/?L. The reference range was not used to interpret this result as normal/abnormal. GRAN MAT (NEUT) % (test code = 770-8) 86.9 % IMM GRAN % (test code = 5570882317) 1.60 % LYMPH % (test code = 736-9) 7.9 % MONO % (test code = 5905-5) 3.1 % EOS % (test code = 713-8) 0.2 % BASO % (test code = 706-2) 0.3 % GRAN MAT x10^3(ANC) (test code = 0751805718) 10.44 10*3/uL 1.88-7.09 H IMM GRAN x10^3 (test code = 8009083286) 0.19 10*3/uL 0.00-0.06 H LYMPH x10^3 (test code = 731-0) 0.95 10*3/uL 1.32-3.29 L MONO x10^3 (test code = 742-7) 0.37 10*3/uL 0.33-0.92 EOS x10^3 (test code = 711-2) <0.03 0.03-0.39 L BASO x10^3 (test code = 704-7) 0.03 10*3/uL 0.01-0.07 Lab Interpretation (test code = 67219-9) Abnormal [facility] METABOLIC PANEL (NA, K, CL, CO2, GLUCOSE, BUN, CREATININE, CA)2021-09-06 11:57:18* Test Item Value Reference Range Interpretation Comme nts NA (test code = 4598284262) 135 mmol/L 135-145 K (test code = 8905829209) 3.4 mmol/L 3.5-5.0 L CL (test code = 5448621657) 105 mmol/L 98-108 CO2 TOTAL (test code = 0976282871) 26 mmol/L 23-31 AGAP (test code = 1359044105) 2-16 BUN (test code = 9101712491) 12 mg/dL 7-23 GLUCOSE (test code = 3012547571) 101 mg/dL 70-110 CREATININE (test code = 3837164451) 0.68 mg/dL 0.50-1.04 CALCIUM (test code = 7611543065) 8.3 mg/dL 8.6-10.6 L eGFR (test code = 5154294348) mL/min/1.73m2 NEAL (test code = NEAL) Association of [...] or abnormalities in imaging tests). Lab Interpretation (test code = 11419-1) Abnormal [facility] METABOLIC PANEL (NA, K, CL, CO2, GLUCOSE, BUN, CREATININE, CA)2021-09-06 11:57:18* Test Item Value Reference Range Interpretation Comme nts NA (test code = 1094464057) 135 mmol/L 135-145 K (test code = 8988494624) 3.4 mmol/L 3.5-5.0 L CL (test code = 1119540043) 105 mmol/L 98-108 CO2 TOTAL (test code = 7211317052) 26 mmol/L 23-31 AGAP (test code = 2499384512) 2-16 BUN (test code = 3195972499) 12 mg/dL 7-23 GLUCOSE (test code = 0367001535) 101 mg/dL 70-110 CREATININE (test code = 0682231965) 0.68 mg/dL 0.50-1.04 CALCIUM (test code = 0103256110) 8.3 mg/dL 8.6-10.6 L eGFR (test code = 3831315286) mL/min/1.73m2 NEAL (test code = NEAL) Association of [...] or abnormalities in imaging tests). Lab Interpretation (test code = 33204-6) Abnormal [facility] METABOLIC PANEL (NA, K, CL, CO2, GLUCOSE, BUN, CREATININE, CA)2021-09-06 11:57:18* Test Item Value Reference Range Interpretation Comme nts NA (test code = 1501387828) 135 mmol/L 135-145 K (test code = 4239559867) 3.4 mmol/L 3.5-5.0 L CL (test code = 4615684010) 105 mmol/L 98-108 CO2 TOTAL (test code = 2698384387) 26 mmol/L 23-31 AGAP (test code = 9780777162) 2-16 BUN (test code = 8422523571) 12 mg/dL 7-23 GLUCOSE (test code = 4000351841) 101 mg/dL 70-110 CREATININE (test code = 0216847817) 0.68 mg/dL 0.50-1.04 CALCIUM (test code = 2174385453) 8.3 mg/dL 8.6-10.6 L eGFR (test code = 7446890884) mL/min/1.73m2 NEAL (test code = NEAL) Association of [...] or abnormalities in imaging tests). Lab Interpretation (test code = 83939-2) Abnormal [facility] GLUCOSE (AUTOMATED)2021-09-06 06:20:39* Test Item Value Reference Range Interpretation Comme nts POCT GLU (test code = 0709354598) 140 mg/dL 70-110 H Lab Interpretation (test cod e = 58153-3) Abnormal [facility] GLUCOSE (AUTOMATED)2021-09-06 06:20:39* Test Item Value Reference Range Interpretation Comme nts POCT GLU (test code = 3416348157) 140 mg/dL 70-110 H Lab Interpretation (test cod e = 67210-0) Abnormal [facility] GLUCOSE (AUTOMATED)2021-09-06 00:12:38* Test Item Value Reference Range Interpretation Comme nts POCT GLU (test code = 4997682467) 156 mg/dL 70-110 H Lab Interpretation (test cod e = 62158-4) Abnormal [facility] GLUCOSE (AUTOMATED)2021-09-06 00:12:38* Test Item Value Reference Range Interpretation Comme nts POCT GLU (test code = 5993688301) 156 mg/dL 70-110 H Lab Interpretation (test cod e = 08842-7) [facility] [id number] 22:15:38* Test Item Value Reference Range Interpretation Comme nts VIT B12 (test code = 7787028778) 506 pg/mL 240-930 NEAL (test code = NEAL) Biotin has been reported to cause a positive bias, interpret results relative to patient's use of biotin. Lab Interpretation (test code = 41892-1) [facility], [id number] 22:15:38* Test Item Value Reference Range Interpretation Comme nts VIT B12 (test code = 2054240321) 506 pg/mL 240-930 NEAL (test code = NEAL) Biotin has been reported to cause a positive bias, interpret results relative to patient's use of biotin. Lab Interpretation (test code = 63488-9) [facility], [id number] 22:15:38* Test Item Value Reference Range Interpretation Comme nts VIT B12 (test code = 0204050131) 506 pg/mL 240-930 NEAL (test code = NEAL) Biotin has been reported to cause a positive bias, interpret results relative to patient's use of biotin. Lab Interpretation (test code = 26957-9) [facility]2021-12-05 18:09:03* Test Item Value Reference Range Interpretation Comme nts FOLATE SER (test code = 8232875515) 5.5 ng/mL 3.0-20.0 Biotin has been reported to cause a positive bias, interpret results relative to patient's use of biotin. Lab Interpretation (test code = 78786-5) [facility]2021-12-05 18:09:03* Test Item Value Reference Range Interpretation Comme nts FOLATE SER (test code = 1341054883) 5.5 ng/mL 3.0-20.0 Biotin has been reported to cause a positive bias, interpret results relative to patient's use of biotin. Lab Interpretation (test code = 18762-4) [facility]2021-12-05 18:09:03* Test Item Value Reference Range Interpretation Comme nts FOLATE SER (test code = 3147972275) 5.5 ng/mL 3.0-20.0 Biotin has been reported to cause a positive bias, interpret results relative to patient's use of biotin. Lab Interpretation (test code = 52621-7) [facility] with Yqqmmkzssuxl9407-25-24 15:18:16* Test Item Value Reference Range Interpretation Comme nts WBC (test code = 6690-2) See_Comment L [Automated messa ge] The system which generated this result transmitted reference range: 4.30 - 11.10 10*3/?L. The reference range was not used to interpret this result as normal/abnormal. RBC (test code = 789-8) See_Comment L [Automated messa ge] The system which generated this result transmitted reference range: 3.93 - 5.25 10*6/?L. The reference range was not used to interpret this result as normal/abnormal. HGB (test code = 718-7) 12.2 g/dL 11.6-15.0 HCT (test code = 4544-3) 36.2 % 35.7-45.2 MCV (test code = 787-2) 102.8 fL 80.6-95.5 H MCH (test code = 785-6) 34.7 pg 25.9-32.8 H MCHC (test code = 786-4) 33.7 g/dL 31.6-35.1 RDW-SD (test code = 17392-4) 46.8 fL 39.0-49.9 RDW-CV (test code = 788-0) 12.5 % 12.0-15.5 PLT (test code = 777-3) See_Comment L [Automated messa ge] The system which generated this result transmitted reference range: 166 - 358 10*3/?L. The reference range was not used to interpret this result as normal/abnormal. MPV (test code = 77825-2) 11.5 fL 9.5-12.9 NRBC/100 WBC (test code = 6271165110) See_Comment [Automated [place] ssage] The system which generated this result transmitted reference range: 0.0 - 10.0 /100 WBCs. The reference range was not used to interpret this result as normal/abnormal. NRBC x10^3 (test code = 2130519538) <0.01 See_Comment [Automated messa ge] The system which generated this result transmitted reference range: 10*3/?L. The reference range was not used to interpret this result as normal/abnormal. SEG % (test code = 00403-5) 62 % 33-76 BAND % (test code = 11111-6) 33 % 0-1 H LYMPH % (test code = 43240-3) 5 % 14-54 L ANC (test code = 753-4) 2.60 10*3/uL 1.88-7.09 Lab Interpretation (test code = 75828-3) Abnormal [facility] with Igsazmxjztbg3094-97-92 15:18:16* Test Item Value Reference Range Interpretation Comme nts WBC (test code = 6690-2) See_Comment L [Automated messa ge] The system which generated this result transmitted reference range: 4.30 - 11.10 10*3/?L. The reference range was not used to interpret this result as normal/abnormal. RBC (test code = 789-8) See_Comment L [Automated messa ge] The system which generated this result transmitted reference range: 3.93 - 5.25 10*6/?L. The reference range was not used to interpret this result as normal/abnormal. HGB (test code = 718-7) 12.2 g/dL 11.6-15.0 HCT (test code = 4544-3) 36.2 % 35.7-45.2 MCV (test code = 787-2) 102.8 fL 80.6-95.5 H MCH (test code = 785-6) 34.7 pg 25.9-32.8 H MCHC (test code = 786-4) 33.7 g/dL 31.6-35.1 RDW-SD (test code = 72008-6) 46.8 fL 39.0-49.9 RDW-CV (test code = 788-0) 12.5 % 12.0-15.5 PLT (test code = 777-3) See_Comment L [Automated NOMAD GOODSa ge] The system which generated this result transmitted reference range: 166 - 358 10*3/?L. The reference range was not used to interpret this result as normal/abnormal. MPV (test code = 07523-5) 11.5 fL 9.5-12.9 NRBC/100 WBC (test code = 8619248726) See_Comment [Automated [place] ssage] The system which generated this result transmitted reference range: 0.0 - 10.0 /100 WBCs. The reference range was not used to interpret this result as normal/abnormal. NRBC x10^3 (test code = 1362720964) <0.01 See_Comment [Automated NOMAD GOODSa ge] The system which generated this result transmitted reference range: 10*3/?L. The reference range was not used to interpret this result as normal/abnormal. SEG % (test code = 79198-1) 62 % 33-76 BAND % (test code = 59637-1) 33 % 0-1 H LYMPH % (test code = 81872-5) 5 % 14-54 L ANC (test code = 753-4) 2.60 10*3/uL 1.88-7.09 Lab Interpretation (test code = 22780-4) [facility], K, CL, CO2, GLUCOSE, BUN, CREATININE, CA)2021-09-05 11:47:06* Test Item Value Reference Range Interpretation Comme nts NA (test code = 9364638530) 137 mmol/L 135-145 K (test code = 8799978699) 3.4 mmol/L 3.5-5.0 L CL (test code = 0324422591) 106 mmol/L 98-108 CO2 TOTAL (test code = 6329097129) 26 mmol/L 23-31 AGAP (test code = 0541676926) 2-16 BUN (test code = 0672126802) 7 mg/dL 7-23 GLUCOSE (test code = 5714910537) 107 mg/dL 70-110 CREATININE (test code = 8685541632) 0.74 mg/dL 0.50-1.04 CALCIUM (test code = 5157390915) 8.8 mg/dL 8.6-10.6 eGFR (test code = 0298015676) mL/min/1.73m2 NEAL (test code = ENAL) Association of Glomerular Filtration Rate (GFR) and [...] or abnormalities in imaging tests). Lab Interpretation (test code = 00119-0) Abnormal [facility] Metabolic Panel (NA, K, CL, CO2, GLUCOSE, BUN, CREATININE, CA)2021-09-05 11:47:06* Test Item Value Reference Range Interpretation Comme nts NA (test code = 1174437784) 137 mmol/L 135-145 K (test code = 0187982973) 3.4 mmol/L 3.5-5.0 L CL (test code = 2147361866) 106 mmol/L 98-108 CO2 TOTAL (test code = 3266063992) 26 mmol/L 23-31 AGAP (test code = 7372177155) 2-16 BUN (test code = 0485613798) 7 mg/dL 7-23 GLUCOSE (test code = 4075024854) 107 mg/dL 70-110 CREATININE (test code = 8381735038) 0.74 mg/dL 0.50-1.04 CALCIUM (test code = 8835126466) 8.8 mg/dL 8.6-10.6 eGFR (test code = 8672303942) mL/min/1.73m2 NEAL (test code = NEAL) Association of [...] or abnormalities in imaging tests). Lab Interpretation (test code = 66223-5) Abnormal [facility] GLUCOSE (AUTOMATED)2021-09-05 11:45:45* Test Item Value Reference Range Interpretation Comme nts POCT GLU (test code = 5540093995) 114 mg/dL 70-110 H Lab Interpretation (test cod e = 95067-5) Abnormal [facility] GLUCOSE (AUTOMATED)2021-09-05 11:45:45* Test Item Value Reference Range Interpretation Comme nts POCT GLU (test code = 6991045831) 114 mg/dL 70-110 H Lab Interpretation (test cod e = 93707-3) Abnormal [facility] GLUCOSE (AUTOMATED)2021-09-05 06:30:29* Test Item Value Reference Range Interpretation Comme nts POCT GLU (test code = 3718025612) 116 mg/dL 70-110 H Lab Interpretation (test cod e = 45877-8) Abnormal [facility] GLUCOSE (AUTOMATED)2021-09-05 06:30:29* Test Item Value Reference Range Interpretation Comme nts POCT GLU (test code = 1716664102) 116 mg/dL 70-110 H Lab Interpretation (test cod e = 98945-9) Abnormal [facility] Gdtrt5941-21-34 06:17:06* Test Item Value Reference Range Interpretation Comme nts MAGNESIUM (test code = 5804379307) 1.6 mg/dL 1.7-2.4 L Lab Interpretation (test cod e = 21028-4) Abnormal [facility] Rsprr2604-49-63 06:17:06* Test Item Value Reference Range Interpretation Comme nts MAGNESIUM (test code = 0194452504) 1.6 mg/dL 1.7-2.4 L Lab Interpretation (test cod e = 01122-8) [facility] Keitq9497-33-89 06:17:06* Test Item Value Reference Range Interpretation Comme nts MAGNESIUM (test code = 5829346833) 1.6 mg/dL 1.7-2.4 L Lab Interpretation (test cod e = 02788-7) [facility] Hem[facility] (A1C)2021-09-05 06:01:43* Test Item Value Reference Range Interpretation Comme nts HGB A1C (test code = 4548-4) 5.3 % 4.0-5.7 NEAL (test code = NEAL) Reference RangesNormal: <5.7%Prediabetes: 5.7 - 6.4%Diabetes: > 6.5% Lab Interpretation (test code = 77345-4) [facility] Hem[facility] (A1C)2021-09-05 06:01:43* Test Item Value Reference Range Interpretation Comme nts HGB A1C (test code = 4548-4) 5.3 % 4.0-5.7 NEAL (test code = NEAL) Reference RangesNormal: <5.7%Prediabetes: 5.7 - 6.4%Diabetes: > 6.5% Lab Interpretation (test code = 22580-3) [facility] Hem[facility] (A1C)2021-09-05 06:01:43* Test Item Value Reference Range Interpretation Comme nts HGB A1C (test code = 4548-4) 5.3 % 4.0-5.7 NEAL (test code = NEAL) Reference RangesNormal: <5.7%Prediabetes: 5.7 - 6.4%Diabetes: > 6.5% Lab Interpretation (test code = 42592-5) [facility] Zzsmh1599-82-60 02:45:18* Test Item Value Reference Range Interpretation Comme nts NA (test code = 1182675872) 135 mmol/L 135-145 K (test code = 7584400275) 3.9 mmol/L 3.5-5.0 CL (test code = 4177554397) 104 mmol/L 98-108 CO2 TOTAL (test code = 4395693380) 23 mmol/L 23-31 AGAP (test code = 0430382646) 2-16 BUN (test code = 1599754039) 9 mg/dL 7-23 GLUCOSE (test code = 7152238349) 135 mg/dL 70-110 H CREATININE (test code = 8592487612) 0.62 mg/dL 0.50-1.04 TOTAL BILI (test code = 9643045206) 0.9 mg/dL 0.1-1.1 CALCIUM (test code = 5760823768) 9.9 mg/dL 8.6-10.6 T PROTEIN (test code = 9302285185) 7.4 g/dL 6.3-8.2 ALBUMIN (test code = 6850602095) 4.5 g/dL 3.5-5.0 ALK PHOS (test code = 0284322860) 97 U/L 34-122 ALTv (test code = 1742-6) 19 U/L 5-35 AST(SGOT) (test code = 7415887625) 31 U/L 13-40 eGFR (test code = 2683346501) mL/min/1.73m2 NEAL (test code = NEAL) Association of [...] or abnormalities in imaging tests). Lab Interpretation (test code = 04768-6) [facility] Aixaf2986-17-84 02:45:18* Test Item Value Reference Range Interpretation Comme nts NA (test code = 0420091143) 135 mmol/L 135-145 K (test code = 3906474033) 3.9 mmol/L 3.5-5.0 CL (test code = 4704688270) 104 mmol/L 98-108 CO2 TOTAL (test code = 3540120517) 23 mmol/L 23-31 AGAP (test code = 7731425369) 2-16 BUN (test code = 6125037504) 9 mg/dL 7-23 GLUCOSE (test code = 8441168446) 135 mg/dL 70-110 H CREATININE (test code = 6798252152) 0.62 mg/dL 0.50-1.04 TOTAL BILI (test code = 8634784421) 0.9 mg/dL 0.1-1.1 CALCIUM (test code = 8534436516) 9.9 mg/dL 8.6-10.6 T PROTEIN (test code = 0489168111) 7.4 g/dL 6.3-8.2 ALBUMIN (test code = 6100249285) 4.5 g/dL 3.5-5.0 ALK PHOS (test code = 2053664132) 97 U/L 34-122 ALTv (test code = 1742-6) 19 U/L 5-35 AST(SGOT) (test code = 5465045205) 31 U/L 13-40 eGFR (test code = 7328142777) mL/min/1.73m2 NEAL (test code = NEAL) Association of [...] or abnormalities in imaging tests). Lab Interpretation (test code = 40840-1) [facility] Hvwog2195-91-40 02:45:18* Test Item Value Reference Range Interpretation Comme nts NA (test code = 8571120946) 135 mmol/L 135-145 K (test code = 3587418805) 3.9 mmol/L 3.5-5.0 CL (test code = 2390334086) 104 mmol/L 98-108 CO2 TOTAL (test code = 0749367309) 23 mmol/L 23-31 AGAP (test code = 0614490969) 2-16 BUN (test code = 8369537864) 9 mg/dL 7-23 GLUCOSE (test code = 2653030573) 135 mg/dL 70-110 H CREATININE (test code = 1127509296) 0.62 mg/dL 0.50-1.04 TOTAL BILI (test code = 3805509568) 0.9 mg/dL 0.1-1.1 CALCIUM (test code = 6114887171) 9.9 mg/dL 8.6-10.6 T PROTEIN (test code = 2164147506) 7.4 g/dL 6.3-8.2 ALBUMIN (test code = 7965287371) 4.5 g/dL 3.5-5.0 ALK PHOS (test code = 6121936507) 97 U/L 34-122 ALTv (test code = 1742-6) 19 U/L 5-35 AST(SGOT) (test code = 0034756869) 31 U/L 13-40 eGFR (test code = 7009493655) mL/min/1.73m2 NEAL (test code = NEAL) Association of [...] or abnormalities in imaging tests). Lab Interpretation (test code = 73506-6) [facility]ale[facility], Swxmu8721-05-92 02:44:37* Test Item Value Reference Range Interpretation Comme nts LIPASE (test code = 2799994851) 147 U/L 0-220 Lab Interpretation (test cod e = 60844-4) [facility], Rmumk9162-27-67 02:44:37* Test Item Value Reference Range Interpretation Comme nts LIPASE (test code = 2097655148) 147 U/L 0-220 Lab Interpretation (test cod e = 33437-2) [facility], Dcgtm2352-04-20 02:44:37* Test Item Value Reference Range Interpretation Comme nts LIPASE (test code = 9527602345) 147 U/L 0-220 Lab Interpretation (test cod e = 11926-2) [facility]aleCBC with Elvupgssyogh7737-84-80 02:38:55* Test Item Value Reference Range Interpretation Comme nts WBC (test code = 6690-2) See_Comment H [Automated message] The system which generated this result transmitted reference range: 4.30 - 11.10 10*3/?L. The reference range was not used to interpret this result as normal/abnormal. RBC (test code = 789-8) See_Comment L [Automated message] The system which generated this result transmitted reference range: 3.93 - 5.25 10*6/?L. The reference range was not used to interpret this result as normal/abnormal. HGB (test code = 718-7) 13.1 g/dL 11.6-15.0 HCT (test code = 4544-3) 38.9 % 35.7-45.2 MCV (test code = 787-2) 103.2 fL 80.6-95.5 H MCH (test code = 785-6) 34.7 pg 25.9-32.8 H MCHC (test code = 786-4) 33.7 g/dL 31.6-35.1 RDW-SD (test code = 34059-6) 46.8 fL 39.0-49.9 RDW-CV (test code = 788-0) 12.5 % 12.0-15.5 PLT (test code = 777-3) See_Comment [Automated message] The system which generated this result transmitted reference range: 166 - 358 10*3/?L. The reference range was not used to interpret this result as normal/abnormal. MPV (test code = 42635-2) 10.8 fL 9.5-12.9 NRBC/100 WBC (test code = 8669156120) See_Comment [Automated message] The system which generated this result transmitted reference range: 0.0 - 10.0 /100 WBCs. The reference range was not used to interpret this result as normal/abnormal. NRBC x10^3 (test code = 3049818775) <0.01 See_Comment [Automated message] The system which generated this result transmitted reference range: 10*3/?L. The reference range was not used to interpret this result as normal/abnormal. GRAN MAT (NEUT) % (test code = 770-8) 80.7 % IMM GRAN % (test code = 7535458049) 0.70 % LYMPH % (test code = 736-9) 12.3 % MONO % (test code = 5905-5) 5.9 % EOS % (test code = 713-8) 0.1 % BASO % (test code = 706-2) 0.3 % GRAN MAT x10^3(ANC) (test code = 9976780221) 12.39 10*3/uL 1.88-7.09 H IMM GRAN x10^3 (test code = 7844709792) 0.10 10*3/uL 0.00-0.06 H LYMPH x10^3 (test code = 731-0) 1.89 10*3/uL 1.32-3.29 MONO x10^3 (test code = 742-7) 0.90 10*3/uL 0.33-0.92 EOS x10^3 (test code = 711-2) <0.03 0.03-0.39 L BASO x10^3 (test code = 704-7) 0.04 10*3/uL 0.01-0.07 Lab Interpretation (test code = 10413-8) Abnormal [facility] with Ufxrcgsjnowu0343-39-92 02:38:55* Test Item Value Reference Range Interpretation Comme nts WBC (test code = 6690-2) See_Comment H [Automated message] The system which generated this result transmitted reference range: 4.30 - 11.10 10*3/?L. The reference range was not used to interpret this result as normal/abnormal. RBC (test code = 789-8) See_Comment L [Automated message] The system which generated this result transmitted reference range: 3.93 - 5.25 10*6/?L. The reference range was not used to interpret this result as normal/abnormal. HGB (test code = 718-7) 13.1 g/dL 11.6-15.0 HCT (test code = 4544-3) 38.9 % 35.7-45.2 MCV (test code = 787-2) 103.2 fL 80.6-95.5 H MCH (test code = 785-6) 34.7 pg 25.9-32.8 H MCHC (test code = 786-4) 33.7 g/dL 31.6-35.1 RDW-SD (test code = 24166-8) 46.8 fL 39.0-49.9 RDW-CV (test code = 788-0) 12.5 % 12.0-15.5 PLT (test code = 777-3) See_Comment [Automated message] The system which generated this result transmitted reference range: 166 - 358 10*3/?L. The reference range was not used to interpret this result as normal/abnormal. MPV (test code = 89413-3) 10.8 fL 9.5-12.9 NRBC/100 WBC (test code = 4199379898) See_Comment [Automated message] The system which generated this result transmitted reference range: 0.0 - 10.0 /100 WBCs. The reference range was not used to interpret this result as normal/abnormal. NRBC x10^3 (test code = [id number]) <0.01 See_Comment [Automated message] The system which generated this result transmitted reference range: 10*3/?L. The reference range was not used to interpret this result as normal/abnormal. GRAN MAT (NEUT) % (test code = 770-8) 80.7 % IMM GRAN % (test code = 8515967200) 0.70 % LYMPH % (test code = 736-9) 12.3 % MONO % (test code = 5905-5) 5.9 % EOS % (test code = 713-8) 0.1 % BASO % (test code = 706-2) 0.3 % GRAN MAT x10^3(ANC) (test code = 0274809688) 12.39 10*3/uL 1.88-7.09 H IMM GRAN x10^3 (test code = 9435580359) 0.10 10*3/uL 0.00-0.06 H LYMPH x10^3 (test code = 731-0) 1.89 10*3/uL 1.32-3.29 MONO x10^3 (test code = 742-7) 0.90 10*3/uL 0.33-0.92 EOS x10^3 (test code = 711-2) <0.03 0.03-0.39 L BASO x10^3 (test code = 704-7) 0.04 10*3/uL 0.01-0.07 Lab Interpretation (test code = 94936-1) Abnormal [facility] Notes Date/Time Note Provider Source 2021-10-21 09:57:00 [id number]- 20T09:57:00 [facility] ([facility])Brief Discharge Note w/Med RecREPORT#:[id number] REPORT STATUS: SignedDATE:10/21/21 TIME: 956 PATIENT: SALLY MILTON UNIT #: [id number]#: [id number] [address] [birth year] AGE: 51 SEX: F ATTEND: Thao Kulkarni GULF [facility] AUTHOR: Cedrick Torres MD * ALL edits or amendments must be made on the electronic/computer document * Med Rec Med RecDischarge meds:Continue taking these medications:metFORMIN XR (GLUCOPHAGE XR) 500 MG TAB.SR.24H 1 TABLET ORAL SIMVASTATIN (ZOCOR) 5 MG TAB 5 MILLIGRAM ORAL BEDTIME. Start taking the following new medications:GABAPENTIN (NEURONTIN) 300 MG CAP 300 MILLIGRAM ORAL THREE TIMES A DAY. Days = 7 Qty = 21 No Refills HYDROcodone/APAP (NORCO 5/325) 1 TAB TAB 1 TABLET ORAL EVERY 4 HOURS NEEDED. as needed for PAIN SCALE 7-10 Days = 3 Qty = 12 No Refills DOCUSATE SODIUM (COLACE) 100 MG CAP 100 MILLIGRAM ORAL DAILY. as needed for constipation Days = 14 Qty = 14 No Refills Instructions: Take 1 tcap at night with a glass of water if not having BMs in 2 days. Call the office if constipation persist. ObjectiveGeneral appearance: alert, awake, oriented, no acute distress, no respiratory distressGI: soft, no rebound, no distention Brief Discharge Note w/Med RecDischarge to: Home/Self CareHospital course:Pt was admitted to have her right colectomy, surgery went well, she recovered well in the floor. she recovered her bowel function quickly and started tolerating diet well. Her urine was noted to be pink after surgery, however, it cleared up quickly without intervention. she reports no urinary problems at the moment. She had an episode of intense pain at the incision site when she was walking, requiring one dose of IV narcotics. I changed her pain regimen to include norco 5/325 and gabapentin, and now her pain is much better controlled. she wants to go home today. I examined her with Dr. Hodges and we discussed the postoperative care in detail, including pain regimen. she understands that Webster should be taking only if the pain is not controlled with non-narcotic medications. she was also instructed to take colace if she does not have a BM in 2 days after discharge. She understood and agreed to proceed. Prescriptions sent. Contact numbers in thechart. Additional Discharge Routines: NoneDiet: Res Diet Low residue diet at 1000 RPT #:[id number] OF REPORT DSDischarge [id number]:57:[id number] ailable for patient [id number]:00:56 [facility] 2021-10-21 09:47:00 [id number] 20T09:47:00 [facility] ([facility])Colorectal Surgery Prog NoteREPORT#:[id number] REPORT STATUS: SignedDATE:10/21/21 TIME: 946 PATIENT: SALLY MILTON UNIT #: [id number]#: [id number] ROOM/BED: 2654-ADOB: [birth year] AGE: 51 SEX: F ATTEND: Thao Kulkarni [facility] AUTHOR: Cedrick Torres MD * ALL edits or amendments must be made on the electronic/computer document * GeneralDate of surgery: 10/18/21Status post:Robotic R colectomy SubjectiveComments:Pt had intense pain yesterday, controlled with gabapentin. she is having BMs, passing flatus, tolerating LRD well. Urinating well, no blood seen in her urine. Objective GeneralVS/I O:Last Documented: Result Date Time Pulse Ox 94 10/21 745 B/P 121/78 10/21 745 B/P Mean 92.1 10/21 745 Temp 36.8 10/21 745 Pulse 75 10/21 745 Resp 19 10/21 745 O2 Delivery Room air 10/21 0334 O2 Flow Rate 10 10/18 1249 24 hour I O ending at 0700: 10/21 0700 10/20 1900 Intake Total 760 1100.00 Output Total 2750 800 Balance -1990 300 Intake, IV 200.00 Intake, Oral 760 900 Output, Urine 2750 800 PATIENT WEIGHT: Weight (lb): 187Weight (oz): 6.29Weight (kg): 85.000 Nutrition assessment:The data set between the solid lines has been imported from the dietitian's assessment. Any exceptions have been noted under Provider comments. BMI Calculated: 30.2Nutrition related diagnosis: Nutrition diagnosis details: Nutrition problem: Nutrition etiology: Nutrition signs and symptoms: Nutrition prescription: Dietitian name: Assessment completed: Provider comments on imported dietitian assessment: Physical ExamGeneral appearance: alert, awake, oriented, no acute distress, pleasant, conversational, mental status normalWound/incision: Location:CDI, minimal induration at suprapubic site. Cardiovascular: normal S1/U7Frwdijlqkot: aerating well, symmetric expansionAbdomen: non-tender, soft, no distention, no guarding (incisions c/d/i) Diagnosis, Assessment PlanFree Text A P:51F s/p robotic r colectomy continue cld for now until ROBFpain controlOOB and ambulatewill keep washburn for now to see if urine clearsmonitor labs 10/21/21. Pt was seen yesterday morning, she was doing well and the plan was to discharge home. The process was started but then her nurse called me saying that the patient had intense pain at the suprapubic incision site and she was given dilaudid for that. I asked the nurse to stop IV narcotics and instead do PO norco, gabapentin and toradol IV PRN. This gave her adequate pain relief. Today the patient is passing flatus and BMs, tolerating diet. She would like to go home today. Pt seen and examined with Dr. Hodges. We will discharge today. Postoperative care discussed in detail, pt understood and agreed. 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 PROCEDURES:1. Laparoscopic-assisted robotic oncologic right hemicolectomy with lymph nodedissection and primary anastomosis.2. Excision of nodule of the right peritoneal region. COLORECTAL SURGEON: Thao Kulkarni MD GENERALIST: Blayne Rodriguez MD ADDITIONAL PROJECT CREW WORKER: Dr. Jeremy Hodges. ANESTHESIA: General endotracheal anesthesia. SPECIMEN: Right colon and lymph nodes. COMPLICATIONS: None. CONDITION: Stable. INDICATIONS AND FINDINGS: The patient presented after undergoing appendectomyand identified a neuroendocrine tumor of the appendix meeting criteria requiringan oncologic right hemicolectomy. The procedure was performed robotically. The procedure was a bit more difficultbecause the patient had adhesions from the recent appendectomy, specifically theright lower quadrant. Additionally, this was an oncologic resection performing extensive dissection ofthe lymph nodes at the level of the periaortic tributaries into theretroperitoneum from the takeoff of the ileocolic artery and the right colicartery at its base. This required extensive dissection into the retroperitoneumwith dissection of the lymph nodes off the feeding vessels. Oncologic resectionwas performed with a lymph node dissection. Surgical fish hatchery assistant was presentand required to complete the procedure in a safe and minimally invasive fashion. The patient tolerated the procedure well without complications. PATIENT NAME: SALLY MILTON PROCEDURE IN DETAIL: The patient was taken to the operating room and afterinduction of anesthesia, placed in supine position. She was prepped and drapedin sterile fashion. Laparoscopic access was gained with a 5-mm Optiview trocarin the patient's left upper quadrant. Additional ports were placed with an 8-mmport in the lower left and lower right and 12-mm suprapubic ports. Explorationwas performed first. There were adhesions and recent surgical inflammatory areaof the right lower quadrant. Lysis of adhesions were required mobilizing theileocolic region. Next, the periaortic dissection was performed off thetributaries of the periaortic area, specifically the ileocolic region. This wasvery difficult tedious dissection. Care was taken as there were vessels deep inthis area warranting control of bleeding with both bipolar device and vesselseal device. The lymph nodes were swept off the base of the artery. The arterywas then high ligated with robotic stapler with a white load. Next,retroperitoneal dissection was further completed all the way to the takeoff ofthe right colic where the middle colic vessel, which was also dissected on thelymph nodes encompassing the lymph nodes and resection. At this point, there was noted to be an abnormal appearing 2 cm lesion in theright peritoneal sidewall. This was resected and sent for frozen, which wasindeterminate, but did not appear to cancer. This was a 2 cm lesion. This wasresected off of the lateral peritoneal wall using sharp dissection and cautery. Next, the right colon was mobilized as was the hepatic flexure. The mesenterycorresponding to the proximal and distal levels of resection were taken downusing the robotic stapler with the 8 blue load proximal and distal resection wasperformed. Next, an intracorporeal isoperistaltic anastomosis was created. Small bowel was aligned in an isoperistaltic fashion to the transverse colon andthe mesenteric enterotomies were made. The common channel of the anastomosiswas completed with firing of the stapler with a blue load. The anastomosis wascompleted in 2 layers with 3-0 V-Loc suture and Vicryl suture. Examinationrevealed intact anastomosis. It was viable with ICG performed. At this juncture, the specimen was extracted by undocking the robot, removingthe 12-mm port putting an Mando after extending it and extracted the specimen. The surgical incision site was closed with #1 PDS suture, the fascia and theskin edges with 4-0 Monocryl and Dermabond. At this juncture, needle, instrument, laparotomy count was performed as correct. Pneumoperitoneum was released. The patient tolerated the procedure well andwas taken to recovery room in good condition. Dictated By: Thao Kulkarni MD WT: OP:F.MARTY/SALVADOR/NTSDD: 10/19/2021 08:22:53DT: 10/19/2021 09:11:42Conf#: [id number]/DID#: [id number] Authenticated by Thao Kulkarni MD On 10/19/2021 02:00:15 PM PATIENT NAME: SALLY MILTON at 0200 PATIENT NAME: SALLY MILTON [id number]:11:[id number] lable for patient [id number]:00:53 [facility] 2021-10-19 07:39:00 [id number] 18T07:39:00 [facility] ([facility])Colorectal Surgery Prog NoteREPORT#:[id number] REPORT STATUS: SignedDATE:10/19/21 TIME: 07 PATIENT: SALLY MILTON UNIT #: [id number]#: [id number] [address] [birth year] AGE: 51 SEX: F ATTEND: Thao Kulkarni [facility] AUTHOR: Sajan Knight DO * ALL edits or amendments must be made on the electronic/computer document * GeneralDate of surgery: 10/18/21Status post:Robotic R colectomy SubjectiveHPI:No events. Feels well. No flatus yet. urine reportedly bloody yesterday but pinkthis morning Review of SystemsAll systems rev neg: except as marked Objective GeneralVS/I O:Last Documented: Result Date Time Pulse Ox 95 10/19 727 B/P 127/79 10/19 727 B/P Mean 95.1 10/19 727 Temp 98.6 10/19 727 Pulse 82 10/19 0728 Resp 16 10/19 0728 O2 Delivery Room air 10/18 1345 O2 [...] scale Measurement Method PATIENT WEIGHT: Weight (lb): 187Weight (oz): 6.29Weight (kg): 85.000 Physical ExamGeneral appearance: alert, awake, oriented, no acute distressCardiovascular: normal S1/X9Izuhxiqixrx: aerating well, symmetric expansionAbdomen: non-tender, soft, no distention, no guarding (incisions c/d/i)Genitourinary - Female Washburn pink Treatment Prophylaxis Treatment ProphylaxisFoley status: day 1 Diagnosis, Assessment PlanFree Text A P:51F s/p robotic r colectomy continue cld for now until ROBFpain controlOOB and ambulatewill keep washburn for now to see if urine clearsmonitor labs at 0745 RPT #:[id number] OF REPORT PRProgress [id number]:39:[id number] able for patient [id number]:45:50 [facility]"
[2023-09-10] MEDS ORDERED: KETOROLAC 30 MG/ML INJ ONE (02:13)
--- NOTE | 2023-09-10 02:40 | EDPHYS ---
Physician Documentation [facility] Name: Sally Anderson Age: 53 yrs Sex: Female : 1970 Arrival Date: 09/10/2023 Time: 01:16 Bed 19 Private MD: ED Physician Joseph Dela Cruz HPI: 09/10 01:52 This 53 yrs old Female presents to ER via Unassigned with complaints of Wrist Injury, rt Wrist Pain. 01:52 Patient presents to the ED with an injury to the left wrist. Patient was lowering a rt ladder at about 6 PM, when it fell, pinching her wrist in between the slats. She reports of bruising, pain, aching nature leading up to the arm. Denies other injury, other acute complaints, symptoms are moderate in severity, no other aggravating or elevating factors.. Historical: - Allergies: 01:57 Bees; pf1 - PMHx: :57 None; pf1 - PSHx: 01:57 Appendectomy; Cholecystectomy; hemicolectomy; left knee scope; uterine ablation; pf1 - Immunization history:: Adult Immunizations up to date, 5 doses of pfizer Last tetanus immunization: < 10 years ago Flu vaccine is up to date. - Social history:: Smoking status: Patient denies any tobacco usage or history of. Patient uses alcohol, only on a social basis. Patient/guardian denies using street drugs. ROS: 01:52 Constitutional: Negative for fever, chills, and weight loss, Cardiovascular: Negative rt for chest pain, palpitations, and edema, Respiratory: Negative for shortness of breath, cough, wheezing, and pleuritic chest pain, Abdomen/GI: Negative for abdominal pain, nausea, vomiting, diarrhea, and constipation, Skin: Negative for injury, rash, and discoloration, Neuro: Negative for headache, weakness, numbness, tingling, and seizure, Psych: Negative for depression, anxiety, suicide ideation, homicidal ideation, and hallucinations, 01:52 MS/extremity: Positive for contusion, decreased range of motion, pain, Exam: :52 Constitutional: This is a well developed, well nourished patient who is awake, alert, rt and in no acute distress. Head/Face: Normocephalic, atraumatic. Chest/axilla: Normal chest wall appearance and motion. Nontender with no deformity. No lesions are appreciated. Cardiovascular: Regular rate and rhythm with a normal S1 and S2. No gallops, murmurs, or rubs. Normal PMI, no JVD. No pulse deficits. Respiratory: Lungs have equal breath sounds bilaterally, clear to auscultation and percussion. No rales, rhonchi or wheezes noted. No increased work of breathing, no retractions or nasal flaring. Abdomen/GI: Soft, non-tender, with normal bowel sounds. No distension or tympany. No guarding or rebound. No evidence of tenderness throughout. Skin: Warm, dry with normal turgor. Normal color with no rashes, no lesions, and no evidence of cellulitis. Neuro: Awake and alert, GCS 15, oriented to person, place, time, and situation. Cranial nerves II-XII grossly intact. Motor strength 5/5 in all extremities. Sensory grossly intact. Cerebellar exam normal. Normal gait. Psych: Awake, alert, with orientation to person, place and time. Behavior, mood, and affect are within normal limits. 01:52 Musculoskeletal/extremity: Bruising with tenderness to the left wrist, decreased range of motion due to pain, no tenderness over elbow, mid to proximal forearm. Able to make a fist, pulses, motor, sensation intact. Vital Signs: 01:32 BP 138 / 74; Pulse 91; Resp 18; Temp 97.3; Pulse Ox 97% on R/A; Weight 77.11 kg; Height pf1 5 ft. 6 in. ; Pain 7/10; 02:55 BP 130 / 93; Pulse 78; Resp 17; Temp 98; Pulse Ox 99% on R/A; rv 01:32 Body Mass Index 27.44 (77.11 kg, 167.64 cm) pf1 01:32 Pain Scale: Adult pf1 MDM: 01:36 Patient medically screened. rt 03:41 Differential diagnosis: Fracture, sprain, contusion. Data reviewed: vital signs, nurses rt notes, radiologic studies. I considered the following discharge prescriptions or medication management in the emergency department Medications were administered in the Emergency Department. See MAR. Independent interpretation of the following test(s) in the Emergency Department X-Ray: My interpretation is No fracture seen on interpretation of x-ray images. Counseling: I had a detailed discussion with the patient and/or guardian regarding the historical points, exam findings, and any diagnostic results supporting the discharge/admit diagnosis, radiology results, the need for outpatient follow up, to return to the emergency department if symptoms worsen or persist or if there are any questions or concerns that arise at home. Response to treatment: the patient's symptoms have markedly improved after treatment. 09/10 01:40 Order name: Wrist Left (3 View) XRAY rt 09/10 01:40 Order name: Ice; Complete Time: 02:06 rt 09/10 02:55 Order name: Wrist Splint; Complete Time: 02:55 rv Administered Medications: 02:06 Drug: Ketorolac IM 30 mg IM once Route: IM; Site: right deltoid; rv 02:56 Follow up: Response: No adverse reaction rv Disposition Summary: 09/10/23 02:40 Discharge Ordered Notes: Location: Home rt Problem: new rt Symptoms: have improved rt Condition: Stable rt Diagnosis - Contusion of left wrist rt Followup: rt - With: Private Physician - When: 5 - 6 days - Reason: Discharge Instructions: - Discharge Summary Sheet rt - Contusion rt Forms: - Medication Reconciliation Form rt - Thank You Letter rt - Antibiotic Education rt - Prescription Opioid Use rt - Patient Portal Instructions rt - Leadership Thank You Letter rt Prescriptions: - acetaminophen-codeine 300-30 mg Oral tablet - take 1 tablet ORAL route every 6 hours as needed for pain; 12 tablet; Refills: rt 0, Product Selection Permitted Signatures: Dispatcher [employer] Vic Hutton RN RN rv Joseph Dela Cruz MD MD rt Gladys Bang RN RN pf1
--- NOTE | 2023-09-10 02:40 | ER ---
Nurse's Notes [facility] Name: Sally Anderson Age: 53 yrs Sex: Female : 1970 Arrival Date: 09/10/2023 Time: 01:16 Bed 19 Private MD: Diagnosis: Contusion of left wrist Presentation: 09/10 01:32 Chief complaint: Patient states: left hand and left wrist pain of 7 with swelling and pf1 contusion,onset 1730. Patient stated injured left hand and wrist while repositioning a heavy metal ladder, when the top portion of the ladder slammed down onto her left hand and catching left hand between the ladder. 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 01:32 Coronavirus screen: Vaccine status: Client denies travel out of the [place] in the last 14 pf1 days. At this time, the client does not indicate any symptoms associated with coronavirus-19. Ebola Screen: Patient negative for fever greater than or equal to 101.5 degrees Fahrenheit, and additional compatible Ebola Virus Disease symptoms. Initial Sepsis Screen: Does the patient meet any 2 criteria? HR > 90 bpm. No. Patient's initial sepsis screen is negative. Does the patient have a suspected source of infection? No. Patient's initial sepsis screen is negative. Risk Assessment: Do you want to hurt yourself or someone else? Patient reports no desire to harm self or others. 01:32 Method Of Arrival: Ambulatory pf1 01:32 Acuity: SAMANTHA 4 pf1 02:31 Onset of symptoms was September 10, 2023. rv Triage Assessment: 02:30 General: Appears uncomfortable, Behavior is calm, cooperative. Pain: Complains of pain rv in left hand. Neuro: Level of Consciousness is awake, alert, obeys commands, Oriented to person, place, time, situation. Cardiovascular: Capillary refill < 3 seconds Patient's skin is warm and dry. Respiratory: Airway is patent Respiratory effort is even, unlabored. 02:31 Injury Description: pain and swelling to left hand and wrist. rv Historical: - Allergies: 01:57 Bees; pf1 - PMHx: 01:57 None; pf1 - PSHx: 01:57 Appendectomy; Cholecystectomy; hemicolectomy; left knee scope; uterine ablation; pf1 - Immunization history:: Adult Immunizations up to date, 5 doses of pfizer Last tetanus immunization: < 10 years ago Flu vaccine is up to date. - Social history:: Smoking status: Patient denies any tobacco usage or history of. Patient uses alcohol, only on a social basis. Patient/guardian denies using street drugs. Screenin:02 [facility] ED Fall Risk Assessment (Adult) History of falling in the last 3 months, pf1 including since admission No falls in past 3 months (0 pts) Confusion or Disorientation No (0 pts) Intoxicated or Sedated No (0 pts) Impaired Gait No (0 pts) Mobility Assist Device Used No (0 pt) Altered Elimination No (0 pt) Score/Fall Risk Level 0 - 2 = Low Risk Oriented to surroundings, Maintained a safe environment, Educated pt \T\ family on fall prevention, incl call for assistance when getting out of bed, Assessed \T\ reinforced patient's understanding of fall precautions, Provided non-skid footwear, Hourly rounding (assess needs \T\ fall precautionary measures) done, Used ambulatory aids as needed (educated on \T\ assisted with), Used gait belt as appropriate. Abuse screen: Denies threats or abuse. Nutritional screening: No deficits noted. Tuberculosis screening: No symptoms or risk factors identified. Assessment: 01:35 Musculoskeletal: Reports pain in left hand and left wrist. pf1 02:00 General: Appears in no apparent distress. uncomfortable, well groomed, well developed, pf1 Behavior is calm, cooperative, appropriate for age, quiet. Pain: Complains of pain in left wrist and left hand Pain currently is 7 out of 10 on a pain scale. Neuro: No deficits noted. Level of Consciousness is awake, alert, obeys commands, Oriented to person, place, time, situation. Cardiovascular: No deficits noted. Capillary refill < 3 seconds Patient's skin is warm and dry. Respiratory: No deficits noted. Airway is patent Respiratory effort is even, unlabored, Respiratory pattern is regular, symmetrical. GI: No deficits noted. No signs and/or symptoms were reported involving the gastrointestinal system. : No deficits noted. No signs and/or symptoms were reported regarding the genitourinary system. EENT: No deficits noted. No signs and/or symptoms were reported regarding the EENT system. Derm:. Vital Signs: 01:32 BP 138 / 74; Pulse 91; Resp 18; Temp 97.3; Pulse Ox 97% on R/A; Weight 77.11 kg; Height pf1 5 ft. 6 in. ; Pain 7/10; 02:55 BP 130 / 93; Pulse 78; Resp 17; Temp 98; Pulse Ox 99% on R/A; rv 01:32 Body Mass Index 27.44 (77.11 kg, 167.64 cm) pf1 01:32 Pain Scale: Adult pf1 ED Course: 01:23 Patient arrived in ED. gm2 01:25 Joseph Dela Cruz MD is Attending Physician. rt 01:56 Triage completed. pf1 02:02 Patient has correct armband on for positive identification. Bed in low position. Call pf1 light in reach. 02:05 Vic Mckinnon RN is Primary Nurse. rv 02:08 X-ray completed. Portable x-ray completed in exam room. Patient tolerated procedure mh1 well. 02:15 Wrist Left (3 View) XRAY In Process Unspecified. EDMS 02:30 Arm band placed on right wrist. rv 02:30 No provider procedures requiring assistance completed. Patient did not have IV access rv during this emergency room visit. Administered Medications: 02:06 Drug: Ketorolac IM 30 mg IM once Route: IM; Site: right deltoid; rv 02:56 Follow up: Response: No adverse reaction rv Medication: 02:31 VIS not applicable for this client. rv Outcome: 02:40 Discharge ordered by MD. rt 02:56 Discharged to home ambulatory, rv 02:56 Condition: good 02:56 Discharge instructions given to patient, Instructed on discharge instructions, follow up and referral plans. medication usage, Demonstrated understanding of instructions, follow-up care, medications, Prescriptions given X 1, 02:56 Patient left the ED. rv Signatures: Dispatcher [employer] EDMS ArronMadeline 1 Vic Mckinnon, ROSHAN RN rv Joseph Dela Cruz MD MD rt Gladys Bang RN RN 1 Hanh Zhang gm2
[2023-09-10 03:04] VITALS: BP 130/93; TEMP 98; O2SAT 99
--- NOTE | 2023-09-11 15:02 | RAD REPORT ---
EXAM DESCRIPTION: XR Left Wrist Complete, 3 or More Views CLINICAL HISTORY: The patient is 53 years old and is Female; PAIN Bed Name: 19 TECHNIQUE: Frontal, lateral and oblique views of the left wrist. COMPARISON: No relevant prior studies available. FINDINGS: BONES/JOINTS: Degenerative changes of the left 1st interphalangeal joint. No acute fract ure. No suspicious lytic or blastic bone lesions. No subluxation or dislocation. SOFT TISSUES: Unremarkable No radiopaque foreign body. IMPRESSION: No acute left wrist abnormalities. Electronically signed by: Martín Hurtado MD 09/10/2023 02:31 AM [employer] Due to temporary technical issues with the PACS/Fluency reporting system, reports are being signed by the in house radiologist without review as a courtesy to ensure prompt reporting. The interpreting r adiologist is fully responsible for the content of the report.
== END 2023-09-10 02:56 | disposition home or self-care (01) ==
LOC: ER 01:16
DX: S60.212A Contusion of left wrist, initial encounter (principal); Z91.030 Bee allergy status
CPT/HCPCS: 96372; 99284